=== PATIENT | male | born 1960 | race Caucasian/White ===

== ENCOUNTER 2021-11-06 21:36 | Inpatient (IN) ==
[2021-11-06] MEDS ORDERED: ONDANSETRON INJ 2 MG/ML 2 ML VIAL IV STA (21:45)
[2021-11-06 22:00] LABS: Basophils # (auto) 0.04 K/uL (0-0.2); Basophils % (auto) 0.6 %; Eosinophils # (auto) 0.27 K/uL (0-0.5); Eosinophils % (auto) 4.1 %; Hematocrit (blood only) 45.3 % (42-52); Hemoglobin 15.7 g/dL (14.0-18.0); Lymphocytes # (auto) 2.44 K/uL (1.2-3.4); Lymphocytes % (auto) 37.1 %; Mean Corpuscular Hemoglobin 31.6 pg (25-34); Mean Corpuscular Hgb Conc 34.7 g/dL (32-36); Mean Corpuscular Volume 91.1 fL (80-100); Mean Platelet Volume 11.5 fL (7.4-10.4); Monocytes # (auto) 0.62 K/uL (0.11-0.59); Monocytes % (auto) 9.4 %; Neutrophils # (auto) 3.21 K/uL (1.4-6.5); Neutrophils % (auto) 48.8 %; Platelet Count 203 K/uL (130-400); RDW Standard Deviation 47.1 fL (36.4-46.3); Red Blood Count 4.97 M/uL (4.7-6.1); White Blood Count 6.58 K/uL (4.8-10.8)
[2021-11-06 22:23] LABS: Albumin Globulin Ratio 1.5 (0.9-2); Albumin Level 4.4 gm/dl (3.4-5.0); BUN Creatinine Ratio 15.2 (10-20); Bilirubin,Total 0.8 mg/dl (0.2-1.0); Calcium 9.5 mg/dl (8.5-10.1); Creatinine Clr Calc Pharmacy 91.1 ml/min; Est GFR (African American) 88.4 ml/min; Est GFR (Non-African American) 76.2 ml/min; Globulin 2.9 gm/dl (2.5-4.0); Potassium 3.5 mmol/L (3.5-5.1); Total Protein 7.3 gm/dl (6.0-8.3)
[2021-11-06 22:26] LABS: Troponin I 0.14 ng/ml (0-0.04)
[2021-11-06] MEDS ORDERED: Heparin IV Adult Wt-Based Standard WITH Bolus Protocol IV STA (22:51)
[2021-11-06] MEDS ORDERED: HEPARIN SOD (PORCINE) 1000 UNIT/ML IV ONE (23:06)
[2021-11-06] MEDS ORDERED: HEPARIN SODIUM/DEXTROSE 25,000 UNITS/500 ML BAG IV SCH (23:15)
--- NOTE | 2021-11-06 23:18 | Emergency Department Note ---
History of Present Illness General Chief complaint: Cardiac Assessment Time Seen by Provider: 11/06/21 21:44 History of Present Illness This 61-year-old on Xarelto for history of blood clots presents to the ER co mplaining of pain with nausea and diaphoresis tonight that has resolved after aspirin times Location: Chest Quality: Discomfort Severity: Moderate Duration: Tonight Timing: Tonight Context: Patient was concerned and called EMS Modifying factors: better with aspirin; worse with nothing Patient states he took a Xarelto and then vomited immediately afterwards tonight. He thought his chest pain was from reflux as this appears to be recurrent problem for him. He has appointment next month with cardiology for stress test. No prior heart attack. Patient denies dyspnea, abdominal pain, f ever, chills, flulike illness. Home Medications Medication Instructions Recorded Confirmed Type cholecalciferol (vitamin D3) 50 2,000 mcg PO DAILY 05/28/20 11/06/21 History mcg (2,000 unit) capsule losartan 25 mg tablet 25 mg PO DAILY 05/28/20 11/06/21 History metoprolol succinate 25 mg 25 mg PO DAILY 05/28/20 11/06/21 History tablet,extended release 24 hr rivaroxaban 10 mg tablet (Xarelto) 10 mg PO QPM 05/28/20 11/06/21 History atorvastatin 10 mg tablet 10 mg PO QAM 11/06/21 11/06/21 History levothyroxine 25 mcg tablet 25 mcg PO QAM 11/06/21 11/06/21 History omeprazole 40 mg capsule,delayed 40 mg PO QAM PRN 11/06/21 11/06/21 History release omeprazole 40 mg capsule,delayed 40 mg PO QPM 11/06/21 11/06/21 History release triamcinolone acetonide 0.1 % 1 applic MUCOUS MEMBRANE TID 11/06/21 11/06/21 History dental paste (Oralone) Allergies Allergy/AdvReac Type Severity Reaction Status Date / Time lisinopril Allergy Unknown dry cough Verified 11/06/21 23:19 Past Med/Surg History Medical History Family history of blood clots Hypertension Surgical History H/O vasectomy Social History Smoking Status: Current every day smoker Tobacco Type: Cigarettes Preferred Language: Italian Feels Safe at Home: Yes Review of Systems A total of 10 systems reviewed and were otherwise negative Physical Exam Vital Signs Vital Signs - 24 hr 11/06/21 21:22 11/06/21 21:45 11/06/21 23:22 Temperature 36.7 C Temperature Source Oral Pulse Rate 66 Pulse Rate [Left Finger] 54 L Pulse Rhythm Regular Pulse Rhythm [Left Finger] Regular Pulse Strength Normal Pulse Strength [Left Finger] Normal Respiratory Rate 16 18 Respiratory Effort / Characteristics Non-Labored Non-Labored Respiratory Depth Normal Normal Respiratory Pattern Regular Blood Pressure [Left Arm] 128/88 121/77 Blood Pressure Mean [Left Arm] 101 91 Blood Pressure Position Semi-fowlers Blood Pressure Position [Left Arm] Semi-fowlers Lying Pulse Oximetry 96 96 97 Oxygen Delivery Method Room Air Room Air Sepsis Recent Fever Within 48 Hours No Sepsis New/Unexplained Change in Mental Status No Sepsis Action Taken by Nursing No Action Required VITALS: Vitals are noted on the nurse's note and reviewed by myself. Vital signs stable. GENERAL: Pleasant male, in no acute distress, nondiaphoretic, well-developed well-nourished. SKIN: The skin was without rashes, erythema, edema, or bruising. There is no tenting of the skin. Capillary reflex less than 2 seconds. HEAD: Normocephalic atraumatic. EARS: External auditory canals clear, EYES: Pupils equal round and reactive to light and accommodation. Conjunctivae without injection, sclerae without icterus. Extraocular movements intact. NOSE: Patent, turbinates without inflammation or discharge. MOUTH: Mucous membranes moist. Pharynx without erythema or exudate. Uvula midline. Airway patent. Tongue does not deviate. NECK: Supple without nuchal rigidity. No lymphadenopathy. No thyromegaly. Cervical spine is nontender. No JVD. HEART: Regular rate and rhythm LUNGS: Clear to auscultation bilaterally without wheezes, rales or rhonchi. No retractions or accessory muscle use. ABDOMEN: Positive bowel sounds x 4. Normal tympanic percussion. Soft, nontender, without masses or organomegaly. Dunne sign negative. No guarding o r rebound tenderness. No CVA tenderness MUSCULOSKELETAL: No muscle atrophy, erythema, or edema noted. NEURO: Patient was alert and oriented to person place and time. Normal sensation to light and sharp touch. No focal neurological deficits. Course Administered Medications Discontinued Medications Ondansetron HCl (Ondansetron Inj 2 Mg/Ml 2 Ml Vial) 4 mg IV NOW STA Stop: 11/06/21 21:46 Last Admin: 11/06/21 21:53 Dose: 4 mg Documented by: [id number] Critical Care Time Critical Care Time: Yes Total Critical Care Time: 35 I have personally spent 35 minutes of critical care time in the direct management of this patient. This includes bedside care, interpretation of diagnostic studies, and testing, discussion with consultants, patient, and family members, and other required patient management activities. This 35 minutes is in excess of all separately billable procedures. Medical Decision Making Medical Records Attestation: I reviewed the patient's medical records. Home Medications Current Medication List: was personally reviewed by me Laboratory Data Attestation: I reviewed the patient's lab results. Result diagrams: 11/06/21 21:50 11/06/21 21:50 Lab Results 11/06/21 11/06/21 11/06/21 Range/Units 21:50 21:50 22:49 WBC 6.58 (4.8-10.8) K/uL RBC 4.97 (4.7-6.1) M/uL Hgb 15.7 (14.0-18.0) g/dL Hct 45.3 (42-52) % MCV 91.1 (80-100) fL MCH 31.6 (25-34) pg MCHC 34.7 (32-36) g/dL RDW Std Deviation 47.1 H (36.4-46.3) fL RDW Coeff of Dane 14.0 (11.5-14.5) % Plt Count 203 (130-400) K/uL MPV 11.5 H (7.4-10.4) fL Immature Gran % (Auto) 0.0 % Neut % (Auto) 48.8 % Lymph % (Auto) 37.1 % [place] % (Auto) 9.4 % Eos % (Auto) 4.1 % Baso % (Auto) 0.6 % Neut # (Auto) 3.21 (1.4-6.5) K/uL Lymph # (Auto) 2.44 (1.2-3.4) K/uL [place] # (Auto) 0.62 H (0.11-0.59) K/uL Eos # (Auto) 0.27 (0-0.5) K/uL Baso # (Auto) 0.04 (0-0.2) K/uL Immature Gran # (Auto) 0.00 (0.00-0.02) K/uL PT (9.0-12.0) Seconds INR (0.9-1.1) APTT (21.0-31.0) Seconds PTT Ratio Sodium 138 (136-145) mmol/L Potassium 3.5 (3.5-5.1) mmol/L Chloride 102 (98-107) mmol/L Carbon Dioxide 29 (21-32) mmol/L Anion Gap 7 (3-11) BUN 16 (6-23) mg/dl Creatinine 1.05 (0.6-1.4) mg/dl Est Cr Clr Drug Dosing 91.1 ml/min Est GFR ( Amer) 88.4 ml/min Est GFR (Non-Af Amer) 76.2 ml/min BUN/Creatinine Ratio 15.2 (10-20) Glucose 104 H (70-99(Fasting)) mg/dl Calcium 9.5 (8.5-10.1) mg/dl Total Bilirubin 0.8 (0.2-1.0) mg/dl AST 18 (13-39) U/L ALT 14 (7-52) U/L Alkaline Phosphatase 52 (34-104) U/L Troponin I 0.14 H* (0-0.04) ng/ml Total Protein 7.3 (6.0-8.3) gm/dl Albumin 4.4 (3.4-5.0) gm/dl Globulin 2.9 (2.5-4.0) gm/dl Albumin/Globulin Ratio 1.5 (0.9-2) Lipase 22 (11-82) U/L SARS-CoV-2, RNA, NAAT NEGATIVE (NEGATIVE) 11/06/21 Range/Units 23:05 WBC (4.8-10.8) K/uL RBC (4.7-6.1) M/uL Hgb (14.0-18.0) g/dL Hct (42-52) % MCV (80-100) fL MCH (25-34) pg MCHC (32-36) g/dL RDW Std Deviation (36.4-46.3) fL RDW Coeff of Dane (11.5-14.5) % Plt Count (130-400) K/uL MPV (7.4-10.4) fL Immature Gran % (Auto) % Neut % (Auto) % Lymph % (Auto) % [place] % (Auto) % Eos % (Auto) % Baso % (Auto) % Neut # (Auto) (1.4-6.5) K/uL Lymph # (Auto) (1.2-3.4) K/uL [place] # (Auto) (0.11-0.59) K/uL Eos # (Auto) (0-0.5) K/uL Baso # (Auto) (0-0.2) K/uL Immature Gran # (Auto) (0.00-0.02) K/uL PT 11.1 (9.0-12.0) Seconds INR 1.0 (0.9-1.1) APTT 29.5 (21.0-31.0) Seconds PTT Ratio 1.1 Sodium (136-145) mmol/L Potassium (3.5-5.1) mmol/L Chloride (98-107) mmol/L Carbon Dioxide (21-32) mmol/L Anion Gap (3-11) BUN (6-23) mg/dl Creatinine (0.6-1.4) mg/dl Est Cr Clr Drug Dosing ml/min Est GFR ( Amer) ml/min Est GFR (Non-Af Amer) ml/min BUN/Creatinine Ratio (10-20) Glucose (70-99(Fasting)) mg/dl Calcium (8.5-10.1) mg/dl Total Bilirubin (0.2-1.0) mg/dl AST (13-39) U/L ALT (7-52) U/L Alkaline Phosphatase (34-104) U/L Troponin I (0-0.04) ng/ml Total Protein (6.0-8.3) gm/dl Albumin (3.4-5.0) gm/dl Globulin (2.5-4.0) gm/dl Albumin/Globulin Ratio (0.9-2) Lipase (11-82) U/L SARS-CoV-2, RNA, NAAT (NEGATIVE) Imaging Data Attestation: I personally reviewed and interpreted this imaging study as follows: MDM Narrative Prior records/ancillary studies reviewed. Triage Nursing notes reviewed. Additional history obtained from EMS. The patient's history was concerning for chest pain. Differential diagnosis: Etiologies such as cardiac ischemia, aortic dissection, pulmonary embolism, pneumonia, pneumothorax, musculoskeletal, infections, pericarditis, myocarditis, esophageal rupture, gastrointestinal, as well as others were entertained. Physical examination: As above. ER treatment provided: An order was placed for continuous cardiac monitoring. The monitor shows a rate of 60-100 with a sinus rhythm. Heparin On reassessment the patient felt better. Diagnostic interpretation by me: #1 the electrocardiogram was ordered for chest pain EKG: Normal sinus, normal intervals, T wave inversion in aVL, T wave depression in the lateral leads, rate of 63. EKG compared to prior EKG with new ST-T wave changes noted. Impression normal sinus rhythm with ST-T wave changes interpreted by myself I think arrhythmia is unlikely. EKG shows normal sinus rhythm with no interval abnormalities such as QT prolongation or WPW. There are no findings to suggest Brugada syndrome. Cardiac monitoring in the emergency department reveals no tachycardic or bradycardic dysrhythmia. Hypertrophic cardiomyopathy was considered but there are no clear historical elements pointing toward this. EKG is not suggestive. The QRS voltage is not extremely large and there are no suggestive Q waves. #2 the electrocardiogram was ordered for chest pain EKG: Normal sinus, normal intervals, T wave inversion in aVL, T wave depression in the lateral leads, rate of 58. EKG compared to prior EKG with new ST-T wave changes noted. Impression sinus bradycardia with ST-T wave changes interpreted by myself I think arrhythmia is unlikely. EKG shows normal sinus rhythm with no interval abnormalities such as QT prolongation or WPW. There are no findings to suggest Brugada syndrome. Cardiac monitoring in the emergency department reveals no tachycardic or bradycardic dysrhythmia. Hypertrophic cardiomyopathy was considered but there are no clear historical elements pointing toward this. EKG is not suggestive. The QRS voltage is not extremely large and there are no suggestive Q waves. I did review the rhythm strips from EMS. The labs elevated troponin Imaging studies: Chest x-ray with no acute consolidation, pneumothorax or free air per my interpretation HEART SCORE: Hx: high/mod/low suspicion: 2 ECG: ST depression/nonspecific changes/normal: 2 Age: Greater than 65/45-64/less than 45: 1 Risk factors: (Hypertension, hyperlipidemia, diabetes, coronary disease, tobacco use, cocaine use): 1 Troponin: Greater than 2 times normal limits/1-2 times normal limits/normal: 1 Total: 7 Consultation: A consultation was placed with the hospitalist. The case was discussed and diagnostics were reviewed. The patient was evaluated in the ER for further treatment. Exam and history seem consistent with NSTEMI. Patient was given heparin. This was discussed with my attending. Results reviewed with patient and . All questions were answered. Patient will be admitted. Hospitalist was consulted. By the evaluation outlined above emergent etiologies such as aortic dissection, pulmonary embolism, pneumonia, pneumothorax, gastrointestinal, as well as others were deemed relatively unlikely. The pt informed about the findings as listed above. All questions were answered and pleased with the treatment. The chart was completed utilizing [employer] voice recognition software. Grammatical errors, random word insertions, pronoun errors, and incomplete sentences are an occassional consequence of this system due to software limitations, ambient noise, and hardware issues. Any formal questions or concerns about the content, text, or information contained within the body of this dictation should be directly addressed to the physician access services assistant for clarification. Impression & Plan Acute non-ST elevation myocardial infarction (NSTEMI) Discharge Plan Visit Data Chief Complaint: Cardiac Assessment ED Provider: Jad Agrawal ED Midlevel Provider: Andria Moss Discharge Problem: Acute non-ST elevation myocardial infarction (NSTEMI) Patient Disposition: Admitted As Inpatient Condition: Good Forms Stand Alone Forms: My [facility] Prescriptions Prescriptions: No Action losartan 25 mg tablet 25 mg PO DAILY RF: 0 metoprolol succinate 25 mg tablet extended release 24 hr 25 mg PO DAILY RF: 0 cholecalciferol (vitamin D3) 50 mcg (2,000 unit) capsule 2,000 mcg PO DAILY RF: 0 Xarelto 10 mg tablet 10 mg PO QPM RF: 0 atorvastatin 10 mg tablet 10 mg PO QAM RF: 0 omeprazole 40 mg capsule,delayed release(DR/EC) 40 mg PO QPM RF: 0 omeprazole 40 mg capsule,delayed release(DR/EC) 40 mg PO QAM PRN (Reason: Acid Reflux) RF: 0 levothyroxine 25 mcg tablet 25 mcg PO QAM RF: 0 triamcinolone acetonide [Oralone] 0.1 % paste 1 applic mucous membrane TID RF: 0 Referrals Referrals: Martita Urbina PA-C [Primary Care Provider] -
[2021-11-06 23:41] LABS: Partial Thromboplastin Ratio 1.1; Partial Thromboplastin Time 29.5 Seconds (21.0-31.0); Prothrombin Time 11.1 Seconds (9.0-12.0)
--- NOTE | 2021-11-07 00:42 | History & Physical Report ---
Date of Service November 07, 2021 Assessment & Plan (1) Acute non-ST elevation myocardial infarction (NSTEMI): Plan: hx nonocclusive CAD/PVD hypertension, stable hyperlipidemia on statin Rx LE DVT on Xarelto hx pituitary microadenoma/hypophysitis, stable hypothyroidism, euthyroid as of today's TSH prediabetes, hemoglobin A1c of 6 from 2017 Hypokalemia secondary to emesis ongoing tobacco abuse PCU Aspirin, beta-sherita, statin; nitro as needed IV heparin Follow troponin TTE, Cardiology consult Re: Non-STEMI N.p.o./hold Xarelto until patient seen by cardiology in a.m. Update lipid profile and hemoglobin A1c Nicotine patch as needed Replace potassium DVT prophylaxis. IV heparin Full code Text document was generated using [employer] voice recognition software. It may contain grammatical or spelling errors. Kindly contact undersigned for clarification of any documentation item in question. History of Present Illness Chief Complaint: Chest pain Primary Care Provider: Martita Urbina History obtained from patient and records. Medical history significant for nonocclusive CAD, history of myopericarditis, PVD, hypertension, hyperlipidemia, LE DVT on Xarelto, pituitary microadenoma/hypophysitis, hypothyroidism, prediabetes, ongoing tobacco abuse. Last confinement July 2009 for non-STEMI. Patient transferred to [facility]. Cardiac cath demonstrated 50% lesion mid LAD not found to be hemodynamically significant. EF initially found to be 49%. In the last month, patient noted 2 episodes of achy chest discomfort noted at night with shortness of breath relieved by antacid intake. Intermittent palpitation episodes. PCP recommended outpatient cardiology evaluation. Patient seen by [facility] cardiology last week. 14-day 0 monitor recommended. Stress echo and outpatient GI referral for possible EGD recommended. Patient counseled to resume home aspirin intake which patient has not been compliant with for a few years. Last night after dinner, patient noted achy chest discomfort initially relieved by Tums but later on noted to be persistent and more intense with radiation to the neck/jaw and with associated diaphoresis symptoms. Some relief with ASA intake at home. Nausea/emesis symptoms at the ER. IV heparin initiated at the ER. 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 Allergies Allergy/AdvReac Type Severity Reaction Status Date / Time lisinopril Allergy Unknown dry cough Verified 11/06/21 23:19 Home Medications Medication Instructions Recorded Confirmed Type cholecalciferol (vitamin D3) 50 2,000 mcg PO DAILY 05/28/20 11/06/21 History mcg (2,000 unit) capsule losartan 25 mg tablet 25 mg PO DAILY 05/28/20 11/06/21 History metoprolol succinate 25 mg 25 mg PO DAILY 05/28/20 11/06/21 History tablet,extended release 24 hr rivaroxaban 10 mg tablet (Xarelto) 10 mg PO QPM 05/28/20 11/06/21 History atorvastatin 10 mg tablet 10 mg PO QAM 11/06/21 11/06/21 History levothyroxine 25 mcg tablet 25 mcg PO QAM 11/06/21 11/06/21 History omeprazole 40 mg capsule,delayed 40 mg PO QAM PRN 11/06/21 11/06/21 History release omeprazole 40 mg capsule,delayed 40 mg PO QPM 11/06/21 11/06/21 History release triamcinolone acetonide 0.1 % 1 applic MUCOUS MEMBRANE TID 11/06/21 11/06/21 History dental paste (Oralone) Past Med/Surg History Medical History Family history of blood clots Hypertension Surgical History H/O vasectomy Social History Smoking Status: Current every day smoker Tobacco Type: Cigarettes Tobacco Cessation Education Requested by Patient: No Hx Alcohol Use: No Hx Substance Use: No Preferred Language: Mongolian Communication Ability: Effective Contestant Coordinator Required: No Beliefs That Will Affect Care: None Current Living Situation: Spouse Other Information That Helps Us Care for You: No Feels Safe at Home: Yes Safety Concerns: Feels Safe At This Time Assistive Devices: None Review of Systems Review of Systems: As per HPI, all 10 systems reviewed, all other ROS negative Physical Exam Physical Exam: GENERAL: Comfortable, pleasant, no respiratory distress SKIN: Normal color, warm HEENT: Partial alopecia, bespectacled, [place] palpebral conjunctivae, no ptosis, moist buccal mucosa NECK : Supple, no tenderness CHEST : CTA, no tenderness HEART : Bradycardic, no obvious murmurs ABDOMEN: Some distention, nontender EXTREMITIES : No LE swelling/tenderness, no other conspicuous deformities noted NEUROLOGIC : Coherent, no facial asymmetry, no other gross focality Results & Data Results & Data ([facility]) Vital Signs (Past 12 Hours) Vital Signs Temp Pulse Pulse Resp BP Pulse Ox 11/06/21 23:22 54 L 18 121/77 97 11/06/21 21:45 96 11/06/21 21:22 36.7 C 66 16 128/88 96 Laboratory Results Laboratory Results WBC 6.58 K/uL (4.8-10.8) 11/06/21 21:50 RBC 4.97 M/uL (4.7-6.1) 11/06/21 21:50 Hgb 15.7 g/dL (14.0-18.0) 11/06/21 21:50 Hct 45.3 % (42-52) 11/06/21 21:50 MCV 91.1 fL (80-100) 11/06/21 21:50 MCH 31.6 pg (25-34) 11/06/21 21:50 MCHC 34.7 g/dL (32-36) 11/06/21 21:50 RDW Std Deviation 47.1 fL (36.4-46.3) H 11/06/21 21:50 RDW Coeff of Dane 14.0 % (11.5-14.5) 11/06/21 21:50 Plt Count 203 K/uL (130-400) 11/06/21 21:50 MPV 11.5 fL (7.4-10.4) H 11/06/21 21:50 Immature Gran % (Auto) 0.0 % 11/06/21 21:50 Neut % (Auto) 48.8 % 11/06/21 21:50 Lymph % (Auto) 37.1 % 11/06/21 21:50 [place] % (Auto) 9.4 % 11/06/21 21:50 Eos % (Auto) 4.1 % 11/06/21 21:50 Baso % (Auto) 0.6 % 11/06/21 21:50 Neut # (Auto) 3.21 K/uL (1.4-6.5) 11/06/21 21:50 Lymph # (Auto) 2.44 K/uL (1.2-3.4) 11/06/21 21:50 [place] # (Auto) 0.62 K/uL (0.11-0.59) H 11/06/21 21:50 Eos # (Auto) 0.27 K/uL (0-0.5) 11/06/21 21:50 Baso # (Auto) 0.04 K/uL (0-0.2) 11/06/21 21:50 Immature Gran # (Auto) 0.00 K/uL (0.00-0.02) 11/06/21 21:50 PT 11.1 Seconds (9.0-12.0) 11/06/21 23:05 INR 1.0 (0.9-1.1) 11/06/21 23:05 APTT 29.5 Seconds (21.0-31.0) 11/06/21 23:05 PTT Ratio 1.1 11/06/21 23:05 Sodium 138 mmol/L (136-145) 11/06/21 21:50 Potassium 3.5 mmol/L (3.5-5.1) 11/06/21 21:50 Chloride 102 mmol/L (98-107) 11/06/21 21:50 Carbon Dioxide 29 mmol/L (21-32) 11/06/21 21:50 Anion Gap 7 (3-11) 11/06/21 21:50 BUN 16 mg/dl (6-23) 11/06/21 21:50 Creatinine 1.05 mg/dl (0.6-1.4) 11/06/21 21:50 Est Cr Clr Drug Dosing 91.1 ml/min 11/06/21 21:50 Est GFR ( Amer) 88.4 ml/min 11/06/21 21:50 Est GFR (Non-Af Amer) 76.2 ml/min 11/06/21 21:50 BUN/Creatinine Ratio 15.2 (10-20) 11/06/21 21:50 Glucose 104 mg/dl (70-99(Fasting)) H 11/06/21 21:50 Calcium 9.5 mg/dl (8.5-10.1) 11/06/21 21:50 Total Bilirubin 0.8 mg/dl (0.2-1.0) 11/06/21 21:50 AST 18 U/L (13-39) 11/06/21 21:50 ALT 14 U/L (7-52) 11/06/21 21:50 Alkaline Phosphatase 52 U/L (34-104) 11/06/21 21:50 Troponin I 0.14 ng/ml (0-0.04) H* 11/06/21 21:50 Total Protein 7.3 gm/dl (6.0-8.3) 11/06/21 21:50 Albumin 4.4 gm/dl (3.4-5.0) 11/06/21 21:50 Globulin 2.9 gm/dl (2.5-4.0) 11/06/21 21:50 Albumin/Globulin Ratio 1.5 (0.9-2) 11/06/21 21:50 Lipase 22 U/L (11-82) 11/06/21 21:50 SARS-CoV-2, RNA, NAAT NEGATIVE (NEGATIVE) 11/06/21 22:49 Diagnostic Findings Chest x-ray as per my interpretation atelectasis, elevated right hemidiaphragm EKG as per my interpretation : Rate 55, sinus bradycardia, LAD, LAFB, T wave abnormalities lateral leads
[2021-11-07] MEDS ORDERED: LACTATED RINGER'S 1,000 ML IV SCH (01:00)
--- NOTE | 2021-11-07 02:01 | Emergency Department Note ---
ED Visit Note Patient was seen in conjunction with the physician assistant infant teacher, please see her note for full details. In brief, the patient is a 61-year-old gentleman who presented to the emergency department with chief complaint of transient episode of chest pain.His initial EKG did not show any evidence of ST elevation, on my assessment he is pain-free and he has been largely pain-free throughout his stay here in the ED. His troponin was noted to be elevated initially at 0.14, patient was placed on a heparin drip and admitted to the hospitalist service. While still here in the ED although admitted to the hospitalist service, he was noted to have an elevation in his troponin to 4.7 on repeat, I did evaluate the patient in the room at this point and I did repeat an EKG that shows some more pronounced T wave inversions in leads V2 through V5, there is no ST elevation, patient remains pain-free at this time, he is on heparin drip, he was already given aspirin. Patient states he is currently comfortable. He tells me he does not have any chest pain. I discussed the above findings with the on-call hospitalist, Dr. Hanson, who is aware of these lab and EKG changes,and he is updated that the patient is still pain-free. We will plan for cardiology consultation in the morning for likely diagnostic catheterization. Patient is updated and aware and he was admitted in stable condition. .
[2021-11-07] MEDS ORDERED: PROMETHAZINE HCL 12.5 MG in SODIUM CHLORIDE 0.9% 50 ML IV PRN (02:44)
[2021-11-07] MEDS ORDERED: traMADol HCL 50 MG TABLET PO PRN (02:44)
[2021-11-07] MEDS ORDERED: MoRPHine SULFATE 4 MG/ML 1 ML CARP\\VIAL IV PRN (02:44)
[2021-11-07] MEDS ORDERED: NITROGLYCERIN SL 0.4 MG/TAB TAB SL PRN (02:44)
[2021-11-07] MEDS ORDERED: LORazepam 2 MG/1 ML VIAL IV PRN (02:44)
[2021-11-07] MEDS ORDERED: ACETAMINOPHEN 325 MG TAB PO PRN (02:44)
[2021-11-07] MEDS: LEVOTHYROXINE SODIUM 25 MCG TABLET PO SCH (05:36)
[2021-11-07 06:42] LABS: Basophils # (auto) 0.04 K/uL (0-0.2); Basophils % (auto) 0.6 %; Eosinophils # (auto) 0.29 K/uL (0-0.5); Eosinophils % (auto) 4.7 %; Hematocrit (blood only) 42.2 % (42-52); Hemoglobin 14.6 g/dL (14.0-18.0); Immature Granulocytes # (auto) 0.01 K/uL (0.00-0.02); Immature Granulocytes % (auto) 0.2 %; Lymphocytes # (auto) 2.52 K/uL (1.2-3.4); Lymphocytes % (auto) 40.7 %; Mean Corpuscular Hemoglobin 31.2 pg (25-34); Mean Corpuscular Hgb Conc 34.6 g/dL (32-36); Mean Corpuscular Volume 90.2 fL (80-100); Mean Platelet Volume 11.8 fL (7.4-10.4); Monocytes # (auto) 0.54 K/uL (0.11-0.59); Monocytes % (auto) 8.7 %; Neutrophils # (auto) 2.79 K/uL (1.4-6.5); Neutrophils % (auto) 45.1 %; Platelet Count 191 K/uL (130-400); RDW Coefficient of Variation 14.2 % (11.5-14.5); RDW Standard Deviation 46.5 fL (36.4-46.3); Red Blood Count 4.68 M/uL (4.7-6.1); White Blood Count 6.19 K/uL (4.8-10.8)
[2021-11-07 06:47] LABS: Estimated Average Glucose 120 mg/dl; Hemoglobin A1C 5.8 % (4.5-5.6)
[2021-11-07 06:53] LABS: BUN Creatinine Ratio 17.4 (10-20); Calcium 8.1 mg/dl (8.5-10.1); Chol HDL Ratio 4.1 (0-5); Creatinine Clr Calc Pharmacy 95.3 ml/min; Est GFR (African American) 103.7 ml/min; Est GFR (Non-African American) 89.5 ml/min; Potassium 3.9 mmol/L (3.5-5.1)
[2021-11-07 06:57] LABS: Troponin I 9.9 ng/ml (0-0.04)
[2021-11-07 07:02] LABS: Partial Thromboplastin Ratio > 5.1
[2021-11-07] MEDS ORDERED: PERFLUTREN LIPID MICROSPHERE (DEFINITY) IV ONE (07:09)
[2021-11-07 07:21] LABS: Partial Thromboplastin Time > 139.0 Seconds (21.0-31.0)
--- NOTE | 2021-11-07 07:52 | XRay Report ---
XR chest 1V portable HISTORY: 61 years-old Male Chest Pain acute atypical chest pain COMPARISON: Chest radiograph 05/06/2021 TECHNIQUE: Portable AP view of the chest FINDINGS: The cardiac silhouette is upper limits of normal in size. No pneumothorax, large pleural effusion or overt pulmonary edema. Mild blunting of the left costophrenic angle with minimal bibasilar densities suggestive of atelectasis. Degenerative changes of the shoulders and spine. IMPRESSION: Mild blunting of the left costophrenic angle, likely secondary to atelectasis versus trac e pleural effusion. ACT 112: Negative or not required by law. The above report was generated using voice recognition software. It may contain grammatical, syntax o r spelling errors. Electronically signed by: David Rubin M.D. 11/07/2021 7:51 AM
--- NOTE | 2021-11-07 08:24 | Cardiology Consultation ---
Date of Consultation November 07, 2021 History of Present Illness Reason for Consultation: EKG changes, abnormal echo, NSTEMI Requesting Physician: [facility] Hospitalist team Attending Physician: Tata Mcgregor MD History of Present Illness 61 year old male- presented to ED d/t two episodes of achy chest discomfort over the last mon that was noted at night. Last evening while eating dinner he had an intense chest pressure that radiated to his neck and jaw. Became diaphoretic. Took ASA with some relief in symptoms. His initial EKG did not show any evidence of ST elevation, he was pain-free. His troponin was noted to be elevated initially at 0.14, patient was placed on a heparin drip and admitted. While still in ED he was noted to have an elevation in his troponin to 4.7 on repeat. Repeat EKG shows some more pronounced T wave inversions in leads V2 through V5, there is no ST elevation, again patient was pain free. He was on a heparin drip and given aspirin. Of note, follows with Jad Casey as an outpatient and was seen on 10/30. Noted increased HORTON and burning chest discomfort while in bed aided by PRN Tums. Labs today showed a stable renal function. Troponin increased from 0.14>>9.90 Cardiac Problem List: 1.Presentation to [facility] on 07/27/09 with chest discomfort. EKG was within normal limits. He was found to have elevated troponin I with peak level of 2.5 mg/mL and was treated medically initially for a NSTEMI. Patient transferred to [facility] in [place] with car diac catheterization performed on 07/30/09, demonstrating a 50% lesion of the mid left anterior descending coronary which was found to not be hemodynamically significant by FFR. The other coronary arteries were free of angiographically significant disease. Cardiac MRI was performed with findings consistent with myopericarditis. The left ventricle was found to be moderately enlarged with mild reduction in left ventricular systolic function. The calculated ejection fraction was found to be 49%. There were findings of subepicardial scar noted in the infero apex as well as the basal anteroseptum. 2. Hypertension 3.Dyslipidemia 4.Tobacco abuse, 1/2 ppd 5.History of unprovoked right lower extremity in May 2015 with Hematologic recommendations for life long anticoagulation Allergies Allergy/AdvReac Type Severity Reaction Status Date / Time lisinopril Allergy Unknown dry cough Verified 11/06/21 23:19 Home Medications Medication Instructions Recorded Confirmed Type cholecalciferol (vitamin D3) 50 2,000 mcg PO DAILY 05/28/20 11/06/21 History mcg (2,000 unit) capsule losartan 25 mg tablet 25 mg PO DAILY 05/28/20 11/06/21 History metoprolol succinate 25 mg 25 mg PO DAILY 05/28/20 11/06/21 History tablet,extended release 24 hr rivaroxaban 10 mg tablet (Xarelto) 10 mg PO QPM 05/28/20 11/06/21 History atorvastatin 10 mg tablet 10 mg PO QAM 11/06/21 11/06/21 History levothyroxine 25 mcg tablet 25 mcg PO QAM 11/06/21 11/06/21 History omeprazole 40 mg capsule,delayed 40 mg PO QAM PRN 11/06/21 11/06/21 History release omeprazole 40 mg capsule,delayed 40 mg PO QPM 11/06/21 11/06/21 History release triamcinolone acetonide 0.1 % 1 applic MUCOUS MEMBRANE TID 11/06/21 11/06/21 History dental paste (Oralone) Patient History Medical History Family history of blood clots Hypertension Surgical History H/O vasectomy Social History Smoking Status: Current every day smoker Tobacco Type: Cigarettes Tobacco Cessation Education Requested by Patient: No Hx Alcohol Use: No Hx Substance Use: No Preferred Language: [place] Communication Ability: Effective Community Health Promoter Required: No Beliefs That Will Affect Care: None Current Living Situation: Spouse Other Information That Helps Us Care for You: No Feels Safe at Home: Yes Safety Concerns: Feels Safe At This Time Assistive Devices: None Review of Systems Review of Systems: All systems reviewed & are unremarkable except as noted in HPI & below Physical Exam Physical Exam: General: alert, healthy, no distress, well nourished, well developed, comfortable and cooperative Skin: no rashes or significant lesions Eyes: PER. Conjunctiva pink, sclera clear. HENT: Normocephalic. Atraumatic. Neck: No carotid bruits. No JVD. No HJR. Heart: Regular at 58 bpm. No murmur. No rub. No gallop. PMI is nondisplaced. Lungs: Diminished. Decreased. Left mid rhonchi. No wheeze. Abdomen: +BS. Soft. Nontender. No masses. No organomegaly. Extremities: No clubbing, cyanosis, or edema. Pulses: radial=2/4, posterior tibial=2/4. Limited neurological examination: No focal deficit. Results & Data ([facility]) Vital Signs (Past 12 Hours) Vital Signs Temp Pulse Pulse Resp BP Pulse Ox 11/07/21 07:35 36.6 C 54 L 20 93/58 L 95 11/07/21 03:04 53 L 11/07/21 02:27 36.4 C L 53 L 109/72 94 11/07/21 01:00 57 L 16 118/72 96 11/06/21 23:22 54 L 18 121/77 97 11/06/21 21:45 96 11/06/21 21:22 36.7 C 66 16 128/88 96 Laboratory Results 11/07/21 11/07/21 11/07/21 Range/Units 05:53 05:53 05:53 WBC 6.19 (4.8-10.8) K/uL RBC 4.68 L (4.7-6.1) M/uL Hgb 14.6 (14.0-18.0) g/dL Hct 42.2 (42-52) % MCV 90.2 (80-100) fL MCH 31.2 (25-34) pg MCHC 34.6 (32-36) g/dL RDW Std Deviation 46.5 H (36.4-46.3) fL RDW Coeff of Dane 14.2 (11.5-14.5) % Plt Count 191 (130-400) K/uL MPV 11.8 H (7.4-10.4) fL Immature Gran % (Auto) 0.2 % Neut % (Auto) 45.1 % Lymph % (Auto) 40.7 % [place] % (Auto) 8.7 % Eos % (Auto) 4.7 % Baso % (Auto) 0.6 % Neut # (Auto) 2.79 (1.4-6.5) K/uL Lymph # (Auto) 2.52 (1.2-3.4) K/uL [place] # (Auto) 0.54 (0.11-0.59) K/uL Eos # (Auto) 0.29 (0-0.5) K/uL Baso # (Auto) 0.04 (0-0.2) K/uL Immature Gran # (Auto) 0.01 (0.00-0.02) K/uL PT (9.0-12.0) Seconds INR (0.9-1.1) APTT > 139.0 H* (21.0-31.0) Seconds PTT Ratio > 5.1 Sodium 138 (136-145) mmol/L Potassium 3.9 (3.5-5.1) mmol/L Chloride 106 (98-107) mmol/L Carbon Dioxide 25 (21-32) mmol/L Anion Gap 7 (3-11) BUN 16 (6-23) mg/dl Creatinine 0.92 (0.6-1.4) mg/dl Est Cr Clr Drug Dosing 95.3 ml/min Est GFR ( Amer) 103.7 ml/min Est GFR (Non-Af Amer) 89.5 ml/min BUN/Creatinine Ratio 17.4 (10-20) Glucose 95 (70-99(Fasting)) mg/dl Estimat Average Glucose mg/dl Hemoglobin A1c (4.5-5.6) % Calcium 8.1 L (8.5-10.1) mg/dl Total Bilirubin (0.2-1.0) mg/dl AST (13-39) U/L ALT (7-52) U/L Alkaline Phosphatase (34-104) U/L Troponin I 9.90 H* (0-0.04) ng/ml Total Protein (6.0-8.3) gm/dl Albumin (3.4-5.0) gm/dl Globulin (2.5-4.0) gm/dl Albumin/Globulin Ratio (0.9-2) Triglycerides 93 (0-150) mg/dl Cholesterol 173 (0-200) mg/dl LDL Cholesterol, Calc 112 mg/dl VLDL Cholesterol, Calc 19 (0-30) mg/dl HDL Cholesterol 42 mg/dl Cholesterol/HDL Ratio 4.1 (0-5) Lipase (11-82) U/L TSH (0.300-4.500) uIu/ml SARS-CoV-2, RNA, NAAT (NEGATIVE) 11/07/21 11/06/21 11/06/21 Range/Units 01:00 23:05 22:49 WBC (4.8-10.8) K/uL RBC (4.7-6.1) M/uL Hgb (14.0-18.0) g/dL Hct (42-52) % MCV (80-100) fL MCH (25-34) pg MCHC (32-36) g/dL RDW Std Deviation (36.4-46.3) fL RDW Coeff of Dane (11.5-14.5) % Plt Count (130-400) K/uL MPV (7.4-10.4) fL Immature Gran % (Auto) % Neut % (Auto) % Lymph % (Auto) % [place] % (Auto) % Eos % (Auto) % Baso % (Auto) % Neut # (Auto) (1.4-6.5) K/uL Lymph # (Auto) (1.2-3.4) K/uL [place] # (Auto) (0.11-0.59) K/uL Eos # (Auto) (0-0.5) K/uL Baso # (Auto) (0-0.2) K/uL Immature Gran # (Auto) (0.00-0.02) K/uL PT 11.1 (9.0-12.0) Seconds INR 1.0 (0.9-1.1) APTT 29.5 (21.0-31.0) Seconds PTT Ratio 1.1 Sodium (136-145) mmol/L Potassium (3.5-5.1) mmol/L Chloride (98-107) mmol/L Carbon Dioxide (21-32) mmol/L Anion Gap (3-11) BUN (6-23) mg/dl Creatinine (0.6-1.4) mg/dl Est Cr Clr Drug Dosing ml/min Est GFR ( Amer) ml/min Est GFR (Non-Af Amer) ml/min BUN/Creatinine Ratio (10-20) Glucose (70-99(Fasting)) mg/dl Estimat Average Glucose mg/dl Hemoglobin A1c (4.5-5.6) % Calcium (8.5-10.1) mg/dl Total Bilirubin (0.2-1.0) mg/dl AST (13-39) U/L ALT (7-52) U/L Alkaline Phosphatase (34-104) U/L Troponin I 4.72 H* (0-0.04) ng/ml Total Protein (6.0-8.3) gm/dl Albumin (3.4-5.0) gm/dl Globulin (2.5-4.0) gm/dl Albumin/Globulin Ratio (0.9-2) Triglycerides (0-150) mg/dl Cholesterol (0-200) mg/dl LDL Cholesterol, Calc mg/dl VLDL Cholesterol, Calc (0-30) mg/dl HDL Cholesterol mg/dl Cholesterol/HDL Ratio (0-5) Lipase (11-82) U/L TSH (0.300-4.500) uIu/ml SARS-CoV-2, RNA, NAAT NEGATIVE (NEGATIVE) 11/06/21 11/06/21 11/06/21 Range/Units 21:50 21:50 21:50 WBC (4.8-10.8) K/uL RBC (4.7-6.1) M/uL Hgb (14.0-18.0) g/dL Hct (42-52) % MCV (80-100) fL MCH (25-34) pg MCHC (32-36) g/dL RDW Std Deviation (36.4-46.3) fL RDW Coeff of Dane (11.5-14.5) % Plt Count (130-400) K/uL MPV (7.4-10.4) fL Immature Gran % (Auto) % Neut % (Auto) % Lymph % (Auto) % [place] % (Auto) % Eos % (Auto) % Baso % (Auto) % Neut # (Auto) (1.4-6.5) K/uL Lymph # (Auto) (1.2-3.4) K/uL [place] # (Auto) (0.11-0.59) K/uL Eos # (Auto) (0-0.5) K/uL Baso # (Auto) (0-0.2) K/uL Immature Gran # (Auto) (0.00-0.02) K/uL PT (9.0-12.0) Seconds INR (0.9-1.1) APTT (21.0-31.0) Seconds PTT Ratio Sodium 138 (136-145) mmol/L Potassium 3.5 (3.5-5.1) mmol/L Chloride 102 (98-107) mmol/L Carbon Dioxide 29 (21-32) mmol/L Anion Gap 7 (3-11) BUN 16 (6-23) mg/dl Creatinine 1.05 (0.6-1.4) mg/dl Est Cr Clr Drug Dosing 91.1 ml/min Est GFR ( Amer) 88.4 ml/min Est GFR (Non-Af Amer) 76.2 ml/min BUN/Creatinine Ratio 15.2 (10-20) Glucose 104 H (70-99(Fasting)) mg/dl Estimat Average Glucose 120 mg/dl Hemoglobin A1c 5.8 H (4.5-5.6) % Calcium 9.5 (8.5-10.1) mg/dl Total Bilirubin 0.8 (0.2-1.0) mg/dl AST 18 (13-39) U/L ALT 14 (7-52) U/L Alkaline Phosphatase 52 (34-104) U/L Troponin I 0.14 H* (0-0.04) ng/ml Total Protein 7.3 (6.0-8.3) gm/dl Albumin 4.4 (3.4-5.0) gm/dl Globulin 2.9 (2.5-4.0) gm/dl Albumin/Globulin Ratio 1.5 (0.9-2) Triglycerides (0-150) mg/dl Cholesterol (0-200) mg/dl LDL Cholesterol, Calc mg/dl VLDL Cholesterol, Calc (0-30) mg/dl HDL Cholesterol mg/dl Cholesterol/HDL Ratio (0-5) Lipase 22 (11-82) U/L TSH 4.484 (0.300-4.500) uIu/ml SARS-CoV-2, RNA, NAAT (NEGATIVE) 11/06/21 Range/Units 21:50 WBC 6.58 (4.8-10.8) K/uL RBC 4.97 (4.7-6.1) M/uL Hgb 15.7 (14.0-18.0) g/dL Hct 45.3 (42-52) % MCV 91.1 (80-100) fL MCH 31.6 (25-34) pg MCHC 34.7 (32-36) g/dL RDW Std Deviation 47.1 H (36.4-46.3) fL RDW Coeff of Dane 14.0 (11.5-14.5) % Plt Count 203 (130-400) K/uL MPV 11.5 H (7.4-10.4) fL Immature Gran % (Auto) 0.0 % Neut % (Auto) 48.8 % Lymph % (Auto) 37.1 % [place] % (Auto) 9.4 % Eos % (Auto) 4.1 % Baso % (Auto) 0.6 % Neut # (Auto) 3.21 (1.4-6.5) K/uL Lymph # (Auto) 2.44 (1.2-3.4) K/uL [place] # (Auto) 0.62 H (0.11-0.59) K/uL Eos # (Auto) 0.27 (0-0.5) K/uL Baso # (Auto) 0.04 (0-0.2) K/uL Immature Gran # (Auto) 0.00 (0.00-0.02) K/uL PT (9.0-12.0) Seconds INR (0.9-1.1) APTT (21.0-31.0) Seconds PTT Ratio Sodium (136-145) mmol/L Potassium (3.5-5.1) mmol/L Chloride (98-107) mmol/L Carbon Dioxide (21-32) mmol/L Anion Gap (3-11) BUN (6-23) mg/dl Creatinine (0.6-1.4) mg/dl Est Cr Clr Drug Dosing ml/min Est GFR ( Amer) ml/min Est GFR (Non-Af Amer) ml/min BUN/Creatinine Ratio (10-20) Glucose (70-99(Fasting)) mg/dl Estimat Average Glucose mg/dl Hemoglobin A1c (4.5-5.6) % Calcium (8.5-10.1) mg/dl Total Bilirubin (0.2-1.0) mg/dl AST (13-39) U/L ALT (7-52) U/L Alkaline Phosphatase (34-104) U/L Troponin I (0-0.04) ng/ml Total Protein (6.0-8.3) gm/dl Albumin (3.4-5.0) gm/dl Globulin (2.5-4.0) gm/dl Albumin/Globulin Ratio (0.9-2) Triglycerides (0-150) mg/dl Cholesterol (0-200) mg/dl LDL Cholesterol, Calc mg/dl VLDL Cholesterol, Calc (0-30) mg/dl HDL Cholesterol mg/dl Cholesterol/HDL Ratio (0-5) Lipase (11-82) U/L TSH (0.300-4.500) uIu/ml SARS-CoV-2, RNA, NAAT (NEGATIVE) Diagnostic Findings January 14, 2017 [facility] Interpretation Summary (as per Dr. Chou): STRESS STUDY: The stress EKG response showed no evidence of ischemia. The test was terminated due to leg fatigue and shortness of breath. No chest discomfort was reported. Exercise capacity is above average. The resting left ventricular wall motion is normal. The left ventricular ejection fraction increases normally with stress. The left ventricular wall motion with stress is inadequately assessed. The post exercise echocardiographic images are technically limited, with foreshortening of the apical images and therefore the LAD territory was not adequately visualized. RESTING STUDY: Mild mitral regurgitation is present.
--- NOTE | 2021-11-07 08:43 | Electrocardiogram Report ---
Test Reason : Blood Pressure : / mmHG Vent. Rate : 063 BPM Atrial Rate : 063 BPM P-R Int : 200 ms QRS Dur : 096 ms QT Int : 400 ms P-R-T Axes : 027 -15 097 degrees QTc Int : 409 ms Normal sinus rhythm ST depression in Anterior leads , consider ischemia Diffuse Nonspecific T wave abnormality Abnormal ECG When compared with ECG of 06-MAY-2021 04:31, ST now depressed in Anterior leads Confirmed by Ralph Javier ([id number]) on 11/07/2021 8:42:41 AM Referred By: REFERRED SELF Confirmed By:Ralph Javier
--- NOTE | 2021-11-07 08:44 | Electrocardiogram Report ---
Test Reason : Blood Pressure : / mmHG Vent. Rate : 058 BPM Atrial Rate : 058 BPM P-R Int : 202 ms QRS Dur : 098 ms QT Int : 442 ms P-R-T Axes : 014 -22 098 degrees QTc Int : [address] depression in Anterior leads Diffuse Nonspecific T wave abnormality Abnormal ECG When compared with ECG of 06-NOV-2021 21:43, ST depression in Anterior leads less pronounced Confirmed by Ralph Javier ([id number]) on 11/07/2021 8:44:21 AM Referred By: REFERRED SELF Confirmed By:Ralph Javier
--- NOTE | 2021-11-07 08:45 | Cardiology Consultation ---
Date of Consultation November 07, 2021 Assessment & Plan (1) Acute non-ST elevation myocardial infarction (NSTEMI): The patient will need a heart catheterization completed today. I have explained the risk, benefit and intent of the procedure to him. He had a previous cardiac catheterization in 2008 at [facility] so he understands the procedure and would like to proceed. I will have further recommendations following the above. History of Present Illness Attending Physician: Tata Mcgregor MD History of Present Illness This is a 61-year-old male patient with a past medical history as outlined below. He presented with chest pain and was admitted. His cardiac troponins have progressively increased consistent with a non-STEMI. An echocardiogram was obtained that showed wall motion abnormalities in the anterior and apical myocardium. The patient has a previous history of coronary artery disease and in 2008 had a cardiac catheterization completed at [facility] that showed nonobstructive disease of the LAD. He has a history of an unprovoked DVT in 2014 and is on chronic anticoagulation with Xarelto. The Xarelto was held on admission and the patient was started on heparin. He is currently chest pain- free. Past medical history: 1.Presentation to [facility] on 07/27/09 with chest discomfort. EKG was within normal limits. He was found to have elevated troponin I with peak level of 2.5 mg/mL and was treated medically initially for a NSTEMI. Patient transferred to [facility] in [place] with cardiac catheterization performed on 07/30/09, demonstrating a 50% lesion of the mid left anterior descending coronary which was found to not be hemodynamically significant by FFR. The other coronary arteries were free of angiographically significant disease. Cardiac MRI was performed with findings consistent with myopericarditis. The left ventricle was found to be moderately enlarged with mild reduction in left ventricular systolic function. The calculated ejection fraction was found to be 49%. There were findings of subepicardial scar noted in the infero apex as well as the basal anteroseptum. 2.Hypertension 3.Dyslipidemia 4.Tobacco abuse, 1/2 ppd 5.History of unprovoked right lower extremity in May 2015 with Hematologic recommendations for life long anticoagulation 6. hypothyroidism 7. GERD 8. Anterior pituitary hormone deficiency 9. Adrenal insufficiency 10. Impaired fasting glucose Allergies Allergy/AdvReac Type Severity Reaction Status Date / Time lisinopril Allergy Unknown dry cough Verified 11/06/21 23:19 Home Medications Medication Instructions Recorded Confirmed Type cholecalciferol (vitamin D3) 50 2,000 mcg PO DAILY 05/28/20 11/06/21 History mcg (2,000 unit) capsule losartan 25 mg tablet 25 mg PO DAILY 05/28/20 11/06/21 History metoprolol succinate 25 mg 25 mg PO DAILY 05/28/20 11/06/21 History tablet,extended release 24 hr rivaroxaban 10 mg tablet (Xarelto) 10 mg PO QPM 05/28/20 11/06/21 History atorvastatin 10 mg tablet 10 mg PO QAM 11/06/21 11/06/21 History levothyroxine 25 mcg tablet 25 mcg PO QAM 11/06/21 11/06/21 History omeprazole 40 mg capsule,delayed 40 mg PO QAM PRN 11/06/21 11/06/21 History release omeprazole 40 mg capsule,delayed 40 mg PO QPM 11/06/21 11/06/21 History release triamcinolone acetonide 0.1 % 1 applic MUCOUS MEMBRANE TID 11/06/21 11/06/21 History dental paste (Oralone) Patient History Medical History Family history of blood clots Hypertension Surgical History H/O vasectomy Social History Smoking Status: Current every day smoker Tobacco Type: Cigarettes Tobacco Cessation Education Requested by Patient: No Hx Alcohol Use: No Hx Substance Use: No Preferred Language: Korean Communication Ability: Effective 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 All other 10 point review of systems are negative. Physical Exam Physical Exam: General: no acute distress and stated age Head: normocephalic, no masses, lesions, tenderness or abnormalities Eyes: conjunctiva are pink and non-injected, sclera clear Neck: supple, no adenopathy, no bruits, normal jugular venous pulse, no hepatojugular reflux Chest: normal shape and normal respiratory effort Lungs: clear to auscultation and percussion Cardiac Exam: - regular rate & rhythm, no murmurs gallops or rubs - normal S1, normal S2 Pulses: 2(+) throughout Abdomen: abdomen soft, non-tender, no abnormal masses and no hepatosplenomegaly Musculoskeletal: no gait disturbance, no joint inflammation, no deforming arthritis Extremities: no edema and no cyanosis Neuro: grossly normal exam Results & Data ([facility]) Vital Signs (Past 12 Hours) Vital Signs Temp Pulse Pulse Resp BP Pulse Ox 11/07/21 07:35 36.6 C 54 L 20 93/58 L 95 11/07/21 03:04 53 L 11/07/21 02:27 36.4 C L 53 L 109/72 94 11/07/21 01:00 57 L 16 118/72 96 11/06/21 23:22 54 L 18 121/77 97 11/06/21 21:45 96 11/06/21 21:22 36.7 C 66 16 128/88 96 Laboratory Results Laboratory Results - last 24 hr 11/06/21 11/06/21 11/06/21 21:50 21:50 21:50 WBC 6.58 RBC 4.97 Hgb 15.7 Hct 45.3 MCV 91.1 MCH 31.6 MCHC 34.7 RDW Std Deviation 47.1 H RDW Coeff of Dane 14.0 Plt Count 203 MPV 11.5 H Immature Gran % (Auto) 0.0 Neut % (Auto) 48.8 Lymph % (Auto) 37.1 [place] % (Auto) 9.4 Eos % (Auto) 4.1 Baso % (Auto) 0.6 Neut # (Auto) 3.21 Lymph # (Auto) 2.44 [place] # (Auto) 0.62 H Eos # (Auto) 0.27 Baso # (Auto) 0.04 Immature Gran # (Auto) 0.00 PT INR APTT PTT Ratio Sodium 138 Potassium 3.5 Chloride 102 Carbon Dioxide 29 Anion Gap 7 BUN 16 Creatinine 1.05 Est Cr Clr Drug Dosing 91.1 Est GFR ( Amer) 88.4 Est GFR (Non-Af Amer) 76.2 BUN/Creatinine Ratio 15.2 Glucose 104 H Estimat Average Glucose 120 Hemoglobin A1c 5.8 H Calcium 9.5 Total Bilirubin 0.8 AST 18 ALT 14 Alkaline Phosphatase 52 Troponin I 0.14 H* Total Protein 7.3 Albumin 4.4 Globulin 2.9 Albumin/Globulin Ratio 1.5 Triglycerides Cholesterol LDL Cholesterol, Calc VLDL Cholesterol, Calc HDL Cholesterol Cholesterol/HDL Ratio Lipase 22 TSH SARS-CoV-2, RNA, NAAT 11/06/21 11/06/21 11/06/21 21:50 22:49 23:05 WBC RBC Hgb Hct MCV MCH MCHC RDW Std Deviation RDW Coeff of Dane Plt Count MPV Immature Gran % (Auto) Neut % (Auto) Lymph % (Auto) [place] % (Auto) Eos % (Auto) Baso % (Auto) Neut # (Auto) Lymph # (Auto) [place] # (Auto) Eos # (Auto) Baso # (Auto) Immature Gran # (Auto) PT 11.1 INR 1.0 APTT 29.5 PTT Ratio 1.1 Sodium Potassium Chloride Carbon Dioxide Anion Gap BUN Creatinine Est Cr Clr Drug Dosing Est GFR ( Amer) Est GFR (Non-Af Amer) BUN/Creatinine Ratio Glucose Estimat Average Glucose Hemoglobin A1c Calcium Total Bilirubin AST ALT Alkaline Phosphatase Troponin I Total Protein Albumin Globulin Albumin/Globulin Ratio Triglycerides Cholesterol LDL Cholesterol, Calc VLDL Cholesterol, Calc HDL Cholesterol Cholesterol/HDL Ratio Lipase TSH 4.484 SARS-CoV-2, RNA, NAAT NEGATIVE 11/07/21 11/07/21 11/07/21 01:00 05:53 05:53 WBC 6.19 RBC 4.68 L Hgb 14.6 Hct 42.2 MCV 90.2 MCH 31.2 MCHC 34.6 RDW Std Deviation 46.5 H RDW Coeff of Dane 14.2 Plt Count 191 MPV 11.8 H Immature Gran % (Auto) 0.2 Neut % (Auto) 45.1 Lymph % (Auto) 40.7 [place] % (Auto) 8.7 Eos % (Auto) 4.7 Baso % (Auto) 0.6 Neut # (Auto) 2.79 Lymph # (Auto) 2.52 [place] # (Auto) 0.54 Eos # (Auto) 0.29 Baso # (Auto) 0.04 Immature Gran # (Auto) 0.01 PT INR APTT > 139.0 H* PTT Ratio > 5.1 Sodium Potassium Chloride Carbon Dioxide Anion Gap BUN Creatinine Est Cr Clr Drug Dosing Est GFR ( Amer) Est GFR (Non-Af Amer) BUN/Creatinine Ratio Glucose Estimat Average Glucose Hemoglobin A1c Calcium Total Bilirubin AST ALT Alkaline Phosphatase Troponin I 4.72 H* Total Protein Albumin Globulin Albumin/Globulin Ratio Triglycerides Cholesterol LDL Cholesterol, Calc VLDL Cholesterol, Calc HDL Cholesterol Cholesterol/HDL Ratio Lipase TSH SARS-CoV-2, RNA, NAAT 11/07/21 11/07/21 05:53 08:33 WBC RBC Hgb Hct MCV MCH MCHC RDW Std Deviation RDW Coeff of Dane Plt Count MPV Immature Gran % (Auto) Neut % (Auto) Lymph % (Auto) [place] % (Auto) Eos % (Auto) Baso % (Auto) Neut # (Auto) Lymph # (Auto) [place] # (Auto) Eos # (Auto) Baso # (Auto) Immature Gran # (Auto) PT INR APTT 64.5 H* PTT Ratio 2.3 Sodium 138 Potassium 3.9 Chloride 106 Carbon Dioxide 25 Anion Gap 7 BUN 16 Creatinine 0.92 Est Cr Clr Drug Dosing 95.3 Est GFR ( Amer) 103.7 Est GFR (Non-Af Amer) 89.5 BUN/Creatinine Ratio 17.4 Glucose 95 Estimat Average Glucose Hemoglobin A1c Calcium 8.1 L Total Bilirubin AST ALT Alkaline Phosphatase Troponin I 9.90 H* Total Protein Albumin Globulin Albumin/Globulin Ratio Triglycerides 93 Cholesterol 173 LDL Cholesterol, Calc 112 VLDL Cholesterol, Calc 19 HDL Cholesterol 42 Cholesterol/HDL Ratio 4.1 Lipase TSH SARS-CoV-2, RNA, NAAT Medications Administered Current Inpatient Medications Acetaminophen (Acetaminophen 325 Mg Tab) 650 mg PO Q4H PRN PRN Reason: Pain or Fever Stop: 12/07/21 02:43 Aspirin (Aspirin 81 Mg Ectab) 81 mg PO [facility] Stop: 12/07/21 08:59 Atorvastatin Calcium (Atorvastatin 10 Mg Tab) 10 mg PO QAM [facility] Stop: 12/07/21 08:59 Heparin Sodium/Dextrose (Heparin Sodium/Dextrose) 25,000 units in 500 mls @ 31 mls/hr IV .Q16H8M [facility]; Protocol Stop: 12/06/21 23:14 Last Titration: 11/07/21 07:15 Dose: 1,550 units/hr, 31 mls/hr Documented by: Lactated Ringer's (Lr) 1,000 mls @ 60 mls/hr IV .[id number] [facility] Stop: 12/07/21 00:59 Last Admin: 11/07/21 01:33 Dose: 60 mls/hr Documented by: Promethazine HCl 12.5 mg/ (Sodium Chloride) 50.5 mls @ 202 mls/hr IV Q6H PRN PRN Reason: Nausea And Vomiting Stop: 12/07/21 02:43 Levothyroxine Sodium (Levothyroxine Sodium 25 Mcg Tablet) 25 mcg PO DAILYBB [facility] Stop: 12/07/21 06:29 Last Admin: 11/07/21 05:36 Dose: 25 mcg Documented by: Lorazepam (Lorazepam 2 Mg/1 Ml Vial) 0.5 mg IV Q4H PRN PRN Reason: Anxiety Stop: 12/07/21 02:43 Losartan Potassium (Losartan Potassium 25 Mg Tab) 25 mg PO DAILY [facility] Stop: 12/07/21 08:59 Metoprolol Succinate (Metoprolol Succ 25mg Ext Rel Tab) 25 mg PO DAILY [facility] Stop: 12/07/21 08:59 Morphine Sulfate (Morphine Sulfate 4 Mg/Ml 1 Ml Carp\Vial) 4 mg IV Q4H PRN PRN Reason: Pain Stop: 11/21/21 02:43 Nitroglycerin (Nitroglycerin Sl 0.4 Mg/Tab Tab) 0.4 mg SL UD PRN PRN Reason: Chest Pain Stop: 12/07/21 02:43 Pantoprazole Sodium (Pantoprazole 40 Mg Tab) 40 mg PO HS [facility] Stop: 12/07/21 20:59 Tramadol HCl (Tramadol Hcl 50 Mg Tablet) 25 - 50 mg PO Q4H PRN PRN Reason: Pain Stop: 12/07/21 02:43
--- NOTE | 2021-11-07 08:46 | Electrocardiogram Report ---
Test Reason : Blood Pressure : / mmHG Vent. Rate : 052 BPM Atrial Rate : 052 BPM P-R Int : 200 ms QRS Dur : 098 ms QT Int : 484 ms P-R-T Axes : 015 005 116 degrees QTc Int : 450 ms Sinus bradycardia T-wave inversion in Anterior leads , consider ischemia Abnormal ECG When compared with ECG of 06-NOV-2021 22:30, Inverted T waves have replaced nonspecific T wave abnormality in Anterior leads ST depression in Anterior leads no longer present Confirmed by Ralph Javier ([id number]) on 11/07/2021 8:45:50 AM Referred By: REFERRED SELF Confirmed By:Ralph Javier
[2021-11-07] MEDS ORDERED: MIDAZOLAM HCL 1 MG/ML 2ML VIAL ONE (08:47)
[2021-11-07] MEDS ORDERED: HEPARIN (PORCINE) 1000 UNIT/ML 10 ML (CATH LAB USE ONLY) ONE (08:47)
[2021-11-07] MEDS ORDERED: fentaNYL citrate 100 MCG/2 ML VIAL ONE (08:47)
[2021-11-07] MEDS ORDERED: niCARdipine HCL INJ 2.5 MG/ML 10 ML AMP ONE (08:47)
[2021-11-07] MEDS ORDERED: NITROGLYCERIN/D5W 100MCG/ML 20ML SYR ONE (08:48)
[2021-11-07] MEDS ORDERED: LIDOCAINE 1% LOCAL 20 ML VIAL ONE (08:49)
[2021-11-07 09:07] LABS: Partial Thromboplastin Ratio 2.3
[2021-11-07 09:16] LABS: Partial Thromboplastin Time 64.5 Seconds (21.0-31.0)
--- NOTE | 2021-11-07 09:53 | Cardiac Catheterization ---
Date of Service November 07, 2021 Cardiac Cath Report Cardiac Cath Report Procedure: 1. Coronary angiography 2. Left ventriculogram 3. Left heart catheterization History: This is a 61-year-old male patient who presented with a non-STEMI Procedure summary: After informed consent was obtained patient was taken to the cardiac catheterization lab and prepped and draped in the usual manner. A right transradial approach was performed. 5 Japanese diagnostic catheters were utilized for the coronary angiograms. A 5 Japanese pigtail catheter was utilized for left heart pressures and the left ventriculogram. Following the procedure the patient underwent coronary intervention. ACC data: Start time 9:14 AM End time 9:25 AM Opening aortic pressure 101/69 Closing aortic pressure 97/63 LV pressure 102/16 Sedation 1 mg intravenous Versed IV fluid 60 cc normal saline Contrast 108 cc Optiray Fluoroscopy time 3.4 minutes Radiation 856 mGy DAP 70.10 Gy/cm Right dominant system AUC score 9 Coronary angiography: Selective injections of the left coronary artery revealed the left main trunk to be widely patent. The left circumflex artery consists principally of a large lateral marginal branch supplying most of the posterior lateral wall. The left circumflex is widely patent. The LAD has an ulcerated mid high-grade stenosis just after the takeoff of the first septal supreme court justice. There is a large diagonal branch with a suspected high-grade stenosis at the bifurcation. The remainder the LAD and diagonal were widely patent. Injections of the right coronary artery revealed to be large and dominant. The right coronary artery is widely patent. Left ventriculogram: The left ventricle is of normal size. There is hypokinesis of the anterior and apical myocardium. The estimated left ventricular ejection fraction is around 45%. Summary: The patient has a high-grade ulcerated stenosis of the mid LAD as well as the bifurcation with a large diagonal branch. The remainder the coronary anatomy is widely patent. The LV has hypokinesis of the LAD distribution. Recommendations: The recommendations are for coronary intervention on the LAD.
--- NOTE | 2021-11-07 09:53 | Pre Anesthesia Assessment ---
Date of Service November 07, 2021 Pre Sedation Assessment Vital Signs Temp Pulse Pulse Resp BP Pulse Ox 11/07/21 07:35 36.6 C 54 L 20 93/58 L 95 11/07/21 03:04 53 L 11/07/21 02:27 36.4 C L 53 L 109/72 94 11/07/21 01:00 57 L 16 118/72 96 11/06/21 23:22 54 L 18 121/77 97 11/06/21 21:45 96 11/06/21 21:22 36.7 C 66 16 128/88 96 Pre-Sedation Airway Assessment Smoking Status: Current every day smoker Notes The planned sedation has been discussed with the patient. Informed Consent was obtained. I have identified the patient, determined the appropriateness of sedation and have assessed the patient immediately prior to the procedure. All medicine(s) and interventions are by my order.
[2021-11-07] MEDS ORDERED: EPTIFIBATIDE 2 MG/ML 10 ML VIAL (CATH LAB USE ONLY) IV ONE (09:59)
[2021-11-07] MEDS ORDERED: TICAGRELOR 90 MG TAB PO ONE (10:16)
[2021-11-07] MEDS ORDERED: ASPIRIN 81 MG CHEW ONE (10:18)
--- NOTE | 2021-11-07 10:49 | Cardiac Catheterization ---
Cardiac Cath Procedure Full Procedure Date November 07, 2021 Pre-Procedure Diagnosis Pre-Procedure Diagnosis: Non STEMI AUC Score AUC Score: 08 Post-Procedure Diagnosis Post-Procedure Diagnosis: Severe CAD Procedure(s) Performed Procedure(s) Performed: Drug Eluting Stent (mid to distal LAD (2.75x33 mm)) Environmental Protection Inspector Christiano Pretty MD, PhD Estimated Blood Loss Estimated Blood Loss: <20ml Medication(s) Medication(s): Aspirin, Clopidogrel (Ticagrelor 180 mg), Fentanyl, Heparin and Integrilin Summary of Findings Patient was previously prepped and draped in a sterile fashion for the diagnostic catheterization. This was performed by Dr. Roge Tamayo. I was asked to intervene upon the patient's LAD. At the time of my arrival, patient had an indwelling right radial artery glide sheath of 6 Bulgarian. He had received IV heparin for the diagnostic cath. An ACT was checked and additional IV heparin was provided. He had not received dual antiplatelet therapy today. Therefore, after initial PTCA patient was provided Integrilin as a double bolus administration. Additional IV heparin was provided as needed to maintain therapeutic ACT. A 6 Bulgarian EBU 3.5 guide catheter was used to engage the left main coronary artery. Through this, a BMW universal guidewire was advanced and positioned distally in the LAD. Predilatation of the mid and early distal LAD stenosis was performed using a 2.5 x 15 mm trek PTCA balloon with multiple inflations up to 14 joshua. This balloon was then removed. A 2.75 x 33 mm guide point drug-eluting stent was then advanced over the wire and positioned across both lesions spanning from just distal to the first D1 into the early portion of the distal LAD. This was then deployed initially using 12 joshua of pressure. The balloon was deflated and angiography performed. We then postdilated the mid and proximal stent using a 3.0 x 9 mm noncompliant balloon and multiple inflations with 15 ojshua used proximally and 12 joshua used in the mid segment. This balloon was then removed. The guidewire was removed and final angiographic evaluation was performed in orthogonal views. The guide catheter was removed over the J-wire. The radial artery sheath was then removed and hemostasis was obtained using a TR band. At this point, patient then received his Brilinta dose and his aspirin 81 mg. He remained hemo dynamically stable and asymptomatic. This end of the case. Findings: PCI of the LAD-there is 0% residual stenosis in the LAD post PCI ABBI-3 flow post PCI (ABBI II pre-PCI) No evidence of dissection or perforation post PCI Ostium of the second diagonal branch is jailed from plaque shift and stent position. However, there is ABBI-3 flow in the sidebranch. There is a stepdown at the distal stent edge which is relatively small. Hemodynamics Rest Ao:: 107/70 mmHg, mean 85 mmHg Final Ao: Not recorded LV: Recorded in diagnostic procedure Recommendations Recommendations: PCI without planned CABG (Dual antiplatelet therapy with aspirin 81 mg daily and ticagrelor 90 mg p.o. twice daily. GDMT with high intensity statin therapy, beta-sherita, plus or minus AARON inhibitor/ARB.) Radiation Exposure (mGy) 2595 Contrast (mls) 244 Anesthesia Fentanyl Procedural Complication(s) None Disposition Recovery Room\PACU I attest to the content of the Intraoperative Record and any orders documented therein. Any exceptions are noted below. 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 twice daily. GDMT with high intensity statin therapy, beta-sherita, plus or minus AARON inhibitor/ARB.) PCI Indication: PCI for high risk Non-AYAD Lesion Segment Name: Mid and distal LAD Culprit Artery: Yes Stenosis Prior to Rx (%): 95% plus Pre-Procedure ABBI Flow: 2 Previously Treated Lesion: No Lesion Complexity: Non-High/Non-C Lesion Length (mm): 28 Thrombus Present: Yes (Small amount) Bifurcation Lesion: Yes Guidewire Across Lesion: Yes Intraprocedure Events Significant Disection: No Perforation: No
[2021-11-07] MEDS: ASPIRIN 81 MG ECTAB PO SCH (11:20)
[2021-11-07] MEDS: METOPROLOL SUCC 25MG EXT REL TAB PO SCH (11:22)
[2021-11-07] MEDS: LOSARTAN POTASSIUM 25 MG TAB PO SCH (11:28)
[2021-11-07] MEDS: ATORVASTATIN 10 MG TAB PO SCH (11:28)
--- NOTE | 2021-11-07 13:16 | Hospitalist Progress Note ---
Date of Service November 07, 2021 Assessment & Plan (1) Acute non-ST elevation myocardial infarction (NSTEMI): Plan: NSTEMI -s/p cath today with stent to LAD -continue aspirin, brilinta, BB -TTE results noted, EF 40-45%, LV anterior and inferior wall akinesis, mild MR Plan: History of DVT -Was on xarelto, on hold currently. Will obtain LE u/s to evaluate for any residual disease. HTN -losartan 25mg daily, Toprol 25mg daily with hold parameters History of micropituitarism -OP follow up Hypothyroidism -synthroid HLD -statin Admission and Anticipated Discharge Date Admission Date: November 07, 2021 Subjective Went for cardiac cath today Feels well, anxious to go home No chest pain or shortness of breath currently Physical Exam Physical Exam: No acute distress, pleasant and comfortable Respiratory: Breathing comfortably on room air, no wheezing/rhonchi/rales Cardiovascular: regular rate and rhythm, no murmurs/rubs/gallops Gastrointestinal (Abdomen): soft Musculoskeletal: right wrist with no bruising, no bleeding Neurologic: awake, alert, spontaneously moving extremities Results & Data Results & Data ([facility]) Vital Signs (Past 12 Hours) Vital Signs Temp Pulse Pulse Resp BP Pulse Ox 11/07/21 10:44 58 L 17 119/83 95 11/07/21 10:42 36.5 C 56 L 20 116/73 11/07/21 10:30 60 17 122/82 95 11/07/21 07:35 36.6 C 54 L 20 93/58 L 95 11/07/21 03:04 53 L 11/07/21 02:27 36.4 C L 53 L 109/72 94 Laboratory Results Short CBC 11/06/21 11/07/21 Range/Units 21:50 05:53 WBC 6.58 6.19 (4.8-10.8) K/uL Hgb 15.7 14.6 (14.0-18.0) g/dL Hct 45.3 42.2 (42-52) % Plt Count 203 191 (130-400) K/uL BMP 11/06/21 11/07/21 21:50 05:53 Sodium 138 138 Potassium 3.5 3.9 Chloride 102 106 Carbon Dioxide 29 25 BUN 16 16 Creatinine 1.05 0.92 Glucose 104 H 95 Calcium 9.5 8.1 L Cardiac Enzymes 11/06/21 11/07/21 11/07/21 Range/Units 21:50 01:00 05:53 Troponin I 0.14 H* 4.72 H* 9.90 H* (0-0.04) ng/ml Liver Function 11/06/21 Range/Units 21:50 Total Bilirubin 0.8 (0.2-1.0) mg/dl AST 18 (13-39) U/L ALT 14 (7-52) U/L Alkaline Phosphatase 52 (34-104) U/L Albumin 4.4 (3.4-5.0) gm/dl Medications Administered Current Inpatient Medications Acetaminophen (Acetaminophen 325 Mg Tab) 650 mg PO Q4H PRN PRN Reason: Pain or Fever Stop: 12/07/21 02:43 Aspirin (Aspirin 81 Mg Ectab) 81 mg PO [facility] Stop: 12/07/21 08:59 Last Admin: 11/07/21 11:20 Dose: Not Given Documented by: Atorvastatin Calcium (Atorvastatin 10 Mg Tab) 10 mg PO [facility] Stop: 12/07/21 08:59 Last Admin: 11/07/21 11:28 Dose: 10 mg Documented by: Fluticasone Propionate (Fluticasone Propionate Na Spr 16 Gm Btl) 1 sprays NA B ID [facility] Stop: 12/07/21 20:59 Heparin Sodium/Dextrose (Heparin Sodium/Dextrose) 25,000 units in 500 mls @ 0 mls/hr IV .Q0M [facility]; Protocol Stop: 12/06/21 23:14 Last Titration: 11/07/21 07:30 Dose: 0 units/hr, 0 mls/hr Documented by: Promethazine HCl 12.5 mg/ (Sodium Chloride) 50.5 mls @ 202 mls/hr IV Q6H PRN PRN Reason: Nausea And Vomiting Stop: 12/07/21 02:43 Levothyroxine Sodium (Levothyroxine Sodium 25 Mcg Tablet) [facility]: 12/07/21 06:29 Last Admin: 11/07/21 05:36 Dose: 25 mcg Documented by: Lorazepam (Lorazepam 2 Mg/1 Ml Vial) 0.5 mg IV Q4H PRN PRN Reason: Anxiety Stop: 12/07/21 02:43 Losartan Potassium (Losartan Potassium 25 Mg Tab) 25 mg PO DAILY [facility] Stop: 12/07/21 08:59 Last Admin: 11/07/21 11:28 Dose: 25 mg Documented by: Metoprolol Succinate (Metoprolol Succ 25mg Ext Rel Tab) 25 mg PO DAILY [facility] Stop: 12/07/21 08:59 Last Admin: 11/07/21 11:22 Dose: Not Given Documented by: Morphine Sulfate (Morphine Sulfate 4 Mg/Ml 1 Ml Carp\Vial) 4 mg IV Q4H PRN PRN Reason: Pain Stop: 11/21/21 02:43 Nitroglycerin (Nitroglycerin Sl 0.4 Mg/Tab Tab) 0.4 mg SL UD PRN PRN Reason: Chest Pain Stop: 12/07/21 02:43 Pantoprazole Sodium (Pantoprazole 40 Mg Tab) 40 mg PO HS [facility] Stop: 12/07/21 20:59 Ticagrelor (Ticagrelor 90 Mg Tab) 90 mg PO BID [facility] Stop: 12/07/21 20:59 Tramadol HCl (Tramadol Hcl 50 Mg Tablet) 25 - 50 mg PO Q4H PRN PRN Reason: Pain Stop: 12/07/21 02:43
--- NOTE | 2021-11-07 15:41 | Electrocardiogram Report ---
Test Reason : Blood Pressure : / mmHG Vent. Rate : 056 BPM Atrial Rate : 056 BPM P-R Int : 204 ms QRS Dur : 096 ms QT Int : 482 ms P-R-T Axes : 014 017 126 degrees QTc Int : 465 ms Sinus bradycardia Prolonged QT Abnormal ECG When compared with ECG of 07-NOV-2021 01:51, No significant change was found Confirmed by Ralph Javier ([id number] on 11/07/2021 3:41:18 PM Referred By: REFERRED SELF Confirmed By:Ralph Javier
--- NOTE | 2021-11-07 16:58 | Ultrasound Report ---
US venous doppler LE BI CLINICAL HISTORY: evaluate for DVT COMPARISON: None available at the time of this dictation. TECHNIQUE: Right lower extremity real-time compression venous ultrasound with Color Doppler imaging. Utilizing real-time ultrasonic imaging multiple real time high-resolution ultrasonic images with comp ression and noncompression maneuvers of the deep venous system in addition to color doppler imaging w ere performed from the common femoral vein through the proximal calf veins. FINDINGS: Currently there is normal compressibility of the deep venous system from the common femoral vein thro ugh the proximal calf veins. No current evidence of acute thrombosis is identified. Very slow flow is seen bilaterally. Impression: No evidence of deep venous thrombus. ACT 112: Negative or not required by law. Electronically signed by: Anand Angel M.D. 11/07/2021 4:56 PM
[2021-11-07] MEDS: FLUTICASONE PROPIONATE NA SPR 16 GM BTL SCH (20:18)
[2021-11-07] MEDS ORDERED: PANTOprazole 40 MG TAB PO SCH (21:00)
[2021-11-07] MEDS: TICAGRELOR 90 MG TAB PO SCH (21:27)
[2021-11-07] MEDS ORDERED: MELATONIN 3 MG TAB PO PRN (22:01)
[2021-11-08] MEDS: LEVOTHYROXINE SODIUM 25 MCG TABLET PO SCH (06:10)
[2021-11-08] MEDS: FLUTICASONE PROPIONATE NA SPR 16 GM BTL SCH (07:39)
[2021-11-08] MEDS: METOPROLOL SUCC 25MG EXT REL TAB PO SCH (07:40)
[2021-11-08] MEDS: ASPIRIN 81 MG ECTAB PO SCH (07:40)
[2021-11-08] MEDS: LOSARTAN POTASSIUM 25 MG TAB PO SCH (07:40)
[2021-11-08] MEDS: TICAGRELOR 90 MG TAB PO SCH (07:41)
[2021-11-08] MEDS: ATORVASTATIN 10 MG TAB PO SCH (07:41)
[2021-11-08 07:58] LABS: Hematocrit (blood only) 43.2 % (42-52); Hemoglobin 14.8 g/dL (14.0-18.0); Mean Corpuscular Hemoglobin 31.1 pg (25-34); Mean Corpuscular Hgb Conc 34.3 g/dL (32-36); Mean Corpuscular Volume 90.8 fL (80-100); Mean Platelet Volume 11.4 fL (7.4-10.4); Platelet Count 183 K/uL (130-400); RDW Standard Deviation 46.4 fL (36.4-46.3); Red Blood Count 4.76 M/uL (4.7-6.1); White Blood Count 6.35 K/uL (4.8-10.8)
[2021-11-08 09:11] LABS: BUN Creatinine Ratio 17.5 (10-20); Calcium 8.4 mg/dl (8.5-10.1); Creatinine Clr Calc Pharmacy 97.8 ml/min; Est GFR (African American) 97.3 ml/min; Est GFR (Non-African American) 83.9 ml/min; Potassium 3.6 mmol/L (3.5-5.1)
--- NOTE | 2021-11-08 10:17 | Cardiology Progress Note ---
Date of Service November 08, 2021 Assessment & Plan (1) Acute non-ST elevation myocardial infarction (NSTEMI): Plan: The patient will return home on dual antiplatelet therapy. I think the risk versus benefit of him continuing Xarelto would favor stopping this medication while he is on dual antiplatelet therapy. He has a remote history of a one-time DVT which was unprovoked and it was felt that he should be on lifelong anticoagulation. He has had no additional events and I think it is reasonable to stop the Xarelto and continue with dual antiplatelet therapy instead of taking the risk of triple therapy and bleeding. He can be discharged home today. I will arrange follow-up. Admission and Anticipated Discharge Date Admission Date: November 07, 2021 Subjective The patient had an uneventful night. Review of Systems Review of Systems: Review of Systems: See HPI for pertinent positives. All other 10 point review of systems are negative. Physical Exam Physical Exam: General: no acute distress and stated age Head: normocephalic, no masses, lesions, tenderness or abnormalities Eyes: conjunctiva are pink and non-injected, sclera clear Neck: supple, no adenopathy, no bruits, normal jugular venous pulse, no hepatojugular reflux Chest: normal shape and normal respiratory effort Lungs: clear to auscultation and percussion Cardiac Exam: - regular rate & rhythm, no murmurs gallops or rubs - normal S1, normal S2 Pulses: 2(+) throughout Abdomen: abdomen soft, non-tender, no abnormal masses and no hepatosplenomegaly Musculoskeletal: no gait disturbance, no joint inflammation, no deforming arthritis Extremities: no edema and no cyanosis Neuro: grossly normal exam Results & Data ([facility]) Vital Signs (Past 12 Hours) Vital Signs Temp Pulse Pulse Resp BP Pulse Ox 11/08/21 07:31 36.8 C 58 L 16 101/68 96 11/08/21 03:41 36.6 C 95 H 18 86/50 L 93 11/07/21 23:40 36.6 C 61 18 87/56 L 95 11/07/21 23:01 61 Laboratory Results Laboratory Results - last 24 hr 11/07/21 11/07/21 11/07/21 09:50 10:06 11:16 WBC RBC Hgb Hct MCV MCH MCHC RDW Std Deviation RDW Coeff of Dane Plt Count MPV Activ Coag Time Kaolin 190 H 422 H Sodium Potassium Chloride Carbon Dioxide Anion Gap BUN Creatinine Est Cr Clr Drug Dosing Est GFR ( Amer) Est GFR (Non-Af Amer) BUN/Creatinine Ratio Glucose POC Glucose 97 Calcium 11/08/21 11/08/21 07:29 07:29 WBC 6.35 RBC 4.76 Hgb 14.8 Hct 43.2 MCV 90.8 MCH 31.1 MCHC 34.3 RDW Std Deviation 46.4 H RDW Coeff of Dane 14.0 Plt Count 183 MPV 11.4 H Activ Coag Time Kaolin Sodium 136 Potassium 3.6 Chloride 106 Carbon Dioxide 23 Anion Gap 7 BUN 17 Creatinine 0.97 Est Cr Clr Drug Dosing 97.8 Est GFR ( Amer) 97.3 Est GFR (Non-Af Amer) 83.9 BUN/Creatinine Ratio 17.5 Glucose 104 H POC Glucose Calcium 8.4 L Medications Administered Current Inpatient Medications Acetaminophen (Acetaminophen 325 Mg Tab) 650 mg PO Q4H PRN PRN Reason: Pain or Fever Stop: 12/07/21 02:43 Aspirin (Aspirin 81 Mg Ectab) 81 mg PO [facility] Stop: 12/07/21 08:59 Last Admin: 11/08/21 07:40 Dose: 81 mg Documented by: Atorvastatin Calcium (Atorvastatin 10 Mg Tab) 10 mg PO [facility] Stop: 12/07/21 08:59 Last Admin: 11/08/21 07:41 Dose: 10 mg Documented by: Fluticasone Propionate (Fluticasone Propionate Na Spr 16 Gm Btl) 1 sprays NA BID [facility] Stop: 12/07/21 20:59 Last Admin: 11/08/21 07:39 Dose: 1 sprays Documented by: Promethazine HCl 12.5 mg/ (Sodium Chloride) 50.5 mls @ 202 mls/hr IV Q6H PRN PRN Reason: Nausea And Vomiting Stop: 12/07/21 02:43 Levothyroxine Sodium (Levothyroxine Sodium 25 Mcg Tablet) [facility] Stop: 12/07/21 06:29 Last Admin: 11/08/21 06:10 Dose: 25 mcg Documented by: Lorazepam (Lorazepam 2 Mg/1 Ml Vial) 0.5 mg IV Q4H PRN PRN Reason: Anxiety Stop: 12/07/21 02:43 Losartan Potassium (Losartan Potassium 25 Mg Tab) 25 mg PO DAILY [facility] Stop: 12/07/21 08:59 Last Admin: 11/08/21 07:40 Dose: 25 mg Documented by: Melatonin (Melatonin 3 Mg Tab) 3 mg PO HS PRN PRN Reason: Sleep Stop: 12/07/21 22:00 Last Admin: 11/07/21 22:27 Dose: 3 mg Documented by: Metoprolol Succinate (Metoprolol Succ 25mg Ext Rel Tab) 25 mg PO DAILY [facility] Stop: 12/07/21 08:59 Last Admin: 11/08/21 07:40 Dose: 25 mg Documented by: Morphine Sulfate (Morphine Sulfate 4 Mg/Ml 1 Ml Carp\Vial) 4 mg IV Q4H PRN PRN Reason: Pain Stop: 11/21/21 02:43 Nitroglycerin (Nitroglycerin Sl 0.4 Mg/Tab Tab) 0.4 mg SL UD PRN PRN Reason: Chest Pain Stop: 12/07/21 02:43 Pantoprazole Sodium (Pantoprazole 40 Mg Tab) 40 mg PO HS [facility] Stop: 12/07/21 20:59 Last Admin: 11/07/21 20:18 Dose: 40 mg Documented by: Ticagrelor (Ticagrelor 90 Mg Tab) 90 mg PO BID [facility] Stop: 12/07/21 20:59 Last Admin: 11/08/21 07:41 Dose: 90 mg Documented by: Tramadol HCl (Tramadol Hcl 50 Mg Tablet) 25 - 50 mg PO Q4H PRN PRN Reason: Pain Stop: 12/07/21 02:43
--- NOTE | 2021-11-08 11:33 | Discharge Summary ---
Date of Service November 08, 2021 Admission HPI Per Admitting Provider History obtained from patient and records. Medical history significant for nonocclusive CAD, history of myopericarditis, PVD, hypertension, hyperlipidemia, LE DVT on Xarelto, pituitary microadenoma/hypophysitis, hypothyroidism, prediabetes, ongoing tobacco abuse. Last confinement July 2009 for non-STEMI. Patient transferred to [facility]. Cardiac cath demonstrated 50% lesion mid LAD not found to be hemodyn amically significant. EF initially found to be 49%. In the last month, patient noted 2 episodes of achy chest discomfort noted at night with shortness of breath relieved by antacid intake. Intermittent palpitation episodes. PCP recommended outpatient cardiology evaluation. Patient seen by [facility] last week. 14-day 0 monitor recommended. Stress echo and outpatient GI referral for poss ible EGD recommended. Patient counseled to resume home aspirin intake which patient has not been compliant with for a few years. Last night after dinner, patient noted achy chest discomfort initially relieved by Tums but later on noted to be persistent and more intense with radiation to the neck/jaw and with associated diaphoresis symptoms. Some relief with ASA intake at home. Nausea/emesis symptoms at the ER. IV heparin initiated at the ER. 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 Principal Diagnosis NSTEMI Discharge Exam Appears well, pleasant and comfortable Regular rate and rhythm, no murmurs/rubs/gallops Breathing comfortably on room air, no wheezing/rhonchi/rales Right wrist is clean/dry/intact (site of cath) No leg swelling Discharge Data Allergies Allergy/AdvReac Type Severity Reaction Status Date / Time lisinopril Allergy Unknown dry cough Verified 11/06/21 23:19 Consultations 11/06/21 23:59 ED Decision to Admit Stat 11/07/21 02:44 Consult Cardiology Routine Procedures Performed Operation Date: 11/07/21 09:30 Actual Procedures s Cineradiography w/Routine Exam - Roge Tamayo, DO p Cath, Left with Cors and Vent - Roge Tamayo, DO s Drug Eluting Stent SGl Vessel - Christiano Pretty MD, PhD Ordered Studies 11/07/21 09:05 CL Cath Imgs for PACS use only Routine 11/07/21 14:01 US venous doppler LE BI Routine Hospital Course (1) Acute non-ST elevation myocardial infarction (NSTEMI): NSTEMI -s/p cath 11/07/21 with stent to LAD -placed on aspirin, brilinta. and continued on metoprolol while here -TTE results noted, EF 40-45%, LV anterior and inferior wall akinesis, mild MR -Patient will follow up with Cardiology after discharge History of DVT -distant history of DVT several years ago. Lower extremity here negative for DVT but shows flow. Patient notified of results and would recommend follow up with Vascular surgery -To avoid "triple therapy", while he is on aspirin and brilinta, will discontinue Xarelto -would consider follow up with Hematology for hypercoagulable work up HTN -continued on losartan 25mg daily and Toprol 25mg daily Total Time Total Time Spent Total Time Spent (In Minutes): 35 Discharge Plan Discharge Items Patient Disposition: Home - Self-Care Reason For Visit: NSTEMI Discharge Diagnosis: NSTEMI Condition on Discharge: Good Activity: As commented below Exercise/Sports: Wait until after follow-up appointment Driving/Machine Use: Resume 1 day after discharge Weightbearing: Full weightbearing Non-emergency contact: Primary Care Provider and Specialist Call non-emergency contact if: you have any medication questions and your symptoms worsen Follow-up/Referrals: Martita Urbina PA-C [Primary Care Provider] - Diet: Heart Healthy Addtl Attending Provider Instructions: If you have chest pain, please call your doctor or go to the nearest ER You will be discharged on aspirin and Brilinta. You can stop Xarelto. Please follow up with your primary care doctor for referral to see a Vascular Surgeon. You had an ultrasound of your legs while in the hospital which did NOT show a blood clot but did show slow blood flow. Pending Studies at Discharge: No Stand-Alone Forms: My [employer], Smoking Cessation Medications and DC Order Prescriptions: New aspirin 81 mg Tablet,Delayed Release (Dr/Ec) 81 mg PO QAM 30 Days Qty: 30 RF: 2 nitroglycerin [Nitrostat] 0.4 mg Tablet, Sublingual 0.4 mg sublingual UD PRN (Reason: chest pain) 30 Days Qty: 90 RF: 0 Brilinta 90 mg Tablet 90 mg PO BID 30 Days Qty: 60 RF: 2 Continued losartan 25 mg tablet 25 mg PO DAILY RF: 0 metoprolol succinate 25 mg tablet extended release 24 hr 25 mg PO DAILY RF: 0 cholecalciferol (vitamin D3) 50 mcg (2,000 unit) capsule 2,000 mcg PO DAILY RF: 0 atorvastatin 10 mg tablet 10 mg PO QAM RF: 0 omeprazole 40 mg capsule,delayed release(DR/EC) 40 mg PO QAM PRN (Reason: Acid Reflux) RF: 0 levothyroxine 25 mcg tablet 25 mcg PO QAM RF: 0 triamcinolone acetonide [Oralone] 0.1 % paste 1 applic mucous membrane TID RF: 0 Discontinued Xarelto 10 mg tablet 10 mg PO QPM RF: 0 omeprazole 40 mg capsule,delayed release(DR/EC) 40 mg PO QPM RF: 0 Discharge Orders: Discharge Order (Routine); Ordered 11/08/21 Ordered By: Tata Diallo/Other Patient Handouts: Heart Attack Dc, Eating Heart-Healthy Foods Admission Data Admit Date/Time: 11/07/21 00:44 Attending Provider: Tata Mcgregor Admit Provider: Cody Hernández Primary Care Provider: Martita Urbina Other Providers: Fran Olmedo ; Christiano Chou ; Reji Sandoval ; Memo Abarca ; Roge Tamayo ; Jad Casey ; Micheline Murray ; Gabriela Daugherty ; Nina Le ; Geoff Lam ; Cody Hernández
== END 2021-11-08 12:34 | disposition home or self-care (01) | DRG 247 ==
LOC: ED 21:36 → 2S 11-07 00:44

== ENCOUNTER 2023-01-18 18:13 | Inpatient (IN) ==
--- NOTE | 2023-01-18 18:33 | Emergency Department Note ---
Impression & Plan Stroke-like symptoms, Dysphagia, Borderline results on serologic testing for Lyme disease, Hypertension, Left facial numbness, Carotid stenosis, right, Arm paresthesia, left ED Provider Note NAME: LILY SILVEIRA AGE: 62 SEX: M ARRIVES VIA: Walk-In INFORMANT: Patient ED PROVIDER(S): Walter Son MD CHIEF COMPLAINT: Trouble swallowing, left facial numbness, bilateral upper and lower lip numbness, left chest and upper extremity numbness, bilateral lower extremity weakness PLAN: Disposition: Admit MEDICAL DECISION MAKING: The patient is a pleasant 62-year-old gentleman with a past medical history of CAD with history of PCI previously on Brilinta and DVT where he had been on Xarelto prior to starting Brilinta for his stent but no longer on anticoagulati on, hypertension, hyperlipidemia, GERD hypothyroidism who presents to the emergency department, accompanied by his son via walk-in for evaluation of symptoms of left facial numbness and tingling, bilateral upper and lower lip tingling and left chest and arm numbness in the setting of having milder c onstellation of the symptoms on 01/14 mostly notable by difficulty swallowing and had a negative stroke evaluation with CT of the head and CT of the head and neck. He had carotid disease that was identified which the patient reports has always been there. He denies any fevers, chills, cough, congestion, GI or symptoms. He denies any known tick bites. He reports his mother did have Parkinson's but otherwise no history of MS. he denies shortness of breath or abdominal pain. He reports feeling difficulty focusing which is different from his baseline diplopia which is chronic when he looks to the left due to chronic left lateral gaze impairment On arrival the patient is fatigued appearing but no acute distress, afebrile with blood pressure 150s/90s vital signs otherwise stable. He appears clinically dry. He has baseline impairment of left lateral gaze of his left eye that is been this way since . His son feels as though this may be worse than it usually is but the patient acknowledges that this has been this way for some time. He appears clinically dry. He has normal strength of all extremities. He subjectively reports decrease sensation of the left chest and left upper extremity and left face. Otherwise there is no overt facial droop. Uvula and tongue are midline. Speech is fluent. EKG without overt acute ischemia. CXR negative for acute cardiopulmonary pro cess. WBC 4.5, nonspecific. Hemoglobin and platelets within normal limits. Platelets within normal limits. Chemistry without metabolic acidosis. Electrolytes and LFTs without significant abnormality. High-sensitivity troponin 7.0, within normal limits. ESR 41 and CRP 1.3, nonspecific. Lipase not elevated. TSH within normal limits. UA without convincing evidence of infection. Lyme screen was equivocal for IgM antibody with Western blot pending. COVID-19 RNA, BERNARDINO test negative. CT of the head and CT of the head and neck were repeated in addition to CTA of the chest with dissection protocol. These were negative for acute findings. Given the patient's symptoms with equivocal IgM antibody screen for Lyme treatment was initiated with ceftriaxone. However, given persistent and progression of symptoms we will proceed with admission for further stroke evaluation. The patient and his son at bedside were in agreement this plan. [facility]. Triage Nursing notes reviewed and agree them. Prior/outside medical records reviewed Vital Signs: reviewed Differential diagnosis: Infection, dehydration, metabolic abnormality, hypo/hyperglycemia, electrolyte disturbance, anemia, hypoxia, cardiac sources, intracerebral event, toxicologic, neurologic, as well as other pathologies. ER treatment provided: See below. Diagnostics interpreted by me: ECG: Sinus bradycardia, first-degree AV block, 53 bpm, no ectopy, no overt ST elevation or depression, QTc 442, QRS 96. Cardiac Monitoring: An order for continuous cardiac monitoring was placed and demonstrated Sinus bradycardia, first-degree AV block, 53 bpm, no ectopy. Laboratory studies: See below Imaging studies: See below Consultation(s): [facility] for [facility]. HPI: The patient is a pleasant 62-year-old gentleman with a past medical history of CAD with history of PCI previously on Brilinta and DVT where he had been on Xarelto prior to starting Brilinta for his stent but no longer on anticoagulation, hypertension, hyperlipidemia, GERD hypothyroidism who presents to the emergency department, accompanied by his son via walk-in for evaluation of symptoms of left facial numbness and tingling, bilateral upper and lower lip tingling and left chest and arm numbness in the setting of having milder constellation of the symptoms on 5/17 mostly notable by difficulty swallowing and had a negative stroke evaluation with CT of the head and CT of the head and neck. He had carotid disease that was identified which the patient reports has always been there. He denies any fevers, chills, cough, congestion, GI or symptoms. He denies any known tick bites. He reports his mother did have Parkinson's but otherwise no history of MS. he denies shortness of breath or abdominal pain. He reports feeling difficulty focusing which is different from his baseline diplopia which is chronic when he looks to the left due to chronic left lateral gaze impairment ROS: See above HPI for pertinent positives & negatives. A total of 10 systems reviewed and were otherwise negative. VITALS:See Below PHYSICAL EXAMINATION: GENERAL: Awake, alert, fatigued-appearing, in no distress HENT: Normocephalic, atraumatic. Oropharynx with dry mucous membranes and otherwise unremarkable. EYES: Normal conjunctiva. Sclera non-icteric. NECK: Supple. No nuchal rigidity. FROM. No JVD. RESPIRATORY: Clear to auscultation. CARDIAC: Regular rate, normal rhythm. Extremities warm and well perfused. Pulses equal. ABDOMEN: Soft, non-distended. No tenderness to palpation. No rebound or guarding. No masses. RECTAL: Deferred. MUSCULOSKELETAL: Chest examination reveals no tenderness. The back is symmetrical on inspection without obvious abnormality. There is no CVA tenderness to palpation. No joint edema. LOWER EXTREMITIES: Calves are equal size bilaterally and non-tender. No edema. No discoloration. NEURO: Baseline impairment of left lateral gaze of his left eye that is been this way since . His son feels as though this may be worse than it usually is but the patient acknowledges that this has been this way for some time. He appears clinically dry. He has normal strength of all extremities. He subjectively reports decrease sensation of the left chest and left upper extremity and left face. Otherwise there is no overt facial droop. Uvula and tongue are midline. Speech is fluent. SKIN: No rash or jaundice noted. Walter Son MD Past Med/Surg History Medical History Acute non-ST elevation myocardial infarction (NSTEMI) Family history of blood clots Hypertension Surgical History H/O vasectomy Social History Smoking Status: Current every day smoker Tobacco Type: Cigarettes Hx Alcohol Use: Yes Alcohol type: beer Hx Substance Use: No Preferred Language: Hebrew Communication Ability: Effective Electromechanical Assembler Required: No Beliefs That Will Affect Care: None marital status: Current Living Situation: Alone How many Children do You have: 4 Feels Safe at Home: Yes Safety Concerns: Feels Safe At This Time Assistive Devices: Glasses Allergies Allergies Allergy/AdvReac Type Severity Reaction Status Date / Time lisinopril Allergy Unknown dry cough Verified 01/14/23 22:43 doxycycline Allergy Hives Verified 01/14/23 22:44 Home Meds Home Medications Medication Instructions Recorded Confirmed losartan 25 mg tablet 25 mg PO DAILY 05/28/20 01/14/23 metoprolol succinate 25 mg 25 mg PO DAILY 05/28/20 01/14/23 tablet,extended release 24 hr levothyroxine 25 mcg tablet 25 mcg PO QAM 11/06/21 01/14/23 atorvastatin 40 mg tablet 40 mg PO QAM 01/14/23 01/14/23 cholecalciferol (vitamin D3) 50 50 mcg PO QAM 01/14/23 01/14/23 mcg (2,000 unit) capsule omeprazole 20 mg capsule,delayed 20 mg PO QAM 01/14/23 01/14/23 release Previous Rx's Medication Instructions Recorded aspirin 81 mg tablet,delayed 81 mg PO QAM 30 days #30 tabs 11/08/21 release Results & Data (ED) Vital Signs Vital Signs - 24 hr 01/18/23 18:55 01/18/23 18:54 01/18/23 19:00 Pulse Rate 58 L 58 L 52 L Respiratory Rate 13 17 Blood Pressure Blood Pressure Mean Pulse Oximetry 94 95 01/18/23 19:10 01/18/23 19:20 01/18/23 19:30 Pulse Rate 51 L 53 L 56 L Respiratory Rate 19 19 16 Blood Pressure 155/79 H Blood Pressure Mean 104 Pulse Oximetry 96 95 96 01/18/23 19:40 01/18/23 19:50 01/18/23 20:00 Pulse Rate 46 L 69 54 L Respiratory Rate 23 24 15 Blood Pressure Blood Pressure Mean Pulse Oximetry 97 96 97 01/18/23 20:10 05/21/23 20:20 Pulse Rate 54 L 58 L Respiratory Rate 19 20 Blood Pressure 158/79 H Blood Pressure Mean 105 Pulse Oximetry 92 96 Laboratory Data Attestation: I reviewed the patient's lab results. 01/18/23 18:58 01/18/23 18:58 Lab Results 01/18/23 01/18/23 01/18/23 Range/Units 18:58 18:58 18:58 WBC 4.56 L (4.8-10.8) K/ul RBC 4.64 L (4.70-6.10) M/uL Hgb 14.1 (14.0-18.0) g/dl Hct 41.2 L (42.0-52.0) % MCV 88.8 (80.0-100.0) fL MCH 30.4 (25.0-34.0) pg MCHC 34.2 (32.0-36.0) g/dL RDW Std Deviation 43.4 (36.4-46.3) fL RDW Coeff of Dane 13.2 (11.5-14.5) % Plt Count 182 (130-400) K/uL MPV 11.3 (9.4-12.4) fL Immature Gran % (Auto) 0.2 % Neut % (Auto) 44.4 % Lymph % (Auto) 40.1 % Callahan % (Auto) 7.0 % Eos % (Auto) 6.8 % Baso % (Auto) 1.5 % Neut # (Auto) 2.02 (1.40-6.50) K/uL Lymph # (Auto) 1.83 (1.2-3.4) K/uL Callahan # (Auto) 0.32 (0.11-0.59) K/uL Eos # (Auto) 0.31 (0-0.50) K/uL Baso # (Auto) 0.07 (0-0.2) K/uL Immature Gran # (Auto) 0.01 (0.01-0.20) K/uL ESR (0-20) mm/hr Sodium 134 L (136-145) mmol/L Potassium 3.7 (3.5-5.1) mmol/L Chloride 101 (98-107) mmol/L Carbon Dioxide 26 (21-32) mmol/L Anion Gap 7 (3-11) BUN 12 (6-23) mg/dl Creatinine 0.78 (0.6-1.4) mg/dl Est Cr Clr Drug Dosing 111.0 ml/min Est GFR ( Amer) 112.1 ml/min Est GFR (Non-Af Amer) 96.7 ml/min BUN/Creatinine Ratio 15.4 (10-20) Glucose 90 (70-99(Fasting)) mg/dl Calcium 8.3 L (8.6-10.3) mg/dl Phosphorus 2.8 (2.5-4.9) mg/dl Magnesium 2.0 (1.7-2.4) mg/dl Total Bilirubin 0.7 (0.2-1.0) mg/dl AST 17 (13-39) U/L ALT 12 (7-52) U/L Alkaline Phosphatase 55 (34-104) U/L Total Creatine Kinase 81 (30-223) U/L Troponin I High Sens 7.0 (0-20) pg/ml C-Reactive Protein 1.32 H (0-0.5) mg/dl Total Protein 6.6 (6.0-8.3) gm/dl Albumin 3.9 (3.4-5.0) gm/dl Globulin 2.7 (2.5-4.0) gm/dl Albumin/Globulin Ratio 1.4 (0.9-2) Lipase 14 (11-82) U/L TSH 3.295 (0.300-4.500) uIu/ml Lyme Disease IgG Ab (Negative) Lyme Disease IgM Ab (Negative) SARS-CoV-2, RNA, NAAT (NEGATIVE) 01/18/23 01/18/23 01/18/23 Range/Units 18:58 18:58 19:20 WBC (4.8-10.8) K/ul RBC (4.70-6.10) M/uL Hgb (14.0-18.0) g/dl Hct (42.0-52.0) % MCV (80.0-100.0) fL MCH (25.0-34.0) pg MCHC (32.0-36.0) g/dL RDW Std Deviation (36.4-46.3) fL RDW Coeff of Daen (11.5-14.5) % Plt Count (130-400) K/uL MPV (9.4-12.4) fL Immature Gran % (Auto) % Neut % (Auto) % Lymph % (Auto) % Callahan % (Auto) % Eos % (Auto) % Baso % (Auto) % Neut # (Auto) (1.40-6.50) K/uL Lymph # (Auto) (1.2-3.4) K/uL Callahan # (Auto) (0.11-0.59) K/uL Eos # (Auto) (0-0.50) K/uL Baso # (Auto) (0-0.2) K/uL Immature Gran # (Auto) (0.01-0.20) K/uL ESR 41 H (0-20) mm/hr Sodium (136-145) mmol/L Potassium (3.5-5.1) mmol/L Chloride (98-107) mmol/L Carbon Dioxide (21-32) mmol/L Anion Gap (3-11) BUN (6-23) mg/dl Creatinine (0.6-1.4) mg/dl Est Cr Clr Drug Dosing ml/min Est GFR ( Amer) ml/min Est GFR (Non-Af Amer) ml/min BUN/Creatinine Ratio (10-20) Glucose (70-99(Fasting)) mg/dl Calcium (8.6-10.3) mg/dl Phosphorus (2.5-4.9) mg/dl Magnesium (1.7-2.4) mg/dl Total Bilirubin (0.2-1.0) mg/dl AST (13-39) U/L ALT (7-52) U/L Alkaline Phosphatase (34-104) U/L Total Creatine Kinase (30-223) U/L Troponin I High Sens (0-20) pg/ml C-Reactive Protein (0-0.5) mg/dl Total Protein (6.0-8.3) gm/dl Albumin (3.4-5.0) gm/dl Globulin (2.5-4.0) gm/dl Albumin/Globulin Ratio (0.9-2) Lipase (11-82) U/L TSH (0.300-4.500) uIu/ml Lyme Disease IgG Ab Negative (Negative) Lyme Disease IgM Ab Equivocal A (Negative) SARS-CoV-2, RNA, NAAT NEGATIVE (NEGATIVE) Administered Medications Aspirin (Aspirin 81 Mg Ectab) [facility] [place]: 02/18/23 08:59 Last Admin: 01/19/23 08:51 Dose: 81 mg Documented By: CHICHO Atorvastatin Calcium (Atorvastatin 40 Mg Tab) 40 [facility] [place] [place]: 02/18/23 08:59 Last Admin: 01/19/23 08:50 Dose: 40 mg Documented By: CHICHO Clopidogrel Bisulfate (Clopidogrel Bisulfate 75 Mg Tab) 75 [facility] [place]: 02/18/23 09:59 Last Admin: 01/19/23 10:46 Dose: 75 mg Documented By: CHICHO Guaifenesin/Dextromethorphan (Guaifenesin/Dextrom Syrup 100mg/10mg 5ml Udc) 5 ml PO Q6H PRN PRN Reason: Cough Stop: 02/18/23 11:26 Last Admin: 01/19/23 18:08 Dose: 5 ml Documented By: CHICHO Heparin Sodium (Porcine) (Heparin Sod 5,000 Unit/0.5 Ml Vial) 5,000 units SQ Q8 [facility] Stop: 02/18/23 13:59 Last Admin: 01/19/23 14:21 Dose: 5,000 units Documented By: CHICHO Azithromycin 500 mg/ Dextrose 255 mls @ 125 mls/hr IV DAILY [facility] Stop: 01/26/23 17:44 Last Admin: 01/19/23 18:18 Dose: 125 mls/hr Documented By: CHICHO Levothyroxine Sodium (Levothyroxine Sodium 25 Mcg Tablet) 25 mcg PO DAILYBB [facility] Stop: 02/18/23 06:29 Last Admin: 01/19/23 05:41 Dose: 25 mcg Documented By: JAMIL Losartan Potassium (Losartan Potassium 25 Mg Tab) 25 mg PO DAILY [facility] Stop: 02/18/23 08:59 Last Admin: 01/19/23 08:51 Dose: 25 mg Documented By: CHICHO Metoprolol Succinate (Metoprolol Succ 25mg Ext Rel Tab) 25 mg PO DAILY [facility] Stop: 02/18/23 08:59 Last Admin: 01/19/23 08:51 Dose: Not Given Documented By: CHICHO Pantoprazole Sodium (Pantoprazole 40 Mg Tab) 40 mg PO QAM [facility] Stop: 02/18/23 08:59 Last Admin: 01/19/23 08:51 Dose: 40 mg Documented By: CHICHO Sterile Water (Tube Feeding Water Flush) 120 ml NG Q4H [facility] Stop: 02/18/23 15:44 Last Admin: 01/19/23 16:13 Dose: 120 ml Documented By: CHICHO Vitamin D (Cholecalciferol 1,000 Units 25 Mcg Tab) 2,000 units PO QAM [facility] Stop: 02/18/23 08:59 Last Admin: 01/19/23 08:50 Dose: 2,000 units Documented By: CHICHO Discontinued Medications Gadobutrol (Gadobutrol 65ml Vial) 8.5 ml IV ONCE ONE Stop: 01/19/23 05:15 Last Admin: 01/19/23 05:15 Dose: 8.5 ml Documented By: PACO Sodium Chloride (Nss 1000ml) 1,000 mls @ 999 mls/hr IV .Q1H1M ONE Stop: 01/18/23 19:37 Last Infusion: 01/19/23 00:50 Dose: 0 mls/hr Documented By: Admin: 01/18/23 19:18 Dose: 999 mls/hr Documented By: DEMETRIO Ceftriaxone Sodium (Rocephin) 2,000 mg in 70 mls @ 140 mls/hr IV NOW STA Stop: 01/18/23 22:08 Last Infusion: 01/19/23 00:50 Dose: 0 mls/hr Documented By: Admin: 01/18/23 22:53 Dose: 140 mls/hr Documented By: CANELO Sodium Chloride (Nss 1000ml) 1,000 mls @ 80 mls/hr IV .[id number] [facility] Stop: 01/19/23 13:30 Last Infusion: 01/19/23 15:57 Dose: 0 mls/hr Documented By: Infusion: 01/19/23 14:14 Dose: 0 mls/hr Documented By: Admin: 01/19/23 01:50 Dose: 80 mls/hr Documented By: JAMIL Ioversol (Optiray 320 500ml) 106 ml IV ONCE ONE Stop: 01/18/23 20:43 Last Admin: 01/18/23 20:43 Dose: 106 ml Documented By: JEREMIE Zolpidem Tartrate (Zolpidem Tartrate 5 Mg Tab) 5 mg PO NOW STA Stop: 01/19/23 03:51 Last Admin: 01/19/23 03:55 Dose: 5 mg Documented By: [facility] Imaging Data Radiologist's Impression: Chest X-Ray 01/18/23 18:35 XR chest 1V portable CLINICAL HISTORY: Chest pain, nonspecific TECHNIQUE: Single frontal radiograph of the chest was obtained. Comparison: Comparison is made to chest radiograph 11/06/2021 FINDINGS: No lines and tubes are seen. The cardiomediastinal silhouette is normal. The lungs are clear. No evidence of pleural effusion or pneumothorax. IMPRESSION: No acute chest disease. ACT 112: Negative or not required by law. Electronically signed by: Anand Angel M.D. 01/18/2023 7:17 PM Chest CTA 01/18/23 18:56 Exam(s): CTA CHEST W/WO Contrast IV Amt: 106 ml optiray 320 EXAM: CT Angiography Chest Without and With Intravenous Contrast CLINICAL HISTORY: Reason for exam: left face/arm, b/l lip, BLE numbness, CP, HTN. TECHNIQUE: Axial computed tomographic angiography images of the chest without and with intravenous contrast. CTDI is 18.21 mGy and DLP is 715.21 mGy-cm. Automated exposure control was utilized for the study. A dose lowering technique was utilized adhering to the principles of ALARA. MIP reconstructed images were created and reviewed. CONTRAST: Patient received 106 ml optiray 320 of IV contrast COMPARISON: No relevant prior studies available. FINDINGS: Pulmonary arteries: No central PE. Suboptimal bolus timing for evaluation of the distal pulmonary arteries. Aorta: No acute aortic syndrome. Lungs: Atelectasis in the lungs. Pleural space: Unremarkable. Heart: Moderate coronary artery calcifications. Bones/joints: No acute fracture. Soft tissues: Unremarkable. Lymph nodes: Unremarkable. IMPRESSION: No acute findings in the visualized arteries of the chest. Electronically signed by: oCnnor Robles MD 01/18/23 21:[address] 01/18/23 18:56 Exam(s): CT HEAD Without Contrast EXAM: CT Head Without Intravenous Contrast CLINICAL HISTORY: Reason for exam: left face/arm, b/l lip, BLE numbness, CP, HTN. TECHNIQUE: Axial computed tomography images of the head/brain without intravenous contrast. CTDI is 36.79 mGy and DLP is 624.41 mGy-cm. Automated exposure control was utilized for the study. A dose lowering technique was utilized adhering to the principles of ALARA. COMPARISON: Head CT 01/14/2023 FINDINGS: Brain: No hemorrhage, extra-axial fluid collection, mass effect, or edema. Mild chronic microvascular ischemic changes. Ventricles: Unremarkable. Bones/joints: Unremarkable. No fracture. Soft tissues: Unremarkable. Sinuses: No acute sinusitis. Mastoid air cells: Unremarkable as visualized. IMPRESSION: 1. No acute intracranial abnormality. Electronically signed by: Connor Robles MD 01/18/23 21:29 PM Head CTA 01/18/23 18:56 Exam(s): CTA HEAD With Contrast IV Amt: 106 ml optiray 320 EXAM: CT Angiography Head With Intravenous Contrast CLINICAL HISTORY: Reason for exam: left face/arm, b/l lip, BLE numbness, CP, HTN. TECHNIQUE: Axial computed tomographic angiography images of the head with intravenous contrast. Automated exposure control was utilized for the study. A dose lowering technique was utilized adhering to the principles of ALARA. MIP reconstructed images were created and reviewed. CONTRAST: Patient received 106 ml optiray 320 of IV contrast COMPARISON: No relevant prior studies available. FINDINGS: Right internal carotid artery: No acute findings. Intracranial segment is patent with no significant stenosis. No aneurysm. Right anterior cerebral artery: Unremarkable. No occlusion or significant stenosis. No aneurysm. Right middle cerebral artery: Unremarkable. No occlusion or significant stenosis. No aneurysm. Right posterior cerebral artery: Unremarkable. No occlusion or significant stenosis. No aneurysm. Right vertebral artery: Unremarkable as visualized. Left internal carotid artery: No acute findings. Intracranial segment is patent with no significant stenosis. No aneurysm. Left anterior cerebral artery: Unremarkable. No occlusion or significant stenosis. No aneurysm. Left middle cerebral artery: Unremarkable. No occlusion or significant stenosis. No aneurysm. Left posterior cerebral artery: Unremarkable. No occlusion or significant stenosis. No aneurysm. Left vertebral artery: Unremarkable as visualized. Basilar artery: Unremarkable. No occlusion or significant stenosis. No aneurysm. IMPRESSION: Normal head CTA. Electronically signed by: Connor Robles MD 01/18/23 21:38 PM Neck CTA 01/18/23 18:56 Exam(s): CTA NECK With Contrast IV Amt: 106 ml optiray 320 EXAM: CT Angiography Neck With Intravenous Contrast CLINICAL HISTORY: Reason for exam: left face/arm, b/l lip, BLE numbness, CP, HTN. TECHNIQUE: Routine carotid CT angiography protocol was performed with intravenous contrast. NASCET criteria using the distal ICAs for comparison were used for evaluation of stenoses. CTDI is 15.02 mGy and DLP is 987.86 mGy-cm. Automated exposure control was utilized for the study. A dose lowering technique was utilized adhering to the principles of ALARA. MIP reconstructed images were created and reviewed. CONTRAST: Patient received 106 ml optiray 320 of IV contrast COMPARISON: None. FINDINGS: VASCULATURE: Right common carotid artery: Unremarkable. No occlusion or significant stenosis. No dissection. Right internal carotid artery: Atheromatous plaque within the proximal right internal carotid artery causing 40-50 % stenosis. No dissection. Right external carotid artery: Unremarkable. No occlusion. Right vertebral artery: Unremarkable. No occlusion or significant stenosis. No dissection. Left common carotid artery: Unremarkable. No occlusion or significant stenosis. No dissection. Left internal carotid artery: Unremarkable. Extracranial segment is patent with no occlusion or significant stenosis. No dissection. Left external carotid artery: Unremarkable. No occlusion. Left vertebral artery: Unremarkable. No occlusion or significant stenosis. No dissection. NECK: Bones/joints: Unremarkable. Soft tissues: Unremarkable. Lung apices: Clear. CAROTID STENOSIS REFERENCE USING NASCET CRITERIA: % ICA stenosis = (1 - narrowest ICA diameter/diameter of distal cervical ICA) x 100. Mild - <50% stenosis. Moderate - 50-69% stenosis. Severe - 70-94% stenosis. Near occlusion - 95-99% stenosis. Occluded - 100% stenosis. IMPRESSION: Atheromatous plaque within the proximal right internal carotid artery causing 40-50 % stenosis. Electronically signed by: Connor Robles MD 01/18/23 21:36 PM Discharge Plan Visit Data Chief Complaint: Neuro Symptoms/Deficit Stated Complaint: LIP NUMBNESS, LEFT ARM NUMBNESS, BLURRED VISION ED Provider: Walter Son Discharge Problem: Stroke-like symptoms, Dysphagia, Borderline results on serologic testing for Lyme disease, Hypertension, Left facial numbness, Carotid stenosis, right, Arm paresthesia, left Patient Disposition: Admitted As Inpatient Discharge Instructions Interventions: ED Discharge Assessment Last Done: 01/19/23 00:50
[2023-01-18] MEDS ORDERED: SODIUM CHLORIDE 0.9% 1000ML 1,000 ML IV ONE (18:37)
--- NOTE | 2023-01-18 19:19 | XRay Report ---
XR chest 1V portable CLINICAL HISTORY: Chest pain, nonspecific TECHNIQUE: Single frontal radiograph of the chest was obtained. Comparison: Comparison is made to chest radiograph 11/06/2021 FINDINGS: No lines and tubes are seen. The cardiomediastinal silhouette is normal. The lungs are clear. No evid ence of pleural effusion or pneumothorax. IMPRESSION: No acute chest disease. ACT 112: Negative or not required by law. Electronically signed by: Anand Angel M.D. 01/18/2023 7:17 PM
[2023-01-18 19:48] LABS: Basophils # (auto) 0.07 K/uL (0-0.2); Basophils % (auto) 1.5 %; Eosinophils # (auto) 0.31 K/uL (0-0.50); Eosinophils % (auto) 6.8 %; Hematocrit (blood only) 41.2 % (42.0-52.0); Hemoglobin 14.1 g/dl (14.0-18.0); Immature Granulocytes # (auto) 0.01 K/uL (0.01-0.20); Immature Granulocytes % (auto) 0.2 %; Lymphocytes # (auto) 1.83 K/uL (1.2-3.4); Lymphocytes % (auto) 40.1 %; Mean Corpuscular Hemoglobin 30.4 pg (25.0-34.0); Mean Corpuscular Hgb Conc 34.2 g/dL (32.0-36.0); Mean Corpuscular Volume 88.8 fL (80.0-100.0); Mean Platelet Volume 11.3 fL (9.4-12.4); Monocytes # (auto) 0.32 K/uL (0.11-0.59); Neutrophils # (auto) 2.02 K/uL (1.40-6.50); Neutrophils % (auto) 44.4 %; Platelet Count 182 K/uL (130-400); RDW Coefficient of Variation 13.2 % (11.5-14.5); RDW Standard Deviation 43.4 fL (36.4-46.3); Red Blood Count 4.64 M/uL (4.70-6.10); White Blood Count 4.56 K/ul (4.8-10.8)
[2023-01-18 20:07] LABS: Albumin Level 3.9 gm/dl (3.4-5.0); Bilirubin,Total 0.7 mg/dl (0.2-1.0); Calcium 8.3 mg/dl (8.6-10.3); Potassium 3.7 mmol/L (3.5-5.1)
[2023-01-18 20:14] LABS: Albumin Globulin Ratio 1.4 (0.9-2); BUN Creatinine Ratio 15.4 (10-20); C Reactive Protein 1.32 mg/dl (0-0.5); Est GFR (African American) 112.1 ml/min; Est GFR (Non-African American) 96.7 ml/min; Globulin 2.7 gm/dl (2.5-4.0); Phosphorus 2.8 mg/dl (2.5-4.9); Total Protein 6.6 gm/dl (6.0-8.3)
[2023-01-18 20:18] LABS: Lyme Ab IgG w/WB Rflx Negative (Negative)
[2023-01-18 20:40] LABS: Lyme Ab IgM w/WB Rflx Equivocal (Negative)
[2023-01-18] MEDS ORDERED: OPTIRAY 320 500ml IV ONE (20:42)
--- NOTE | 2023-01-18 21:30 | CT Scan Report ---
Exam(s): CT HEAD Without Contrast EXAM: CT Head Without Intravenous Contrast CLINICAL HISTORY: Reason for exam: left face/arm, b/l lip, BLE numbness, CP, HTN. TECHNIQUE: Axial computed tomography images of the head/brain without intravenous contrast. CTDI is 36.79 mGy and DLP is 624.41 mGy-cm. Automated exposure control was utilized for the study. A dose lowering technique was utilized adhering to the principles of ALARA. COMPARISON: Head CT 01/14/2023 FINDINGS: Brain: No hemorrhage, extra-axial fluid collection, mass effect, or edema. Mild chronic microvascular ischemic changes. Ventricles: Unremarkable. Bones/joints: Unremarkable. No fracture. Soft tissues: Unremarkable. Sinuses: No acute sinusitis. Mastoid air cells: Unremarkable as visualized. IMPRESSION: 1. No acute intracranial abnormality. Electronically signed by: Connor Robles MD 01/18/23 21:29 PM
--- NOTE | 2023-01-18 21:36 | CT Scan Report ---
Exam(s): CTA CHEST W/WO Contrast IV Amt: 106 ml optiray 320 EXAM: CT Angiography Chest Without and With Intravenous Contrast CLINICAL HISTORY: Reason for exam: left face/arm, b/l lip, BLE numbness, CP, HTN. TECHNIQUE: Axial computed tomographic angiography images of the chest without and with intravenous contrast. CTDI is 18.21 mGy and DLP is 715.21 mGy-cm. Automated exposure control was utilized for the study. A dose lowering technique was utilized adhering to the principles of ALARA. MIP reconstructed images were created and reviewed. CONTRAST: Patient received 106 ml optiray 320 of IV contrast COMPARISON: No relevant prior studies available. FINDINGS: Pulmonary arteries: No central PE. Suboptimal bolus timing for evaluation of the distal pulmonary arteries. Aorta: No acute aortic syndrome. Lungs: Atelectasis in the lungs. Pleural space: Unremarkable. Heart: Moderate coronary artery calcifications. Bones/joints: No acute fracture. Soft tissues: Unremarkable. Lymph nodes: Unremarkable. IMPRESSION: No acute findings in the visualized arteries of the chest. Electronically signed by: Connor Robles MD 01/18/23 21:34 PM
--- NOTE | 2023-01-18 21:37 | CT Scan Report ---
Exam(s): CTA NECK With Contrast IV Amt: 106 ml optiray 320 EXAM: CT Angiography Neck With Intravenous Contrast CLINICAL HISTORY: Reason for exam: left face/arm, b/l lip, BLE numbness, CP, HTN. TECHNIQUE: Routine carotid CT angiography protocol was performed with intravenous contrast. NASCET criteria using the distal ICAs for comparison were used for evaluation of stenoses. CTDI is 15.02 mGy and DLP is 987.86 mGy-cm. Automated exposure control was utilized for the study. A dose lowering technique was utilized adhering to the principles of ALARA. MIP reconstructed images were created and reviewed. CONTRAST: Patient received 106 ml optiray 320 of IV contrast COMPARISON: None. FINDINGS: VASCULATURE: Right common carotid artery: Unremarkable. No occlusion or significant stenosis. No dissection. Right internal carotid artery: Atheromatous plaque within the proximal right internal carotid artery causing 40-50 % stenosis. No dissection. Right external carotid artery: Unremarkable. No occlusion. Right vertebral artery: Unremarkable. No occlusion or significant stenosis. No dissection. Left common carotid artery: Unremarkable. No occlusion or significant stenosis. No dissection. Left internal carotid artery: Unremarkable. Extracranial segment is patent with no occlusion or significant stenosis. No dissection. Left external carotid artery: Unremarkable. No occlusion. Left vertebral artery: Unremarkable. No occlusion or significant stenosis. No dissection. NECK: Bones/joints: Unremarkable. Soft tissues: Unremarkable. Lung apices: Clear. CAROTID STENOSIS REFERENCE USING NASCET CRITERIA: % ICA stenosis = (1 - narrowest ICA diameter/diameter of distal cervical ICA) x 100. Mild - <50% stenosis. Moderate - 50-69% stenosis. Severe - 70-94% stenosis. Near occlusion - 95-99% stenosis. Occluded - 100% stenosis. IMPRESSION: Atheromatous plaque within the proximal right internal carotid artery causing 40-50 % stenosis. Electronically signed by: Connor Robles MD 01/18/23 21:36 PM
--- NOTE | 2023-01-18 21:38 | CT Scan Report ---
Exam(s): CTA HEAD With Contrast IV Amt: 106 ml optiray 320 EXAM: CT Angiography Head With Intravenous Contrast CLINICAL HISTORY: Reason for exam: left face/arm, b/l lip, BLE numbness, CP, HTN. TECHNIQUE: Axial computed tomographic angiography images of the head with intravenous contrast. Automated exposure control was utilized for the study. A dose lowering technique was utilized adhering to the principles of ALARA. MIP reconstructed images were created and reviewed. CONTRAST: Patient received 106 ml optiray 320 of IV contrast COMPARISON: No relevant prior studies available. FINDINGS: Right internal carotid artery: No acute findings. Intracranial segment is patent with no significant stenosis. No aneurysm. Right anterior cerebral artery: Unremarkable. No occlusion or significant stenosis. No aneurysm. Right middle cerebral artery: Unremarkable. No occlusion or significant stenosis. No aneurysm. Right posterior cerebral artery: Unremarkable. No occlusion or significant stenosis. No aneurysm. Right vertebral artery: Unremarkable as visualized. Left internal carotid artery: No acute findings. Intracranial segment is patent with no significant stenosis. No aneurysm. Left anterior cerebral artery: Unremarkable. No occlusion or significant stenosis. No aneurysm. Left middle cerebral artery: Unremarkable. No occlusion or significant stenosis. No aneurysm. Left posterior cerebral artery: Unremarkable. No occlusion or significant stenosis. No aneurysm. Left vertebral artery: Unremarkable as visualized. Basilar artery: Unremarkable. No occlusion or significant stenosis. No aneurysm. IMPRESSION: Normal head CTA. Electronically signed by: Connor Robles MD 01/18/23 21:38 PM
[2023-01-18] MEDS ORDERED: cefTRIAXone SODIUM 2,000 MG/70 ML BAG IV STA (21:39)
[2023-01-19] MEDS ORDERED: POLYETHYLENE (MIRALAX) 17 GM PACK PO PRN (01:01)
[2023-01-19] MEDS ORDERED: NITROGLYCERIN SL 0.4 MG/TAB TAB SL PRN (01:01)
[2023-01-19] MEDS ORDERED: SODIUM CHLORIDE 0.9% 1000ML 1,000 ML IV SCH (01:01)
[2023-01-19] MEDS ORDERED: ACETAMINOPHEN 325 MG TAB PO PRN (01:01)
[2023-01-19] MEDS ORDERED: PHARMACIST DISCHARGE MED REC CONSULT PRN (01:01)
--- NOTE | 2023-01-19 02:49 | History and Physical Report ---
DATE OF ADMISSION: 01/18/2023. CHIEF COMPLAINT: Numbness on the left side. HISTORY OF PRESENT ILLNESS: This is a 62-year-old male with past medical history significant for ST-elevated [place] in October 2021, status post drug-eluting stent to mid LAD, history of hypophysitis with secondary adrenal insufficiency, hypogonadism, hypothyroidism, treated with steroids and thyroid hormone, his repeat MRI showed improvement, no longer on steroids, prediabetes, venous insufficiency, hypertension, GERD, history of DVT several years ago, used to be on Coumadin and Xarelto .Xarelto was stopped when he was started on Brilinta last year and no longer taking it, comes with difficulty swallowing and also some numbness and ambulatory dysfunction. The patient was here in the ER on 01/14/2023 because the night before he could not swallow and it continued for 24 hours. . At that time, he also felt left side and left arm were somewhat numb and his workup in ER with CTA of the head and CTA of the head were negative, so he was discharged. After going home, symptoms had been waning and waxing and now while walking, he is wobbly and he felt also some numbness in his lips. His difficulty swallowing is on and off and her symptoms are not improving and getting worse. He came to the ER again. Again, today,CT head, CTA of the neck and CTA of the head unremarkable. Resting comfortably, hemodynamically stable. Has some dizziness. No headache. Vision not exact double vision, but seems double vision, started today morning. He chronically has problem left eye lateral gaze He has some ear fullness. No runny nose, no sore throat, no cough, no chest pain, no shortness of breath, no nausea, no abdominal pain. Normal bowel and bladder movements. Hemodynamics are stable.Denies tick bite. ALLERGIES: TO DOXYCYCLINE AND LISINOPRIL. PAST MEDICAL HISTORY: As mentioned above. PAST SURGICAL HISTORY: Left heart catheterization, cardiac stent placement, vasectomy. MEDICATIONS: The patient is on aspirin 81 mg p.o. daily, atorvastatin 40 mg p.o. daily, vitamin D 50 mcg p.o. daily, levothyroxine 25 mcg p.o. daily, losartan 25 mg p.o. daily, metoprolol succinate 25 mg p.o. daily, omeprazole 20 mg p.o. daily. FAMILY HISTORY: Significant for mother has CAD, father has hypertension, mother has hypertension. Maternal grandfather has diabetes, heart disorder. Paternal grandfather has heart disorder. Maternal grandmother has diabetes and heart disorder. Paternal grandmother has diabetes. SOCIAL HISTORY: . Smokes half pack a day for last 15 years. No alcohol. No drug use. REVIEW OF SYSTEMS: As per HPI. Rest of review of systems is negative. PHYSICAL EXAMINATION: GENERAL: The patient is moderate build, not in acute distress. VITAL SIGNS: Temperature 37.1, pulse 50, respiratory rate 20, blood pressure 158/79, oxygen 96% on room air. HEENT: Pupils equal, round and reactive to light. No facial droop. Speech is clear. Oral mucosa moist. Tongue is midline.Ear wax seen. NECK: No JVD, no neck masses. CARDIOVASCULAR: S1 and S2 heard. Regular rate and rhythm. No murmur, no gallop. RESPIRATORY: Normal AP diameter. No accessory muscle use. No wheezing, no crackles. ABDOMEN: Soft, bowel sounds present, nontender, no distention. CENTRAL NERVOUS SYSTEM: Alert and oriented. Speech is clear. Can raise his brows. No facial droop. Tongue is midline. Power 5/5 in all extremities. Coordination of movements normal. No pronator drift. Sensation slightly diminished in the left upper extremity. EXTREMITIES: No edema, no erythema. LABORATORY DATA: WBC 4.5, hemoglobin 14.1, hematocrit 41.2, platelets 182. ESR 41. Sodium 134, potassium 3.7, chloride 101, bicarbonate 26, BUN 12, creatinine 0.7, serum glucose 90, calcium 8.3, phosphorus 2.8, magnesium 2, total bilirubin 0.7, AST 17, ALT 12, alkaline phosphatase 55, total creatine kinase 81. Troponin I high sensitivity 7. C-reactive protein 1.32. TSH 3.2. Lipase 14. Lyme screen equivocal. IMAGING DATA: Neck CTA atheromatous plaque within the proximal right internal carotid artery causing 40%-50% stenosis. Head CTA, normal head CTA. Head CT without contrast, no acute findings. Chest CTA, no acute findings. Chest x- ray, no acute disease in the chest. EKG: Sinus bradycardia with first-degree AV block, rate of 53, no significant change was found. ASSESSMENT AND PLAN: A 62-year-old female, presents with ongoing on and off symptoms with numbness in the side of the face and arm and ambulatory dysfunction. symptoms getting worse and also some difficulty swallowing on and off. 1. Stroke-like symptoms.as above. Workup with CTA of the head and neck and ct head were unremarkable. We will do MRI scan. Speech evaluation. Monitor in [facility] [facility] [facility]. Consult neurology in the a.m. for further recommendations. We will keep him n.p.o. until seen by speech. Continue home aspirin and statin. 2. Questionable Lyme disease. Er started on Rocephin which will be continued. The patient says she was treated for Lyme disease last year by his PCP. 3. History of coronary artery disease, status post stent. Continue his aspirin, statin and beta-sherita. 4. History of hypertension: Continue losartan, metoprolol. We will monitor the blood pressure. 5. History of hypothyroidism: Continue Synthroid. 6. History of deep venous thrombosis several years ago. No longer on anticoagulation at this time. 7. History of prediabetes: Will follow HbA1c levels. 8. History of hypophysitis with adrenal l insufficiency.hypothyroidism and hypogonadism. He was on steroids in the past. Says improved. 10. Deep venous thrombosis prophylaxis: Sequential compression devices for now. DISPOSITION: Closely monitor in the [employer] [facility]. PT/OT prior to discharge. Social service to help with discharge planning. Level 1 full code. Job ID: [id number] [facility]
[2023-01-19] MEDS ORDERED: ZOLPIDEM TARTRATE 5 MG TAB PO STA (03:50)
[2023-01-19 03:58] LABS: Appearance Urine Clear (Clear); Bilirubin Urine Negative (Negative); Blood Urine Negative (Negative); Color Urine Yellow; Glucose Urine UA Negative (Negative); Ketones Urine Negative (Negative); Leukocyte Esterase Urine Negative (Negative); Nitrite Urine Negative (Negative); Protein Urine Negative (Negative); Specific Gravity Urine 1.025 (1.000-1.030); Urobilinogen Urine Negative (Negative); pH Urine 6.5 (4.5-7.5)
[2023-01-19] MEDS ORDERED: GADOBUTROL 65ML VIAL IV ONE (05:14)
[2023-01-19] MEDS: LEVOTHYROXINE SODIUM 25 MCG TABLET PO SCH (05:41)
[2023-01-19 07:52] LABS: Basophils # (auto) 0.06 K/uL (0-0.2); Basophils % (auto) 1.1 %; Eosinophils # (auto) 0.25 K/uL (0-0.50); Eosinophils % (auto) 4.6 %; Hemoglobin 13.1 g/dl (14.0-18.0); Immature Granulocytes # (auto) 0.01 K/uL (0.01-0.20); Immature Granulocytes % (auto) 0.2 %; Lymphocytes % (auto) 24.1 %; Mean Corpuscular Hgb Conc 33.6 g/dL (32.0-36.0); Mean Corpuscular Volume 89.2 fL (80.0-100.0); Monocytes # (auto) 0.34 K/uL (0.11-0.59); Monocytes % (auto) 6.3 %; Neutrophils # (auto) 3.44 K/uL (1.40-6.50); Neutrophils % (auto) 63.7 %; Platelet Count 171 K/uL (130-400); RDW Standard Deviation 42.6 fL (36.4-46.3); Red Blood Count 4.37 M/uL (4.70-6.10)
[2023-01-19 07:59] LABS: Estimated Average Glucose 117 mg/dl; Hemoglobin A1C 5.7 % (4.5-5.6)
[2023-01-19 08:41] LABS: BUN Creatinine Ratio 11.8 (10-20); Calcium 8.4 mg/dl (8.6-10.3); Creatinine Clr Calc Pharmacy 113.9 ml/min; Est GFR (African American) 113.3 ml/min; Est GFR (Non-African American) 97.8 ml/min; Potassium 3.8 mmol/L (3.5-5.1)
[2023-01-19] MEDS: ATORVASTATIN 40 MG TAB PO SCH (08:50)
[2023-01-19] MEDS: CHOLECALCIFEROL 1,000 UNITS 25 MCG TAB PO SCH (08:50)
[2023-01-19] MEDS: METOPROLOL SUCC 25MG EXT REL TAB PO SCH (08:51)
[2023-01-19] MEDS: LOSARTAN POTASSIUM 25 MG TAB PO SCH (08:51)
[2023-01-19] MEDS: ASPIRIN 81 MG ECTAB PO SCH (08:51)
[2023-01-19] MEDS: PANTOprazole 40 MG TAB PO SCH (08:51)
--- NOTE | 2023-01-19 09:00 | Magnetic Resonance Report ---
MR brain wo/w con CLINICAL HISTORY: stroke like symptoms , left facial numbness and tingling TECHNIQUE: Multiplanar and multisequence MR images of the brain were obtained prior to and following administration of gadolinium contrast. Comparison: Comparison is made to MRI brain 07/18/2016 FINDINGS: No abnormal restricted diffusion is identified. Foci of T2 and FLAIR hyperintensity are noted in the paraventricular areas consistent with chronic small vessel ischemic disease. Ex vacuo ventriculomegal y and sulcal enlargement is noted compatible with diffuse volume loss. No mass or abnormal enhancemen t is seen. There is no mass effect or midline shift. There is no evidence of acute intraparenchymal h emorrhage. No extra axial fluid collections are seen. The corpus callosum, pituitary gland, and cereb ellar tonsils appear grossly unremarkable. Flow voids of the major intracranial arterial vessels are identified. The imaged portions of the para nasal sinuses, mastoid air cells, and orbits are unremarkable. Within limits of a nondedicated exam, previously noted pituitary adenoma is not seen on today's exam. IMPRESSION: No acute abnormality and in particular no evidence of acute infarct. ACT 112: Negative or not required by law. Electronically signed by: Anand Angel M.D. 01/19/2023 8:59 AM
--- NOTE | 2023-01-19 09:43 | Neurology Consultation ---
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 Though CTA is negative x2 per radiology, I do suspect a R vertebral artery dissection secondary to chiropractic neck manipulation. There are no high risk features in the vert - no thrombus or visible flap. Recommend the following: -- Continue PT/OT/ST -- Avoid any neck manipulation in the future -- Dual antiplatelet therapy - aspirin 81mg daily and plavix 75mg daily for 21 days, then aspirin monotherapy -- Lipitor 40mg daily -- Echo is of limited utility here -- Follow-up with neurology in 4-6 weeks -- Recommend ophthalmology follow-up after discharge -- Neurology will sign off, please contact us with further questions Telehealth Consultation Telehealth Information Telehealth Information: I performed this visit using a real-time telehealth connection between my location and the patients location ([facility]). After connecting through interactive tele-video, patient was identified by name and date of and/or wristband check.Patient (or authorized healthcare shipping services sales representative) was informed that this was a telemedicine visit and it was being conducted confidentially over secure lines. My office door was closed and no one else was present in the room with me.Patient (or authorized healthcare shipping services sales representative) provided consent to proceed with the visit, expressed an understanding of privacy and security of the telemedicine visit, and gave permission to have a hospital shipping services sales representative in the room in order to assist with the visit and to conduct portions of the visit, as needed. I informed the patient (or authorized healthcare shipping services sales representative) that I reviewed their record and presented the opportunity for them to ask any questions regarding the visit today. The patient agreed to participate. History of Present Illness Reason for Consultation: Dysphagia, concern for stroke Requesting Physician: Dr. Mendez Attending Physician: Everett Mendez MD History of Present Illness Mr. Khalil is a 62 yo M presenting with dizziness, gait instability, dysphagia and left sided numbness after chiropractic neck manipulation on Thursday of last week (6 days ago). Symptoms have been fluctuating since then and he did present to the [facility] ED on 01/14 for dysphagia but was discharged after negative vessel studies. 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 When looking to the right he notes oscillopsia which is new. He also describes a change in sensation whereby hot showers are not felt as hot on the left side of his body. He has no history of stroke in the past and has been taking a daily aspirin prior to admission. Otherwise no recent falls or other trauma. Allergies Allergy/AdvReac Type Severity Reaction Status Date / Time lisinopril Allergy Unknown dry cough Verified 01/14/23 22:43 doxycycline Allergy Hives Verified 01/14/23 22:44 Home Medications Medication Instructions Recorded Confirmed Type losartan 25 mg tablet 25 mg PO DAILY 05/28/20 01/14/23 History metoprolol succinate 25 mg 25 mg PO DAILY 05/28/20 01/14/23 History tablet,extended release 24 hr levothyroxine 25 mcg tablet 25 mcg PO QAM 11/06/21 01/14/23 History aspirin 81 mg tablet,delayed 81 mg PO QAM 30 days #30 tabs 11/08/21 01/14/23 Rx release atorvastatin 40 mg tablet 40 mg PO QAM 01/14/23 01/14/23 History cholecalciferol (vitamin D3) 50 50 mcg PO QAM 01/14/23 01/14/23 History mcg (2,000 unit) capsule omeprazole 20 mg capsule,delayed 20 mg PO QAM 01/14/23 01/14/23 History release Patient History Medical History Family history of blood clots Hypertension Surgical History H/O vasectomy Social History Smoking Status: Current every day smoker Tobacco Type: Cigarettes Hx Alcohol Use: Yes Alcohol type: beer Hx Substance Use: No Preferred Language: Japanese Communication Ability: Effective Jack Spooler Tender Required: No Beliefs That Will Affect Care: None marital status: Current Living Situation: Alone How many Children do You have: 4 Feels Safe at Home: Yes Safety Concerns: Feels Safe At This Time Assistive Devices: Glasses Review of Systems Negative other than HPI. Physical Exam Neurological Examination: Mental Status: Awake and alert. Oriented to person, place, and time. Fluent. Comprehension intact. Affect appropriate. Cranial Nerves: II: pupils 3/3 to 2/2, morales grossly intact. 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 Possible L ptosis V: Facial sensation symmetric to light touch VII: Facial expression symmetric VIII: Hearing intact to voice XII: Tongue midline Motor: Strength was symmetric and antigravity throughout. Pronator drift was absent. There were no abnormal movements. Sensory: Sensation to light touch was intact. Coordination: Finger to nose and heel to jaimes were dysmetric on the left. Reflexes: Unable to assess over telemedicine Results & Data Vital Signs (Past 12 Hours) Vital Signs Temp Pulse Pulse Resp BP BP Pulse Ox 01/19/23 07:59 53 L 01/19/23 07:34 36.4 C L 51 L 18 152/82 H 94 01/19/23 05:53 36.4 C L 59 L 18 150/87 H 94 01/19/23 01:00 53 L 01/19/23 00:51 01/19/23 00:51 36.6 C 18 162/103 H 96 01/19/23 01:01 36.6 C 18 162/103 H 96 01/19/23 01:01 01/19/23 00:06 59 L 15 149/96 H 96 Pulse Ox O2 Del Method O2 Del Method 01/19/23 07:59 01/19/23 07:34 Room Air 01/19/23 05:53 Room Air 01/19/23 01:00 01/19/23 00:51 Room Air 01/19/23 00:51 Room Air 01/19/23 01:01 Room Air 01/19/23 01:01 96 Room Air 01/19/23 00:06 Room Air Laboratory Results Abnormal lab results 01/18/23 01/18/23 01/18/23 Range/Units 18:58 18:58 18:58 WBC 4.56 L (4.8-10.8) K/ul RBC 4.64 L (4.70-6.10) M/uL Hgb (14.0-18.0) g/dl Hct 41.2 L (42.0-52.0) % ESR 41 H (0-20) mm/hr Sodium 134 L (136-145) mmol/L Hemoglobin A1c (4.5-5.6) % Calcium 8.3 L (8.6-10.3) mg/dl C-Reactive Protein 1.32 H (0-0.5) mg/dl Lyme Disease IgM Ab (Negative) 01/18/23 01/19/23 01/19/23 Range/Units 18:58 06:52 06:52 WBC (4.8-10.8) K/ul RBC 4.37 L (4.70-6.10) M/uL Hgb 13.1 L (14.0-18.0) g/dl Hct 39.0 L (42.0-52.0) % ESR (0-20) mm/hr Sodium 134 L (136-145) mmol/L Hemoglobin A1c (4.5-5.6) % Calcium 8.4 L (8.6-10.3) mg/dl C-Reactive Protein (0-0.5) mg/dl Lyme Disease IgM Ab Equivocal A (Negative) 01/19/23 Range/Units 06:52 WBC (4.8-10.8) K/ul RBC (4.70-6.10) M/uL Hgb (14.0-18.0) g/dl Hct (42.0-52.0) % ESR (0-20) mm/hr Sodium (136-145) mmol/L Hemoglobin A1c 5.7 H (4.5-5.6) % Calcium (8.6-10.3) mg/dl C-Reactive Protein (0-0.5) mg/dl Lyme Disease IgM Ab (Negative) Diagnostic Findings MRI brain 01/19 - small R medullar infarct CTA - No evidence of dissection
[2023-01-19] MEDS: CLOPIDOGREL BISULFATE 75 MG TAB PO SCH (10:46)
[2023-01-19] MEDS ORDERED: guaiFENesin/DEXTROM SYRUP 100MG/10MG 5ML UDC PO PRN (11:27)
--- NOTE | 2023-01-19 11:38 | Electrocardiogram Report ---
Test Reason : Blood Pressure : / mmHG Vent. Rate : 053 BPM Atrial Rate : 053 BPM P-R Int : 216 ms QRS Dur : 096 ms QT Int : 472 ms P-R-T Axes : 025 -14 026 degrees QTc Int : 442 ms Sinus bradycardia with 1st degree A-V block Poor R wave progression, consider anterior WI vs. lead placement vs. LVH Abnormal ECG When compared with ECG of 14-JAN-2023 21:02, No significant change was found Confirmed by Iván Velásquez ([id number]) on 01/19/2023 11:37:53 AM Referred By: REFERRED SELF Confirmed By:Iván Velásquez
--- NOTE | 2023-01-19 11:39 | Pharmacy Report ---
- Date of Service January 19, 2023 - Pharmacy CVA/TIA Medication Review Medications to Prevent Stroke handout has been added to the patients discharge packet. Antiplatelet(s) * Aspirin + Plavix Cholesterol * High intensity statin: atorvastatin 40 mg daily DVT Prophylaxis * Pharmacologic and mechanical DVT prophylaxis deferred due to high risk patient Therapeutic Anticoagulation * No history of Afib/Aflutter noted Type 2 Diabetes * Patient does not have T2DM
--- NOTE | 2023-01-19 12:26 | Hospitalist Progress Note ---
Date of Service January 19, 2023 Assessment & Plan (1) Stroke, Wallenberg's syndrome: Plan: Patient presents to the hospital with dizziness, gait instability, dysphagia and left sided numbness after chiropractic neck manipulation on Thursday of last week (6 days ago). Presented to the ED on 01/14 for dysphagia and was discharged after negative vessel studies. 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 Aspirin monotherapy after it. Started on Lipitor 40 mg daily PT OT eval Speech eval Ophthalmology follow-up after discharge (2) Hypertension: Plan: Continue on losartan and metoprolol (3) Hypothyroidism: Plan: Continue levothyroxine Plan DVT prophylaxis heparin Full code Disposition-PT OT eval done; might need rehab. Admission and Anticipated Discharge Date Admission Date: January 18, 2023 Subjective Patient seen and examined at bedside. He is sitting up on the chair; not in distress. He reports cough which is dry. Denies any chest pain or shortness of breath. Telemetry shows normal sinus rhythm. Review of Systems Review of Systems: All systems reviewed & are unremarkable except as noted in Subjective Physical Exam Physical Exam: Constitutional: WD/WN, vitals as above, NAD, sitting up in bed, pleasant, conversing easily Respiratory: normal respiratory effort, lungs clear to auscultation, no wheeze, rales, rhonchi. Normal insp/exp effort, no accessory muscle use Cardiovascular: RRR, no murmur, no edema Vessels: no JVD or carotid bruit Chest: normal inspection of chest Abdomen: normal bowel sounds, soft, nontender, no hepatosplenomegaly Musculoskeletal: no cyanosis or clubbing, extremities motor strength 5/5 Skin: no rashes, warm and dry normal turgor Neurologic: Awake alert oriented x3. 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 Left ptosis. No nystagmus. Strength symmetrical 5/5. Sensation intact. [id number], djkf-ji-[id number] dysmetric on the left Psychiatric: A+Ox3, euthymic affect Lymphatic: no cervical or axillary lymphadenopathy : deferred Results & Data Results & Data Vital Signs (Past 12 Hours) Vital Signs Temp Pulse Pulse Resp BP Pulse Ox Pulse Ox 01/19/23 11:49 36.4 C L 71 18 133/78 95 01/19/23 07:59 53 L 01/19/23 07:34 36.4 C L 51 L 18 152/82 H 94 01/19/23 05:53 36.4 C L 59 L 18 150/87 H 94 01/19/23 01:00 53 L 01/19/23 00:51 01/19/23 00:51 36.6 C 18 162/103 H 96 01/19/23 01:01 36.6 C 18 162/103 H 96 01/19/23 01:01 96 O2 Del Method O2 Del Method 01/19/23 11:49 Room Air 01/19/23 07:59 01/19/23 07:34 Room Air 01/19/23 05:53 Room Air 01/19/23 01:00 01/19/23 00:51 Room Air 01/19/23 00:51 Room Air 01/19/23 01:01 Room Air 01/19/23 01:01 Room Air Laboratory Results Laboratory Results WBC 5.40 K/ul (4.8-10.8) 01/19/23 06:52 RBC 4.37 M/uL (4.70-6.10) L 01/19/23 06:52 Hgb 13.1 g/dl (14.0-18.0) L 01/19/23 06:52 Hct 39.0 % (42.0-52.0) L 01/19/23 06:52 MCV 89.2 fL (80.0-100.0) 01/19/23 06:52 MCH 30.0 pg (25.0-34.0) 01/19/23 06:52 MCHC 33.6 g/dL (32.0-36.0) 01/19/23 06:52 RDW Std Deviation 42.6 fL (36.4-46.3) 01/19/23 06:52 RDW Coeff of [place] 13.0 % (11.5-14.5) 01/19/23 06:52 Plt Count 171 K/uL (130-400) 01/19/23 06:52 MPV 11.0 fL (9.4-12.4) 01/19/23 06:52 Immature Gran % (Auto) 0.2 % 01/19/23 06:52 Neut % (Auto) 63.7 % 01/19/23 06:52 Lymph % (Auto) 24.1 % 01/19/23 06:52 [place] % (Auto) 6.3 % 01/19/23 06:52 Eos % (Auto) 4.6 % 01/19/23 06:52 Baso % (Auto) 1.1 % 01/19/23 06:52 Neut # (Auto) 3.44 K/uL (1.40-6.50) 01/19/23 06:52 Lymph # (Auto) 1.30 K/uL (1.2-3.4) 01/19/23 06:52 [place] # (Auto) 0.34 K/uL (0.11-0.59) 01/19/23 06:52 Eos # (Auto) 0.25 K/uL (0-0.50) 01/19/23 06:52 Baso # (Auto) 0.06 K/uL (0-0.2) 01/19/23 06:52 Immature Gran # (Auto) 0.01 K/uL (0.01-0.20) 01/19/23 06:52 ESR 41 mm/hr (0-20) H 01/18/23 18:58 Sodium 134 mmol/L (136-145) L 01/19/23 06:52 Potassium 3.8 mmol/L (3.5-5.1) 01/19/23 06:52 Chloride 103 mmol/L (98-107) 01/19/23 06:52 Carbon Dioxide 26 mmol/L (21-32) 01/19/23 06:52 Anion Gap 5 (3-11) 01/19/23 06:52 BUN 9 mg/dl (6-23) 01/19/23 06:52 Creatinine 0.76 mg/dl (0.6-1.4) 01/19/23 06:52 Est Cr Clr Drug Dosing 113.9 ml/min 01/19/23 06:52 Est GFR ( Amer) 113.3 ml/min 01/19/23 06:52 Est GFR (Non-Af Amer) 97.8 ml/min 01/19/23 06:52 BUN/Creatinine Ratio 11.8 (10-20) 01/19/23 06:52 Glucose 77 mg/dl (70-99(Fasting)) 01/19/23 06:52 Estimat Average Glucose 117 mg/dl 01/19/23 06:52 Hemoglobin A1c 5.7 % (4.5-5.6) H 01/19/23 06:52 Calcium 8.4 mg/dl (8.6-10.3) L 01/19/23 06:52 Phosphorus 2.8 mg/dl (2.5-4.9) 01/18/23 18:58 Magnesium 2.0 mg/dl (1.7-2.4) 01/18/23 18:58 Total Bilirubin 0.7 mg/dl (0.2-1.0) 01/18/23 18:58 AST 17 U/L (13-39) 01/18/23 18:58 ALT 12 U/L (7-52) 01/18/23 18:58 Alkaline Phosphatase 55 U/L (34-104) 01/18/23 18:58 Total Creatine Kinase 81 U/L (30-223) 01/18/23 18:58 Troponin I High Sens 7.0 pg/ml (0-20) 01/18/23 18:58 C-Reactive Protein 1.32 mg/dl (0-0.5) H 01/18/23 18:58 Total Protein 6.6 gm/dl (6.0-8.3) 01/18/23 18:58 Albumin 3.9 gm/dl (3.4-5.0) 01/18/23 18:58 Globulin 2.7 gm/dl (2.5-4.0) 01/18/23 18:58 Albumin/Globulin Ratio 1.4 (0.9-2) 01/18/23 18:58 Triglycerides 130 mg/dl (0-150) 01/19/23 06:52 Cholesterol 161 mg/dl (0-200) 01/19/23 06:52 LDL Cholesterol, Calc 95 mg/dl 01/19/23 06:52 VLDL Cholesterol, Calc 26 mg/dl (0-30) 01/19/23 06:52 HDL Cholesterol 40 mg/dl 01/19/23 06:52 Cholesterol/HDL Ratio 4.0 (0-5) 01/19/23 06:52 Lipase 14 U/L (11-82) 01/18/23 18:58 Vitamin B12 284 pg/ml (180-914) 01/19/23 06:52 TSH 3.295 uIu/ml (0.300-4.500) 01/18/23 18:58 Urine Color Yellow 01/19/23 03:40 Urine Appearance Clear (Clear) 01/19/23 03:40 Urine pH 6.5 (4.5-7.5) 01/19/23 03:40 Ur Specific [place] 1.025 (1.000-1.030) 01/19/23 03:40 Urine Protein Negative (Negative) 01/19/23 03:40 Urine Glucose (UA) Negative (Negative) 01/19/23 03:40 Urine Ketones Negative (Negative) 01/19/23 03:40 Urine Blood Negative (Negative) 01/19/23 03:40 Urine Nitrite Negative (Negative) 01/19/23 03:40 Urine Bilirubin Negative (Negative) 01/19/23 03:40 Urine Urobilinogen Negative (Negative) 01/19/23 03:40 Ur Leukocyte Esterase Negative (Negative) 01/19/23 03:40 Lyme Disease IgG Ab Negative (Negative) 01/18/23 18:58 Lyme Disease IgM Ab Equivocal (Negative) A 01/18/23 18:58 SARS-CoV-2, RNA, NAAT NEGATIVE (NEGATIVE) 01/18/23 19:20 Impressions Chest X-Ray 01/18/23 18:35 XR chest 1V portable CLINICAL HISTORY: Chest pain, nonspecific TECHNIQUE: Single frontal radiograph of the chest was obtained. Comparison: Comparison is made to chest radiograph 11/06/2021 FINDINGS: No lines and tubes are seen. The cardiomediastinal silhouette is normal. The lungs are clear. No evidence of pleural effusion or pneumothorax. IMPRESSION: No acute chest disease. ACT 112: Negative or not required by law. Electronically signed by: Anand Angel M.D. 01/18/2023 7:17 PM Chest CTA 01/18/23 18:56 Exam(s): CTA CHEST W/WO Contrast IV Amt: 106 ml optiray 320 EXAM: CT Angiography Chest Without and With Intravenous Contrast CLINICAL HISTORY: Reason for exam: left face/arm, b/l lip, BLE numbness, CP, HTN. TECHNIQUE: Axial computed tomographic angiography images of the chest without and with intravenous contrast. CTDI is 18.21 mGy and DLP is 715.21 mGy-cm. Automated exposure control was utilized for the study. A dose lowering technique was utilized adhering to the principles of ALARA. MIP reconstructed images were created and reviewed. CONTRAST: Patient received 106 ml optiray 320 of IV contrast COMPARISON: No relevant prior studies available. FINDINGS: Pulmonary arteries: No central PE. Suboptimal bolus timing for evaluation of the distal pulmonary arteries. Aorta: No acute aortic syndrome. Lungs: Atelectasis in the lungs. Pleural space: Unremarkable. Heart: Moderate coronary artery calcifications. Bones/joints: No acute fracture. Soft tissues: Unremarkable. Lymph nodes: Unremarkable. IMPRESSION: No acute findings in the visualized arteries of the chest. Electronically signed by: Connor Robles MD 01/18/23 21:[address] 01/18/23 18:56 Exam(s): CT HEAD Without Contrast EXAM: CT Head Without Intravenous Contrast CLINICAL HISTORY: Reason for exam: left face/arm, b/l lip, BLE numbness, CP, HTN. TECHNIQUE: Axial computed tomography images of the head/brain without intravenous contrast. CTDI is 36.79 mGy and DLP is 624.41 mGy-cm. Automated exposure control was utilized for the study. A dose lowering technique was utilized adhering to the principles of ALARA. COMPARISON: Head CT 01/14/2023 FINDINGS: Brain: No hemorrhage, extra-axial fluid collection, mass effect, or edema. Mild chronic microvascular ischemic changes. Ventricles: Unremarkable. Bones/joints: Unremarkable. No fracture. Soft tissues: Unremarkable. Sinuses: No acute sinusitis. Mastoid air cells: Unremarkable as visualized. IMPRESSION: 1. No acute intracranial abnormality. Electronically signed by: Connor Robles MD 01/18/23 21:29 PM Head CTA 01/18/23 18:56 Exam(s): CTA HEAD With Contrast IV Amt: 106 ml optiray 320 EXAM: CT Angiography Head With Intravenous Contrast CLINICAL HISTORY: Reason for exam: left face/arm, b/l lip, BLE numbness, CP, HTN. TECHNIQUE: Axial computed tomographic angiography images of the head with intravenous contrast. Automated exposure control was utilized for the study. A dose lowering technique was utilized adhering to the principles of ALARA. MIP reconstructed images were created and reviewed. CONTRAST: Patient received 106 ml optiray 320 of IV contrast COMPARISON: No relevant prior studies available. FINDINGS: Right internal carotid artery: No acute findings. Intracranial segment is patent with no significant stenosis. No aneurysm. Right anterior cerebral artery: Unremarkable. No occlusion or significant stenosis. No aneurysm. Right middle cerebral artery: Unremarkable. No occlusion or significant stenosis. No aneurysm. Right posterior cerebral artery: Unremarkable. No occlusion or significant stenosis. No aneurysm. Right vertebral artery: Unremarkable as visualized. Left internal carotid artery: No acute findings. Intracranial segment is patent with no significant stenosis. No aneurysm. Left anterior cerebral artery: Unremarkable. No occlusion or significant stenosis. No aneurysm. Left middle cerebral artery: Unremarkable. No occlusion or significant stenosis. No aneurysm. Left posterior cerebral artery: Unremarkable. No occlusion or significant stenosis. No aneurysm. Left vertebral artery: Unremarkable as visualized. Basilar artery: Unremarkable. No occlusion or significant stenosis. No aneurysm. IMPRESSION: Normal head CTA. Electronically signed by: Connor Robles MD 01/18/23 21:38 PM Neck CTA 01/18/23 18:56 Exam(s): CTA NECK With Contrast IV Amt: 106 ml optiray 320 EXAM: CT Angiography Neck With Intravenous Contrast CLINICAL HISTORY: Reason for exam: left face/arm, b/l lip, BLE numbness, CP, HTN. TECHNIQUE: Routine carotid CT angiography protocol was performed with intravenous contrast. NASCET criteria using the distal ICAs for comparison were used for evaluation of stenoses. CTDI is 15.02 mGy and DLP is 987.86 mGy-cm. Automated exposure control was utilized for the study. A dose lowering technique was utilized adhering to the principles of ALARA. MIP reconstructed images were created and reviewed. CONTRAST: Patient received 106 ml optiray 320 of IV contrast COMPARISON: None. FINDINGS: VASCULATURE: Right common carotid artery: Unremarkable. No occlusion or significant stenosis. No dissection. Right internal carotid artery: Atheromatous plaque within the proximal right internal carotid artery causing 40-50 % stenosis. No dissection. Right external carotid artery: Unremarkable. No occlusion. Right vertebral artery: Unremarkable. No occlusion or significant stenosis. No dissection. Left common carotid artery: Unremarkable. No occlusion or significant stenosis. No dissection. Left internal carotid artery: Unremarkable. Extracranial segment is patent with no occlusion or significant stenosis. No dissection. Left external carotid artery: Unremarkable. No occlusion. Left vertebral artery: Unremarkable. No occlusion or significant stenosis. No dissection. NECK: Bones/joints: Unremarkable. Soft tissues: Unremarkable. Lung apices: Clear. CAROTID STENOSIS REFERENCE USING NASCET CRITERIA: % ICA stenosis = (1 - narrowest ICA diameter/diameter of distal cervical ICA) x 100. Mild - <50% stenosis. Moderate - 50-69% stenosis. Severe - 70-94% stenosis. Near occlusion - 95-99% stenosis. Occluded - 100% stenosis. IMPRESSION: Atheromatous plaque within the proximal right internal carotid artery causing 40-50 % stenosis. Electronically signed by: Connor Robles MD 01/18/23 21:36 PM Brain MRI 01/19/23 01:01 MR brain wo/w con CLINICAL HISTORY: stroke like symptoms , left facial numbness and tingling TECHNIQUE: Multiplanar and multisequence MR images of the brain were obtained prior to and following administration of gadolinium contrast. Comparison: Comparison is made to MRI brain 07/18/2016 FINDINGS: No abnormal restricted diffusion is identified. Foci of T2 and FLAIR hyperintensity are noted in the paraventricular areas consistent with chronic small vessel ischemic disease. Ex vacuo ventriculomegaly and sulcal enlargement is noted compatible with diffuse volume loss. No mass or abnormal enhancement is seen. There is no mass effect or midline shift. There is no evidence of acute intraparenchymal hemorrhage. No extra axial fluid collections are seen. The corpus callosum, pituitary gland, and cerebellar tonsils appear grossly unremarkable. Flow voids of the major intracranial arterial vessels are identified. The imaged portions of the paranasal sinuses, mastoid air cells, and orbits are unremarkable. Within limits of a nondedicated exam, previously noted pituitary adenoma is not seen on today's exam. IMPRESSION: No acute abnormality and in particular no evidence of acute infarct. ACT 112: Negative or not required by law. Electronically signed by: Anand Angel M.D. 01/19/2023 8:59 AM
[2023-01-19] MEDS: HEPARIN SOD 5,000 UNIT/0.5 ML VIAL SQ SCH ×2 (14:21→21:54)
--- NOTE | 2023-01-19 14:44 | XRay Report ---
XR KUB/Abdomen 1 view CLINICAL HISTORY: coresafe tube placement TECHNIQUE: 1 view of the abdomen was obtained. Comparison: Comparison is made to CT abdomen pelvis 05/28/2020 FINDINGS: Enteric tube terminates below the diaphragm. Degenerative changes are seen in the visualized skeleton . The bowel gas pattern is nonobstructive. A moderate amount of stool is noted within the large bowel . IMPRESSION: Satisfactory position of enteric tube. ACT 112: Negative or not required by law. Electronically signed by: Anand Angel M.D. 01/19/2023 2:43 PM
[2023-01-19] MEDS ORDERED: FIBERSOURCE HN 1.2 CAL 1000 ML BAG NG SCH (15:45)
[2023-01-19] MEDS: TUBE FEEDING WATER FLUSH NG SCH ×2 (16:13→21:39)
[2023-01-19] MEDS: AZITHROMYCIN 500 MG in DEXTROSE 5% 250 ML IV SCH (18:18)
[2023-01-19] MEDS ORDERED: AMPICILLIN/SULBACTAM SOD 3,000 MG in 0.9 % SODIUM CHLORIDE 100 ML IV SCH (21:00)
[2023-01-19] MEDS ORDERED: methylPREDNISolone 50 MG in SYRINGE 0 ML IV STA (21:01)
[2023-01-19] MEDS: cefTRIAXone SODIUM 2,000 MG in DEXTROSE 5% 50 ML IV SCH (21:53)
[2023-01-19] MEDS: metroNIDAZOLE 500 MG/100 ML BAG IV SCH (21:53)
[2023-01-19] MEDS ORDERED: Nursing to Pharmacy Communication SCH (22:45)
[2023-01-20] MEDS: metroNIDAZOLE 500 MG/100 ML BAG IV SCH (04:51)
[2023-01-20] MEDS: LEVOTHYROXINE SODIUM 25 MCG TABLET PO SCH (05:10)
[2023-01-20] MEDS: HEPARIN SOD 5,000 UNIT/0.5 ML VIAL SQ SCH ×2 (05:18→14:02)
--- NOTE | 2023-01-20 06:36 | XRay Report ---
XR chest 1V portable CLINICAL HISTORY: Hypoxia. COMPARISON STUDY: Chest radiograph and chest CT January 18, 2023. FINDINGS: The tip of the feeding tube projects in the proximal body of the stomach. There is no pneum othorax or pleural effusion. Interstitial thickening and mild right lung airspace opacities. Cardiome diastinal silhouette is stable. IMPRESSION: 1. Interval development of interstitial thickening and mild right lung airspace opacities. This favor s pulmonary edema. An infectious process could appear similar. 2. Tip of nasogastric tube projects over the body of the stomach. The tube could be advanced before o btaining a KUB. ACT 112: Negative or not required by law. Electronically signed by: Bucky Viera M.D. 01/20/2023 6:35 AM
[2023-01-20 07:06] LABS: Hematocrit (blood only) 38.2 % (42.0-52.0); Hemoglobin 13.2 g/dl (14.0-18.0); Mean Corpuscular Hemoglobin 30.3 pg (25.0-34.0); Mean Corpuscular Hgb Conc 34.6 g/dL (32.0-36.0); Mean Corpuscular Volume 87.8 fL (80.0-100.0); Platelet Count 168 K/uL (130-400); RDW Coefficient of Variation 12.5 % (11.5-14.5); RDW Standard Deviation 40.3 fL (36.4-46.3); Red Blood Count 4.35 M/uL (4.70-6.10); White Blood Count 9.56 K/ul (4.8-10.8)
[2023-01-20 07:26] LABS: BUN Creatinine Ratio 17.9 (10-20); Calcium 8.7 mg/dl (8.6-10.3); Creatinine Clr Calc Pharmacy 91.1 ml/min; Est GFR (Non-African American) 85.4 ml/min; Potassium 4.1 mmol/L (3.5-5.1)
[2023-01-20 07:33] LABS: Echinocytes 2+; Immature Granulocytes # (auto) 0.02 K/uL (0.01-0.20); Immature Granulocytes % (auto) 0.2 %; Lymphocytes # (auto) 0.47 K/uL (1.2-3.4); Lymphocytes % (auto) 4.9 %; Monocytes # (auto) 0.33 K/uL (0.11-0.59); Monocytes % (auto) 3.5 %; Neutrophils # (auto) 8.74 K/uL (1.40-6.50); Neutrophils % (auto) 91.4 %
[2023-01-20] MEDS: ALBUT/IPRATROP 3MG/0.5MG NEB 3 ML VIAL NEB SCH ×2 (07:54→19:15)
[2023-01-20] MEDS: AZITHROMYCIN 500 MG in DEXTROSE 5% 250 ML IV SCH (09:20)
--- NOTE | 2023-01-20 09:32 | CT Scan Report ---
CT OF THE HEAD WITHOUT CONTRAST CLINICAL HISTORY: Confusion. Recent stroke. COMPARISON STUDY: Head CT and CTA of the head January 18, 2023 and MRI the brain January 19, 2023. CT DOSE: 625.80 mGy.cm TECHNIQUE: Helical axial images of the head were obtained without IV contrast. Automated exposure con trol was utilized for the study. A dose lowering technique was utilized adhering to the principles o f ALARA. FINDINGS: No acute intracranial hemorrhage, midline shift or mass effect is present. White matter hyp odensities are unchanged and suggest small vessel disease. The ventricular system is unremarkable. Th e basal cisterns are patent. No extra-axial collections are present. There are no findings to suggest acute dural sinus thrombosis or acute territorial infarct. The small right lateral medullary infarct on MRI of January 19, [address] visualized [address] CT. No significant calvarial abnormalities are present. Visualized portions of the sinuses and mastoid air cells are clear. IMPRESSION: 1. No acute intracranial hemorrhage or mass effect. 2. Small right lateral medullary infarct on MRI of January 19, [address]. ACT 112: Negative or not required by law. Electronically signed by: Bucky Viera M.D. 01/20/2023 9:30 AM
[2023-01-20] MEDS: LOSARTAN POTASSIUM 25 MG TAB PO SCH (09:43)
[2023-01-20] MEDS: ASPIRIN 81 MG ECTAB PO SCH (09:43)
[2023-01-20] MEDS: CLOPIDOGREL BISULFATE 75 MG TAB PO SCH (09:43)
[2023-01-20] MEDS: PANTOprazole 40 MG TAB PO SCH (09:43)
[2023-01-20] MEDS: ATORVASTATIN 40 MG TAB PO SCH (09:43)
[2023-01-20] MEDS: CHOLECALCIFEROL 1,000 UNITS 25 MCG TAB PO SCH (09:43)
[2023-01-20] MEDS: METOPROLOL SUCC 25MG EXT REL TAB PO SCH (09:43)
--- NOTE | 2023-01-20 12:16 | Hospitalist Progress Note ---
Date of Service January 20, 2023 Assessment & Plan (1) Stroke, Wallenberg's syndrome: (2) Dysphagia: Plan: Patient presents to the hospital with dizziness, gait instability, dysphagia and left sided numbness after chiropractic neck manipulation on Thursday of last week (6 days ago). Presented to the ED on 01/14 for dysphagia and was discharged after negative vessel studies. 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 He has significant oropharyngeal dysphagia secondary to stroke. Discussed with speech; patient will need alternative means of nutrition. GI consulted for possible PEG tube placement. Discussion done with patient at bedside. Patient to be started on dual antiplatelets (aspirin and Plavix for 21 days. Aspirin monotherapy after it.) and Lipitor after placement of PEG tube. Continue PT OT evaluation Ophthalmology follow-up after discharge (3) Hypertension: Plan: Continue on losartan and metoprolol (4) Hypothyroidism: Plan: Continue levothyroxine Plan Discussed with his son Alvin over the phone. Answered question/queries. DVT prophylaxis heparin Full code Disposition-PT OT eval done; will need rehab. Awaiting GI evaluation for PEG tube placement. Admission and Anticipated Discharge Date Admission Date: January 18, 2023 Subjective Overnight, patient desaturated after aspiration events. He needed increasing level of oxygen. When seen in a.m., patient was awake alert oriented x3. He denied any shortness of breath. He continued to have cough with sputum. Review of Systems Review of Systems: All systems reviewed & are unremarkable except as noted in Subjective Physical Exam Physical Exam: Constitutional: WD/WN, vitals as above, NAD, sitting up in bed, pleasant, conversing easily Respiratory: Bilateral coarse crackles. Cardiovascular: RRR, no murmur, no edema Vessels: no JVD or carotid bruit Chest: normal inspection of chest Abdomen: normal bowel sounds, soft, nontender, no hepatosplenomegaly Musculoskeletal: no cyanosis or clubbing, extremities motor strength 5/5 Skin: no rashes, warm and dry normal turgor Neurologic: Awake alert oriented x3. 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 Left ptosis. No nystagmus. Strength symmetrical 5/5. Sensation intact. Yiecer-ok-aiav, vdvh-if-[id number] dysmetric on the left Psychiatric: A+Ox3, euthymic affect Lymphatic: no cervical or axillary lymphadenopathy : deferred Results & Data Results & Data Vital Signs (Past 12 Hours) Vital Signs Temp Pulse Pulse Resp BP Pulse Ox Pulse Ox 01/20/23 07:54 60 20 95 01/20/23 07:53 36.6 C 55 L 16 118/65 93 01/20/23 05:00 36.9 C 82 20 120/68 92 01/20/23 02:08 98 H 01/20/23 01:01 97 O2 Del Method O2 Del Method O2 Flow Rate O2 Flow Rate 01/20/23 07:54 Oxymask 5 01/20/23 07:53 Oxymask 4.5 01/20/23 05:00 Oxymask 6 01/20/23 02:08 01/20/23 01:01 Oxymask 5 Laboratory Results Laboratory Results WBC 9.56 K/ul (4.8-10.8) 01/20/23 06:47 RBC 4.35 M/uL (4.70-6.10) L 01/20/23 06:47 Hgb 13.2 g/dl (14.0-18.0) L 01/20/23 06:47 Hct 38.2 % (42.0-52.0) L 01/20/23 06:47 MCV 87.8 fL (80.0-100.0) 01/20/23 06:47 MCH 30.3 pg (25.0-34.0) 01/20/23 06:47 MCHC 34.6 g/dL (32.0-36.0) 01/20/23 06:47 RDW Std Deviation 40.3 fL (36.4-46.3) 01/20/23 06:47 RDW Coeff of Dane 12.5 % (11.5-14.5) 01/20/23 06:47 Plt Count 168 K/uL (130-400) 01/20/23 06:47 MPV 11.0 fL (9.4-12.4) 01/20/23 06:47 Immature Gran % (Auto) 0.2 % 01/20/23 06:47 Neut % (Auto) 91.4 % 01/20/23 06:47 Lymph % (Auto) 4.9 % 01/20/23 06:47 Nolan % (Auto) 3.5 % 01/20/23 06:47 Eos % (Auto) 0.0 % 01/20/23 06:47 Baso % (Auto) 0.0 % 01/20/23 06:47 Neut # (Auto) 8.74 K/uL (1.40-6.50) H 01/20/23 06:47 Lymph # (Auto) 0.47 K/uL (1.2-3.4) L 01/20/23 06:47 Nolan # (Auto) 0.33 K/uL (0.11-0.59) 01/20/23 06:47 Eos # (Auto) 0.00 K/uL (0-0.50) 01/20/23 06:47 Baso # (Auto) 0.00 K/uL (0-0.2) 01/20/23 06:47 Immature Gran # (Auto) 0.02 K/uL (0.01-0.20) 01/20/23 06:47 Echinocytes 2+ 01/20/23 06:47 ESR 41 mm/hr (0-20) H 01/18/23 18:58 Sodium 129 mmol/L (136-145) L 01/20/23 06:47 Potassium 4.1 mmol/L (3.5-5.1) 01/20/23 06:47 Chloride 96 mmol/L (98-107) L 01/20/23 06:47 Carbon Dioxide 24 mmol/L (21-32) 01/20/23 06:47 Anion Gap 9 (3-11) 01/20/23 06:47 BUN 17 mg/dl (6-23) 01/20/23 06:47 Creatinine 0.95 mg/dl (0.6-1.4) 01/20/23 06:47 Est Cr Clr Drug Dosing 91.1 ml/min 01/20/23 06:47 Est GFR ( Amer) 99.0 ml/min 01/20/23 06:47 Est GFR (Non-Af Amer) 85.4 ml/min 01/20/23 06:47 BUN/Creatinine Ratio 17.9 (10-20) 01/20/23 06:47 Glucose 108 mg/dl (70-99(Fasting)) H 01/20/23 06:47 POC Glucose 129 mg/dl (70-99) H 01/20/23 11:43 Estimat Average Glucose 117 mg/dl 01/19/23 06:52 Hemoglobin A1c 5.7 % (4.5-5.6) H 01/19/23 06:52 Calcium 8.7 mg/dl (8.6-10.3) 01/20/23 06:47 Phosphorus 2.8 mg/dl (2.5-4.9) 01/18/23 18:58 Magnesium 2.0 mg/dl (1.7-2.4) 01/18/23 18:58 Total Bilirubin 0.7 mg/dl (0.2-1.0) 01/18/23 18:58 AST 17 U/L (13-39) 01/18/23 18:58 ALT 12 U/L (7-52) 01/18/23 18:58 Alkaline Phosphatase 55 U/L (34-104) 01/18/23 18:58 Total Creatine Kinase 81 U/L (30-223) 01/18/23 18:58 Troponin I High Sens 7.0 pg/ml (0-20) 01/18/23 18:58 C-Reactive Protein 1.32 mg/dl (0-0.5) H 01/18/23 18:58 Total Protein 6.6 gm/dl (6.0-8.3) 01/18/23 18:58 Albumin 3.9 gm/dl (3.4-5.0) 01/18/23 18:58 Globulin 2.7 gm/dl (2.5-4.0) 01/18/23 18:58 Albumin/Globulin Ratio 1.4 (0.9-2) 01/18/23 18:58 Triglycerides 130 mg/dl (0-150) 01/19/23 06:52 Cholesterol 161 mg/dl (0-200) 01/19/23 06:52 LDL Cholesterol, Calc 95 mg/dl 01/19/23 06:52 VLDL Cholesterol, Calc 26 mg/dl (0-30) 01/19/23 06:52 HDL Cholesterol 40 mg/dl 01/19/23 06:52 Cholesterol/HDL Ratio 4.0 (0-5) 01/19/23 06:52 Lipase 14 U/L (11-82) 01/18/23 18:58 Vitamin B12 284 pg/ml (180-914) 01/19/23 06:52 TSH 3.295 uIu/ml (0.300-4.500) 01/18/23 18:58 Urine Color Yellow 01/19/23 03:40 Urine Appearance Clear (Clear) 01/19/23 03:40 Urine pH 6.5 (4.5-7.5) 01/19/23 03:40 Ur Specific [place] 1.025 (1.000-1.030) 01/19/23 03:40 Urine Protein Negative (Negative) 01/19/23 03:40 Urine Glucose (UA) Negative (Negative) 01/19/23 03:40 Urine Ketones Negative (Negative) 01/19/23 03:40 Urine Blood Negative (Negative) 01/19/23 03:40 Urine Nitrite Negative (Negative) 01/19/23 03:40 Urine Bilirubin Negative (Negative) 01/19/23 03:40 Urine Urobilinogen Negative (Negative) 01/19/23 03:40 Ur Leukocyte Esterase Negative (Negative) 01/19/23 03:40 Lyme Disease IgG Ab Negative (Negative) 01/18/23 18:58 Lyme Disease IgM Ab Equivocal (Negative) A 01/18/23 18:58 SARS-CoV-2, RNA, NAAT NEGATIVE (NEGATIVE) 01/18/23 19:20 Impressions Chest CTA 01/18/23 18:56 Exam(s): CTA CHEST W/WO Contrast IV Amt: 106 ml optiray 320 EXAM: CT Angiography Chest Without and With Intravenous Contrast CLINICAL HISTORY: Reason for exam: left face/arm, b/l lip, BLE numbness, CP, HTN. TECHNIQUE: Axial computed tomographic angiography images of the chest without and with intravenous contrast. CTDI is 18.21 mGy and DLP is 715.21 mGy-cm. Automated exposure control was utilized for the study. A dose lowering technique was utilized adhering to the principles of ALARA. MIP reconstructed images were created and reviewed. CONTRAST: Patient received 106 ml optiray 320 of IV contrast COMPARISON: No relevant prior studies available. FINDINGS: Pulmonary arteries: No central PE. Suboptimal bolus timing for evaluation of the distal pulmonary arteries. Aorta: No acute aortic syndrome. Lungs: Atelectasis in the lungs. Pleural space: Unremarkable. Heart: Moderate coronary artery calcifications. Bones/joints: No acute fracture. Soft tissues: Unremarkable. Lymph nodes: Unremarkable. IMPRESSION: No acute findings in the visualized arteries of the chest. Electronically signed by: Connor Robles MD 01/18/23 21:34 PM Head CTA 01/18/23 18:56 Exam(s): CTA HEAD With Contrast IV Amt: 106 ml optiray 320 EXAM: CT Angiography Head With Intravenous Contrast CLINICAL HISTORY: Reason for exam: left face/arm, b/l lip, BLE numbness, CP, HTN. TECHNIQUE: Axial computed tomographic angiography images of the head with intravenous contrast. Automated exposure control was utilized for the study. A dose lowering technique was utilized adhering to the principles of ALARA. MIP reconstructed images were created and reviewed. CONTRAST: Patient received 106 ml optiray 320 of IV contrast COMPARISON: No relevant prior studies available. FINDINGS: Right internal carotid artery: No acute findings. Intracranial segment is patent with no significant stenosis. No aneurysm. Right anterior cerebral artery: Unremarkable. No occlusion or significant stenosis. No aneurysm. Right middle cerebral artery: Unremarkable. No occlusion or significant stenosis. No aneurysm. Right posterior cerebral artery: Unremarkable. No occlusion or significant stenosis. No aneurysm. Right vertebral artery: Unremarkable as visualized. Left internal carotid artery: No acute findings. Intracranial segment is patent with no significant stenosis. No aneurysm. Left anterior cerebral artery: Unremarkable. No occlusion or significant stenosis. No aneurysm. Left middle cerebral artery: Unremarkable. No occlusion or significant stenosis. No aneurysm. Left posterior cerebral artery: Unremarkable. No occlusion or significant stenosis. No aneurysm. Left vertebral artery: Unremarkable as visualized. Basilar artery: Unremarkable. No occlusion or significant stenosis. No aneurysm. IMPRESSION: Normal head CTA. Electronically signed by: Connor Robles MD 01/18/23 21:38 PM Neck CTA 01/18/23 18:56 Exam(s): CTA NECK With Contrast IV Amt: 106 ml optiray 320 EXAM: CT Angiography Neck With Intravenous Contrast CLINICAL HISTORY: Reason for exam: left face/arm, b/l lip, BLE numbness, CP, HTN. TECHNIQUE: Routine carotid CT angiography protocol was performed with intravenous contrast. NASCET criteria using the distal ICAs for comparison were used for evaluation of stenoses. CTDI is 15.02 mGy and DLP is 987.86 mGy-cm. Automated exposure control was utilized for the study. A dose lowering technique was utilized adhering to the principles of ALARA. MIP reconstructed images were created and reviewed. CONTRAST: Patient received 106 ml optiray 320 of IV contrast COMPARISON: None. FINDINGS: VASCULATURE: Right common carotid artery: Unremarkable. No occlusion or significant stenosis. No dissection. Right internal carotid artery: Atheromatous plaque within the proximal right internal carotid artery causing 40-50 % stenosis. No dissection. Right external carotid artery: Unremarkable. No occlusion. Right vertebral artery: Unremarkable. No occlusion or significant stenosis. No dissection. Left common carotid artery: Unremarkable. No occlusion or significant stenosis. No dissection. Left internal carotid artery: Unremarkable. Extracranial segment is patent with no occlusion or significant stenosis. No dissection. Left external carotid artery: Unremarkable. No occlusion. Left vertebral artery: Unremarkable. No occlusion or significant stenosis. No dissection. NECK: Bones/joints: Unremarkable. Soft tissues: Unremarkable. Lung apices: Clear. CAROTID STENOSIS REFERENCE USING NASCET CRITERIA: % ICA stenosis = (1 - narrowest ICA diameter/diameter of distal cervical ICA) x 100. Mild - <50% stenosis. Moderate - 50-69% stenosis. Severe - 70-94% stenosis. Near occlusion - 95-99% stenosis. Occluded - 100% stenosis. IMPRESSION: Atheromatous plaque within the proximal right internal carotid artery causing 40-50 % stenosis. Electronically signed by: Connor Robles MD 01/18/23 21:36 PM Brain MRI 01/19/23 01:01 MR brain wo/w con CLINICAL HISTORY: stroke like symptoms , left facial numbness and tingling TECHNIQUE: Multiplanar and multisequence MR images of the brain were obtained prior to and following administration of gadolinium contrast. Comparison: Comparison is made to MRI brain 07/18/2016 FINDINGS: No abnormal restricted diffusion is identified. Foci of T2 and FLAIR hyperintensity are noted in the paraventricular areas consistent with chronic small vessel ischemic disease. Ex vacuo ventriculomegaly and sulcal enlargement is noted compatible with diffuse volume loss. No mass or abnormal enhancement is seen. There is no mass effect or midline shift. There is no evidence of acute intraparenchymal hemorrhage. No extra axial fluid collections are seen. The corpus callosum, pituitary gland, and cerebellar tonsils appear grossly unremarkable. Flow voids of the major intracranial arterial vessels are identified. The imaged portions of the paranasal sinuses, mastoid air cells, and orbits are unremarkable. Within limits of a nondedicated exam, previously noted pituitary adenoma is not seen on today's exam. IMPRESSION: No acute abnormality and in particular no evidence of acute infarct. ACT 112: Negative or not required by law. Electronically signed by: Anand Angel M.D. 01/19/2023 8:59 AM KUB X-Ray 01/19/23 13:51 XR KUB/Abdomen 1 view CLINICAL HISTORY: coresafe tube placement TECHNIQUE: 1 view of the abdomen was obtained. Comparison: Comparison is made to CT abdomen pelvis 05/28/2020 FINDINGS: Enteric tube terminates below the diaphragm. Degenerative changes are seen in the visualized skeleton. The bowel gas pattern is nonobstructive. A moderate amount of stool is noted within the large bowel. IMPRESSION: Satisfactory position of enteric tube. ACT 112: Negative or not required by law. Electronically signed by: Anand Angel M.D. 01/19/2023 2:43 PM Chest X-Ray 01/19/23 20:54 XR chest 1V portable CLINICAL HISTORY: Hypoxia. COMPARISON STUDY: Chest radiograph and chest CT January 18, 2023. FINDINGS: The tip of the feeding tube projects in the proximal body of the stomach. There is no pneumothorax or pleural effusion. Interstitial thickening and mild right lung airspace opacities. Cardiomediastinal silhouette is stable. IMPRESSION: 1. Interval development of interstitial thickening and mild right lung airspace opacities. This favors pulmonary edema. An infectious process could appear similar. 2. Tip of nasogastric tube projects over the body of the stomach. The tube could be advanced before obtaining a KUB. ACT 112: Negative or not required by law. Electronically signed by: Bucky Viera M.D. 01/20/2023 6:[address] 01/20/23 07:50 CT OF THE HEAD WITHOUT CONTRAST CLINICAL HISTORY: Confusion. Recent stroke. COMPARISON STUDY: Head CT and CTA of the head January 18, 2023 and MRI the brain January 19, 2023. CT DOSE: 625.80 mGy.cm TECHNIQUE: Helical axial images of the head were obtained without IV contrast. Automated exposure control was utilized for the study. A dose lowering technique was utilized adhering to the principles of ALARA. FINDINGS: No acute intracranial hemorrhage, midline shift or mass effect is present. White matter hypodensities are unchanged and suggest small vessel disease. The ventricular system is unremarkable. The basal cisterns are patent. No extra-axial collections are present. There are no findings to suggest acute dural sinus thrombosis or acute territorial infarct. The small right lateral medullary infarct on MRI of January 19, [address] CT. No significant calvarial abnormalities are present. Visualized portions of the sinuses and mastoid air cells are clear. IMPRESSION: 1. No acute intracranial hemorrhage or mass effect. 2. Small right lateral medullary infarct on MRI of January 19, [address]. ACT 112: Negative or not required by law. Electronically signed by: Bucky Viera M.D. 01/20/2023 9:30 AM
[2023-01-20 13:33] LABS: BUN Creatinine Ratio 19.4 (10-20); Calcium 8.5 mg/dl (8.6-10.3); Creatinine Clr Calc Pharmacy 88.3 ml/min; Est GFR (African American) 95.4 ml/min; Est GFR (Non-African American) 82.3 ml/min
--- NOTE | 2023-01-20 14:35 | Gastrointestinal Consultation ---
Date of Consultation January 20, 2023 Assessment & Plan (1) Dysphagia: Oropharyngeal dysphagia. (2) Stroke, Wallenberg's syndrome: Plan 1. Hold Plavix (already held since NPO), hold SQ Heparin 2. Keep NPO 3. PEG tube insertion procedure discussed including pros/cons and that it does not always prevent aspiration as feedings can reflux up and into the lungs. Pt would like to go forward w a PEG. 4. Plan for EGD w PEG tomorrow by Dr. Bradley. Supervising Physician Co-Signing Physician Notes I performed a history and physical examination of the patient today, including specifically on physical exam - soft abdomen. I have discussed the patient's management with the advanced practitioner. Please refer to the nurse practitioner's note for the documented findings and plan of care. EGD with PEG Patient was explained in detail regarding risks, benefits, limitations and alternatives of the above endoscopic procedure. Risks of intravenous sedation used for procedure were also explained. Risks include, but not limited to perforation, bleeding, infection, respiratory distress, cardiac arrest and . Patient is also aware about the possibility of missed lesion. Patient's q uestions were answered. The patient verbalized understanding the information and agreed to undergo the procedure. History of Present Illness Reason for Consultation: peg tube placement. Oropharyngeal dysphagia Requesting Physician: Dr. Mendez Attending Physician: Everett Mendez MD History of Present Illness Mr. Ming Khalil is a 62 yr old male pt of Martita Urbina PA-C w a hx of ST- elevated [place] in October 2021, S/P drug-eluting stent to mid LAD, hypophysitis with secondary adrenal insufficiency, hypogonadism, hypothyroidism, prediabetes, venous insufficiency, HTN, GERD, DVT presented to the ED for difficulty swallowing. Symptoms began after chiropractic manipulation on . He had presented to the ED on the , evaluated and discharged returning yesterday at which time, neurology eval consistent w "lateral medullary infarct/wallenberg syndrome thought secondary to R vertebral artery dissection secondary to chiropractic neck manipulation. He was evaluated by speech pathology yesterday and today both times w several episodes of aspiration of his liquids and his own secretions, despite coaching on swallowing techniques. A core safe NG was placed yesterday but pt pulled it out during the night and refuses to have it placed again. Speech pathology recommends a PEG. He is currently on ASA/Plavix. He is also receiving Heparin 5k units SQ every 8hrs. He is on Ceftriaxone, Azithromax, prednisone for suggestion of RML pneumonia on CXR yesterday. He is saturating at 92% on 4L of O2 by [place]. He is awake, alert, able to talk though struggles to manage his secretions while he tries to talk, barely able to speak a sentence w/o stopping to cough secretions up to the back of his tongue then uses the Yankar to suction. He tells me that he wants a PEG tube and asks why the NG was placed as he found that very uncomfortable. Allergies Allergy/AdvReac Type Severity Reaction Status Date / Time lisinopril Allergy Unknown dry cough Verified 01/14/23 22:43 doxycycline Allergy Hives Verified 01/14/23 22:44 Home Medications Medication Instructions Recorded Confirmed Type losartan 25 mg tablet 25 mg PO DAILY 05/28/20 01/14/23 History metoprolol succinate 25 mg 25 mg PO DAILY 05/28/20 01/14/23 History tablet,extended release 24 hr levothyroxine 25 mcg tablet 25 mcg PO QAM 11/06/21 01/14/23 History aspirin 81 mg tablet,delayed 81 mg PO QAM 30 days #30 tabs 11/08/21 01/14/23 Rx release atorvastatin 40 mg tablet 40 mg PO QAM 01/14/23 01/14/23 History cholecalciferol (vitamin D3) 50 50 mcg PO QAM 01/14/23 01/14/23 History mcg (2,000 unit) capsule omeprazole 20 mg capsule,delayed 20 mg PO QAM 01/14/23 01/14/23 History release Patient History Medical History (Updated 01/21/23 @ 10:58 by Lilo Stinson MD) Acute non-ST elevation myocardial infarction (NSTEMI) Arm paresthesia, left Borderline results on serologic testing for Lyme disease Carotid stenosis, right Dysphagia Dysphagia Encounter for pre-operative examination Family history of blood clots Hypertension Hypertension Hypothyroidism Left facial numbness Stroke, Wallenberg's syndrome Stroke-like symptoms Surgical History H/O vasectomy Social History Smoking Status: Current every day smoker Tobacco Type: Cigarettes Hx Alcohol Use: Yes Alcohol type: beer Hx Substance Use: No Preferred Language: [place]an Communication Ability: Effective Lead Developer Required: No Beliefs That Will Affect Care: None marital status: Current Living Situation: Alone How many Children do You have: 4 Feels Safe at Home: Yes Safety Concerns: Feels Safe At This Time Assistive Devices: Glasses Review of Systems Review of Systems: ROS: Gen: +Weakness, denies fever Eyes: No eye redness, or pain, no recent vision changes Resp: + cough, mild SOB relieved w O2 Cardio: No palpitations/irregular beats, no chest pain GI: +difficulty swallowing; No abdominal pain, no nausea/vomiting : Denies pain on urination Skin: No jaundice, itching or new rashes M/S: Denies red/swollen joint Physical Exam Constitutional: well developed, well nourished, + ill appearing and cooperative uncomfortable w nearly constant throat coughing/gagging and attempts at throat clearing. ENMT: Ears: no hearing impairment and no external ear abnormality Nose: no external nose abnormality Mouth: + oropharynx abnormality (visible saliva and secretions in the mouth/pharynx; uvula rises mid line) Neck: trachea midline, no thyromegaly Respiratory: Cough; bilat lower lobe crackles and rhonchi present throughout. . Cardiovascular: RRR, no murmur, no edema Gastrointestinal (Abdomen): normal bowel sounds, soft, nontender, no hepatosplenomegaly Musculoskeletal: mild right arm/leg weakness Skin: no rashes, warm and dry Neurologic: awake; not confused slightly garbled speach Psychiatric: Orientation: alert Motor Behavior: n tremor Cognition: recent memory grossly intact, remote memory grossly intact, attention grossly intact and language grossly intact Lymphatic: no cervical or axillary lymphadenopathy Results & Data Vital Signs (Past 12 Hours) Vital Signs Temp Pulse Pulse Resp BP Pulse Ox O2 Del Method 01/20/23 08:00 60 01/20/23 12:16 36.6 C 56 L 16 103/62 92 Nasal Cannula 01/20/23 07:54 60 20 95 Oxymask 01/20/23 07:53 36.6 C 55 L 16 118/65 93 Oxymask 01/20/23 05:00 36.9 C 82 20 120/68 92 Oxymask O2 Flow Rate 01/20/23 08:00 05/23/23 12:16 4 01/20/23 07:54 5 01/20/23 07:53 4.5 01/20/23 05:00 6 Laboratory Results WBC 9.56, Hb 13.2, Hct 38.2, Plts 168, Na 129, K 4.0, Cl 95, CO2 25, BUN 19, Cr 0.98, glucose 108. Diagnostic Findings Multiple Head/Neck CTs and brain MRIs reviewed. See diagnostic imaging reports. CXR yesterday 1. Interval development of interstitial thickening and mild right lung airspace opacities. This favors pulmonary edema. An infectious process could appear similar. 2. Tip of nasogastric tube projects over the body of the stomach. The tube could be advanced before obtaining a KUB.
[2023-01-20] MEDS: D5W AND NSS 1,000 ML IV SCH (15:54)
[2023-01-20] MEDS: SODIUM CHLOR 7% 4 ML NEB NEB SCH (19:15)
[2023-01-20] MEDS: cefTRIAXone SODIUM 2,000 MG in DEXTROSE 5% 50 ML IV SCH (21:11)
[2023-01-21 02:52] LABS: 18KDIGG Band NON-REACTIVE; 23KDIGG Band NON-REACTIVE; 23KDIGM Band NON-REACTIVE; 28KDIGG Band NON-REACTIVE; 30KDIGG Band NON-REACTIVE; 39KDIGG Band NON-REACTIVE; 39KDIGM Band NON-REACTIVE; 41KDIGG Band REACTIVE; 41KDIGM Band NON-REACTIVE; 45KDIGG Band NON-REACTIVE; 58KDIGG Band NON-REACTIVE; 66KDIGG Band NON-REACTIVE; 93KDIGG Band NON-REACTIVE; Lyme Antibodies, WB IgG NEGATIVE (NEGATIVE); Lyme Antibodies, WB IgM NEGATIVE (NEGATIVE)
[2023-01-21] MEDS ORDERED: ACETAMINOPHEN 1,000 MG/100 ML VIAL IV PRN (03:56)
[2023-01-21] MEDS: D5W AND NSS 1,000 ML IV SCH ×2 (04:05→17:42)
[2023-01-21 04:11] LABS: Urine Potassium 44.8 mmol/L
[2023-01-21 04:19] LABS: Creatinine Urine Random 99.1 mg/dl
[2023-01-21] MEDS: LEVOTHYROXINE SODIUM 25 MCG TABLET PO SCH (05:26)
[2023-01-21 06:52] LABS: Basophils # (auto) 0.01 K/uL (0-0.2); Basophils % (auto) 0.1 %; Eosinophils # (auto) 0.03 K/uL (0-0.50); Eosinophils % (auto) 0.4 %; Hematocrit (blood only) 38.2 % (42.0-52.0); Hemoglobin 13.3 g/dl (14.0-18.0); Immature Granulocytes # (auto) 0.01 K/uL (0.01-0.20); Immature Granulocytes % (auto) 0.1 %; Lymphocytes # (auto) 0.92 K/uL (1.2-3.4); Lymphocytes % (auto) 13.2 %; Mean Corpuscular Hemoglobin 30.2 pg (25.0-34.0); Mean Corpuscular Hgb Conc 34.8 g/dL (32.0-36.0); Mean Corpuscular Volume 86.8 fL (80.0-100.0); Mean Platelet Volume 11.8 fL (9.4-12.4); Monocytes # (auto) 0.54 K/uL (0.11-0.59); Monocytes % (auto) 7.7 %; Neutrophils # (auto) 5.48 K/uL (1.40-6.50); Neutrophils % (auto) 78.5 %; Platelet Count 176 K/uL (130-400); RDW Coefficient of Variation 12.7 % (11.5-14.5); RDW Standard Deviation 40.4 fL (36.4-46.3); White Blood Count 6.99 K/ul (4.8-10.8)
[2023-01-21 07:11] LABS: BUN Creatinine Ratio 25.3 (10-20); Calcium 8.6 mg/dl (8.6-10.3); Creatinine Clr Calc Pharmacy 99.5 ml/min; Est GFR (African American) 107.2 ml/min; Est GFR (Non-African American) 92.5 ml/min; Potassium 3.6 mmol/L (3.5-5.1)
[2023-01-21] MEDS: ALBUT/IPRATROP 3MG/0.5MG NEB 3 ML VIAL NEB SCH ×2 (07:41→19:04)
[2023-01-21] MEDS: SODIUM CHLOR 7% 4 ML NEB NEB SCH ×2 (07:41→19:04)
[2023-01-21] MEDS: CHOLECALCIFEROL 1,000 UNITS 25 MCG TAB PO SCH (07:55)
[2023-01-21] MEDS: ATORVASTATIN 40 MG TAB PO SCH (07:55)
[2023-01-21] MEDS: ASPIRIN 81 MG ECTAB PO SCH (07:55)
[2023-01-21] MEDS: LOSARTAN POTASSIUM 25 MG TAB PO SCH (07:55)
[2023-01-21] MEDS: PANTOprazole 40 MG TAB PO SCH (07:56)
[2023-01-21] MEDS: METOPROLOL SUCC 25MG EXT REL TAB PO SCH (07:56)
[2023-01-21] MEDS: AZITHROMYCIN 500 MG in DEXTROSE 5% 250 ML IV SCH (09:01)
--- NOTE | 2023-01-21 10:59 | Anesthesiology Consultation ---
Date of Service January 21, 2023 Assessment & Plan (1) Encounter for pre-operative examination: Chart Review Chart Review: Acceptable Risk for Surgery and Patient NOT seen in Pre Admission Testing History Surgery Operation Date: 01/21/23 07:00 Proposed Procedures p Esophagogastroduodenoscopy with PEG - Flash Bradley MD Operation Date: 01/21/23 10:45 Proposed Procedures p Esophagogastroduodenoscopy - Flash Bradley MD Operation Date: 01/21/23 16:45 Proposed Procedures p Esophagogastroduodenoscopy Dr Bradley with Peg Tube - Flash Bradley MD Height/Weight Height: 6 ft 1 in Weight: 89.2 kg Allergies Allergy/AdvReac Type Severity Reaction Status Date / Time lisinopril Allergy Unknown dry cough Verified 01/14/23 22:43 doxycycline Allergy Hives Verified 01/14/23 22:44 Medications Home Medications Medication Instructions Recorded Confirmed Last Taken losartan 25 mg tablet 25 mg PO DAILY 05/28/20 01/14/23 11/06/21 08:00 metoprolol succinate 25 mg 25 mg PO DAILY 05/28/20 01/14/23 11/06/21 08:00 tablet,extended release 24 hr levothyroxine 25 mcg tablet 25 mcg PO QAM 11/06/21 01/14/23 11/06/21 08:00 aspirin 81 mg tablet,delayed 81 mg PO QAM 30 days #30 tabs 11/08/21 01/14/23 Unknown release atorvastatin 40 mg tablet 40 mg PO QAM 01/14/23 01/14/23 Unknown cholecalciferol (vitamin D3) 50 50 mcg PO QAM 01/14/23 01/14/23 Unknown mcg (2,000 unit) capsule omeprazole 20 mg capsule,delayed 20 mg PO QAM 01/14/23 01/14/23 Unknown release Active Medications Generic Name Dose Route Start Last Admin Trade Name Freq PRN Reason Stop Dose Admin Albuterol 3 ml 01/20/23 07:30 01/21/23 07:41 Albut/Ipratrop 3mg/0.5mg Neb 3 Ml Vial NEB 02/19/23 07:29 3 ml BIDR OSVALDO Administration Protocol Aspirin 81 mg 01/19/23 09:00 01/21/23 07:55 Aspirin 81 Mg Ectab PO 02/18/23 08:59 Not Given QAM OSVALDO Atorvastatin Calcium 40 mg 01/19/23 09:00 01/21/23 07:55 Atorvastatin 40 Mg Tab PO 02/18/23 08:59 Not Given QAM OSVALDO Clopidogrel Bisulfate 75 mg 01/19/23 10:00 01/20/23 09:43 Clopidogrel Bisulfate 75 Mg Tab PO 02/18/23 09:59 Not Given QAM OSVALDO Guaifenesin/Dextromethorphan 5 ml 01/19/23 11:27 01/19/23 18:08 Guaifenesin/Dextrom Syrup 100mg/10mg 5ml Udc PO 02/18/23 11:26 5 ml Q6H PRN Administration Cough Heparin Sodium (Porcine) 5,000 units 01/19/23 14:00 01/20/23 14:02 Heparin Sod 5,000 Unit/0.5 Ml Vial SQ 02/18/23 13:59 5,000 units Q8 OSVALDO Administration Ceftriaxone Sodium 2,000 mg/ 70 mls @ 100 mls/hr 01/19/23 22:00 01/20/23 22:02 Dextrose IV 01/29/23 21:59 Infused Q24H OSVALDO Infusion Protocol Azithromycin 500 mg/ Dextrose 255 mls @ 125 mls/hr 01/19/23 17:45 01/21/23 09:01 IV 01/26/23 17:44 125 mls/hr DAILY OSVALDO Administration Dextrose/Sodium Chloride 1,000 mls @ 80 mls/hr 01/20/23 15:30 01/21/23 04:05 D5w And Nss IV 02/19/23 15:29 80 mls/hr .[id number] OSVALDO Administration Acetaminophen 1,000 mg in 100 mls @ 400 mls/hr 01/21/23 03:56 01/21/23 05:23 Ofirmev IV 01/24/23 03:55 Infused Q8H PRN Infusion Pain or Fever Levothyroxine Sodium 25 mcg 01/19/23 06:30 01/21/23 05:26 Levothyroxine Sodium 25 Mcg Tablet PO 02/18/23 06:29 Not Given DAILYBB OSVALDO Losartan Potassium 25 mg 01/19/23 09:00 01/21/23 07:55 Losartan Potassium 25 Mg Tab PO 02/18/23 08:59 Not Given DAILY OSVALDO Metoprolol Succinate 25 mg 01/19/23 09:00 01/21/23 07:56 Metoprolol Succ 25mg Ext Rel Tab PO 02/18/23 08:59 Not Given DAILY OSVALDO Pantoprazole Sodium 40 mg 01/19/23 09:00 01/21/23 07:56 Pantoprazole 40 Mg Tab PO 02/18/23 08:59 Not Given QAM OSVALDO Sodium Chloride 4 ml 01/20/23 19:00 01/21/23 07:41 Sodium Chlor 7% 4 Ml Neb NEB 02/19/23 18:59 4 ml BIDR OSVALDO Administration Sterile Water 120 ml 01/19/23 15:45 01/19/23 21:39 Tube Feeding Water Flush NG 02/18/23 15:44 120 ml Q4H OSVALDO Administration Vitamin D 2,000 units 01/19/23 09:00 01/21/23 07:55 Cholecalciferol 1,000 Units 25 Mcg Tab PO 02/18/23 08:59 Not Given QAM OSVALDO Past Medical History Medical History (Updated 01/21/23 @ 10:58 by Lilo Stinson MD) Acute non-ST elevation myocardial infarction (NSTEMI) Arm paresthesia, left Borderline results on serologic testing for Lyme disease Carotid stenosis, right Dysphagia Dysphagia Encounter for pre-operative examination Family history of blood clots Hypertension Hypertension Hypothyroidism Left facial numbness Stroke, Wallenberg's syndrome Stroke-like symptoms Past Surgical History Surgical History H/O vasectomy Social History Smoking Status: Current every day smoker tobacco type: cigarettes Hx Alcohol Use: Yes Alcohol type: beer alcohol intake frequency: holidays/special occasions only Hx Substance Use: No substance use type: does not use Physical Exam Vital Signs Last Vital Signs Temp 36.2 C L 01/21/23 08:15 Pulse 56 L 01/21/23 08:15 Resp 16 01/21/23 08:15 BP 127/79 01/21/23 08:15 Pulse Ox 100 01/21/23 08:15 O2 Del Method Nebulizer 01/21/23 08:15 O2 Flow Rate 4 01/21/23 07:48 Testing Laboratory Results 01/21/23 05:46 01/21/23 05:46 Hemoglobin A1c 5.7 % (4.5-5.6) H 01/19/23 06:52 Urine Color Yellow 01/19/23 03:40 Urine Appearance Clear (Clear) 01/19/23 03:40 Urine pH 6.5 (4.5-7.5) 01/19/23 03:40 Ur Specific Bronson 1.025 (1.000-1.030) 01/19/23 03:40 Urine Protein Negative (Negative) 01/19/23 03:40 Urine Glucose (UA) Negative (Negative) 01/19/23 03:40 Urine Ketones Negative (Negative) 01/19/23 03:40 Urine Nitrite Negative (Negative) 01/19/23 03:40 Ur Leukocyte Esterase Negative (Negative) 01/19/23 03:40 01/21/23 01/21/23 06:19 00:01 POC Glucose 99 111 H
--- NOTE | 2023-01-21 11:07 | History & Physical Bridge Note ---
Date of Service January 21, 2023 History & Physical Bridge Note I have examined the patient, reviewed the History & Physical and in the interval since the performance of the History & Physical I have noted the following changes of clinical significance: no changes noted
[2023-01-21] MEDS ORDERED: KETAMINE 50 MG/5 ML SYRINGE ONE (11:36)
[2023-01-21] MEDS ORDERED: PROPOFOL IV EMULSION 10 MG/ML 20 ML VIAL IV ONE (11:36)
[2023-01-21] MEDS ORDERED: LIDOCAINE 2% 2 ML VIAL/AMP(20MG/ML) INFIL ONE (11:36)
--- NOTE | 2023-01-21 12:08 | Hospitalist Progress Note ---
Date of Service January 21, 2023 Assessment & Plan (1) Stroke, Wallenberg's syndrome: (2) Dysphagia: Plan: Patient presents to the hospital with dizziness, gait instability, dysphagia and left sided numbness after chiropractic neck manipulation on Thursday of last week (6 days ago). Presented to the ED on 01/14 for dysphagia and was discharged after negative vessel studies. 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 He has significant oropharyngeal dysphagia secondary to stroke. Discussed with speech; patient will need alternative means of nutrition. GI consulted for possible PEG tube placement. Discussion done with patient at bedside. GI consulted; PEG tube placement done on January 21, 2023. GI recommends to hold Plavix for 4 days. Continue aspirin and Lipitor Nutrition consult Continue PT OT while inpatient. Case management on board for rehab. Currently on D5 NS prevent hypoglycemia. Ophthalmology follow-up after discharge (3) Acute hypoxemic respiratory failure: Plan: On the night of January 20, 2023; patient aspirated and desaturated to less than 90% saturation in room air. RR greater than 22. Suctioning done. NG tube was taken out Continue on airway clearance therapy with DuoNeb and hypertonic saline Currently on ceftriaxone and azithromycin. Provide 5-day course Airway clearance therapy with flutter valve. (4) Hypertension: Plan: At home, on losartan and metoprolol. Currently holding as patient is n.p.o. (5) Hypothyroidism: Plan: On levothyroxine at home. Currently holding as patient is n.p.o. Plan DVT prophylaxis heparin Full code Disposition-PT OT eval done; will need rehab. PEG tube placed. We will start feeding tomorrow. Likely discharge to rehab in 2 to 3 days. Admission and Anticipated Discharge Date Admission Date: January 18, 2023 Subjective Patient seen and examined at bedside. He continues to have increasing cough and is requiring suctioning. Telemetry shows normal sinus rhythm. Plan for PEG placement today. Review of Systems Review of Systems: All systems reviewed & are unremarkable except as noted in Subjective Physical Exam Physical Exam: Constitutional: WD/WN, vitals as above, NAD, sitting up in bed, pleasant, conversing easily Respiratory: Bilateral coarse crackles. Improved from previous day. Cardiovascular: RRR, no murmur, no edema Vessels: no JVD or carotid bruit Chest: normal inspection of chest Abdomen: normal bowel sounds, soft, nontender, no hepatosplenomegaly Musculoskeletal: no cyanosis or clubbing, extremities motor strength 5/5 Skin: no rashes, warm and dry normal turgor Neurologic: Awake alert oriented x3. 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 Left ptosis. No nystagmus. Strength symmetrical 5/5. Sensation intact. Iqsrys-sa-khel, qqlz-ec-liih dysmetric on the left Psychiatric: A+Ox3, euthymic affect Lymphatic: no cervical or axillary lymphadenopathy : deferred Results & Data Results & Data Vital Signs (Past 12 Hours) Vital Signs Temp Pulse Pulse Resp BP BP Pulse Ox 01/21/23 11:08 36.1 C L 62 16 113/78 100 01/21/23 08:15 36.2 C L 56 L 16 127/79 100 01/21/23 07:48 01/21/23 07:41 63 18 98 01/21/23 05:51 62 01/21/23 03:42 36.4 C L 64 16 108/70 94 01/21/23 00:57 67 O2 Del Method O2 Flow Rate 01/21/23 11:08 Nasal Cannula 4 01/21/23 08:15 Nebulizer 01/21/23 07:48 Nasal Cannula 4 01/21/23 07:41 Nasal Cannula 5 01/21/23 05:51 01/21/23 03:42 Nasal Cannula 4 01/21/23 00:57 Laboratory Results Laboratory Results WBC 6.99 K/ul (4.8-10.8) 01/21/23 05:46 RBC 4.40 M/uL (4.70-6.10) L 01/21/23 05:46 Hgb 13.3 g/dl (14.0-18.0) L 01/21/23 05:46 Hct 38.2 % (42.0-52.0) L 01/21/23 05:46 MCV 86.8 fL (80.0-100.0) 01/21/23 05:46 MCH 30.2 pg (25.0-34.0) 01/21/23 05:46 MCHC 34.8 g/dL (32.0-36.0) 01/21/23 05:46 RDW Std Deviation 40.4 fL (36.4-46.3) 01/21/23 05:46 RDW Coeff of Dane 12.7 % (11.5-14.5) 01/21/23 05:46 Plt Count 176 K/uL (130-400) 01/21/23 05:46 MPV 11.8 fL (9.4-12.4) 01/21/23 05:46 Immature Gran % (Auto) 0.1 % 01/21/23 05:46 Neut % (Auto) 78.5 % 01/21/23 05:46 Lymph % (Auto) 13.2 % 01/21/23 05:46 [place] % (Auto) 7.7 % 01/21/23 05:46 Eos % (Auto) 0.4 % 01/21/23 05:46 Baso % (Auto) 0.1 % 01/21/23 05:46 Neut # (Auto) 5.48 K/uL (1.40-6.50) 01/21/23 05:46 Lymph # (Auto) 0.92 K/uL (1.2-3.4) L 01/21/23 05:46 [place] # (Auto) 0.54 K/uL (0.11-0.59) 01/21/23 05:46 Eos # (Auto) 0.03 K/uL (0-0.50) 01/21/23 05:46 Baso # (Auto) 0.01 K/uL (0-0.2) 01/21/23 05:46 Immature Gran # (Auto) 0.01 K/uL (0.01-0.20) 01/21/23 05:46 Echinocytes 2+ 01/20/23 06:47 ESR 41 mm/hr (0-20) H 01/18/23 18:58 Sodium 132 mmol/L (136-145) L 01/21/23 05:46 Potassium 3.6 mmol/L (3.5-5.1) 01/21/23 05:46 Chloride 99 mmol/L (98-107) 01/21/23 05:46 Carbon Dioxide 24 mmol/L (21-32) 01/21/23 05:46 Anion Gap 9 (3-11) 01/21/23 05:46 BUN 22 mg/dl (6-23) 01/21/23 05:46 Creatinine 0.87 mg/dl (0.6-1.4) 01/21/23 05:46 Est Cr Clr Drug Dosing 99.5 ml/min 01/21/23 05:46 Est GFR ( Amer) 107.2 ml/min 01/21/23 05:46 Est GFR (Non-Af Amer) 92.5 ml/min 01/21/23 05:46 BUN/Creatinine Ratio 25.3 (10-20) H 01/21/23 05:46 Glucose 97 mg/dl (70-99(Fasting)) 01/21/23 05:46 POC Glucose 99 mg/dl (70-99) 01/21/23 06:19 Estimat Average Glucose 117 mg/dl 01/19/23 06:52 Hemoglobin A1c 5.7 % (4.5-5.6) H 01/19/23 06:52 Calcium 8.6 mg/dl (8.6-10.3) 01/21/23 05:46 Phosphorus 2.8 mg/dl (2.5-4.9) 01/18/23 18:58 Magnesium 2.0 mg/dl (1.7-2.4) 01/18/23 18:58 Total Bilirubin 0.7 mg/dl (0.2-1.0) 01/18/23 18:58 AST 17 U/L (13-39) 01/18/23 18:58 ALT 12 U/L (7-52) 01/18/23 18:58 Alkaline Phosphatase 55 U/L (34-104) 01/18/23 18:58 Total Creatine Kinase 81 U/L (30-223) 01/18/23 18:58 Troponin I High Sens 7.0 pg/ml (0-20) 01/18/23 18:58 C-Reactive Protein 1.32 mg/dl (0-0.5) H 01/18/23 18:58 Total Protein 6.6 gm/dl (6.0-8.3) 01/18/23 18:58 Albumin 3.9 gm/dl (3.4-5.0) 01/18/23 18:58 Globulin 2.7 gm/dl (2.5-4.0) 01/18/23 18:58 Albumin/Globulin Ratio 1.4 (0.9-2) 01/18/23 18:58 Triglycerides 130 mg/dl (0-150) 01/19/23 06:52 Cholesterol 161 mg/dl (0-200) 01/19/23 06:52 LDL Cholesterol, Calc 95 mg/dl 01/19/23 06:52 VLDL Cholesterol, Calc 26 mg/dl (0-30) 01/19/23 06:52 HDL Cholesterol 40 mg/dl 01/19/23 06:52 Cholesterol/HDL Ratio 4.0 (0-5) 01/19/23 06:52 Lipase 14 U/L (11-82) 01/18/23 18:58 Vitamin B12 284 pg/ml (180-914) 01/19/23 06:52 TSH 3.295 uIu/ml (0.300-4.500) 01/18/23 18:58 Urine Color Yellow 01/19/23 03:40 Urine Appearance Clear (Clear) 01/19/23 03:40 Urine pH 6.5 (4.5-7.5) 01/19/23 03:40 Ur Specific [place] 1.025 (1.000-1.030) 01/19/23 03:40 Urine Protein Negative (Negative) 01/19/23 03:40 Urine Glucose (UA) Negative (Negative) 01/19/23 03:40 Urine Ketones Negative (Negative) 01/19/23 03:40 Urine Blood Negative (Negative) 01/19/23 03:40 Urine Nitrite Negative (Negative) 01/19/23 03:40 Urine Bilirubin Negative (Negative) 01/19/23 03:40 Urine Urobilinogen Negative (Negative) 01/19/23 03:40 Ur Leukocyte Esterase Negative (Negative) 01/19/23 03:40 Urine Osmolality 535 mOsm/kg (500-800) 01/21/23 03:52 Ur Random Creatinine 99.1 mg/dl 01/21/23 03:52 Urine Sodium 32 mmol/L 01/21/23 03:52 Urine Potassium 44.8 mmol/L 01/21/23 03:52 Urine Chloride 31 mmol/L 01/21/23 03:52 Lyme Disease IgG Ab Negative (Negative) 01/18/23 18:58 Lyme IgG (Western Blot) NEGATIVE (NEGATIVE) 01/18/23 18:58 Lyme IgG 18 kDa Band NON-REACTIVE 01/18/23 18:58 Lyme IgG 23 kDa Band NON-REACTIVE 01/18/23 18:58 Lyme IgG 28 kDa Band NON-REACTIVE 01/18/23 18:58 Lyme IgG 30 kDa Band NON-REACTIVE 01/18/23 18:58 Lyme IgG 39 kDa Band NON-REACTIVE 01/18/23 18:58 Lyme IgG 41 kDa Band REACTIVE A 01/18/23 18:58 Lyme IgG 45 kDa Band NON-REACTIVE 01/18/23 18:58 Lyme IgG 58 kDa Band NON-REACTIVE 01/18/23 18:58 Lyme IgG 66 kDa Band NON-REACTIVE 01/18/23 18:58 Lyme IgG 93 kDa Band NON-REACTIVE 01/18/23 18:58 Lyme IgM Ab (WB) NEGATIVE (NEGATIVE) 01/18/23 18:58 Lyme Disease IgM Ab Equivocal (Negative) A 01/18/23 18:58 Lyme IgM 23 kDa Band NON-REACTIVE 01/18/23 18:58 Lyme IgM 39 kDa Band NON-REACTIVE 01/18/23 18:58 Lyme IgM 41 kDa Band NON-REACTIVE 01/18/23 18:58 SARS-CoV-2, RNA, NAAT NEGATIVE (NEGATIVE) 01/18/23 19:20 Impressions Chest CTA 01/18/23 18:56 Exam(s): CTA CHEST W/WO Contrast IV Amt: 106 ml optiray 320 EXAM: CT Angiography Chest Without and With Intravenous Contrast CLINICAL HISTORY: Reason for exam: left face/arm, b/l lip, BLE numbness, CP, HTN. TECHNIQUE: Axial computed tomographic angiography images of the chest without and with intravenous contrast. CTDI is 18.21 mGy and DLP is 715.21 mGy-cm. Automated exposure control was utilized for the study. A dose lowering technique was utilized adhering to the principles of ALARA. MIP reconstructed images were created and reviewed. CONTRAST: Patient received 106 ml optiray 320 of IV contrast COMPARISON: No relevant prior studies available. FINDINGS: Pulmonary arteries: No central PE. Suboptimal bolus timing for evaluation of the distal pulmonary arteries. Aorta: No acute aortic syndrome. Lungs: Atelectasis in the lungs. Pleural space: Unremarkable. Heart: Moderate coronary artery calcifications. Bones/joints: No acute fracture. Soft tissues: Unremarkable. Lymph nodes: Unremarkable. IMPRESSION: No acute findings in the visualized arteries of the chest. Electronically signed by: Connor Robles MD 01/18/23 21:34 PM Head CTA 01/18/23 18:56 Exam(s): CTA HEAD With Contrast IV Amt: 106 ml optiray 320 EXAM: CT Angiography Head With Intravenous Contrast CLINICAL HISTORY: Reason for exam: left face/arm, b/l lip, BLE numbness, CP, HTN. TECHNIQUE: Axial computed tomographic angiography images of the head with intravenous contrast. Automated exposure control was utilized for the study. A dose lowering technique was utilized adhering to the principles of ALARA. MIP reconstructed images were created and reviewed. CONTRAST: Patient received 106 ml optiray 320 of IV contrast COMPARISON: No relevant prior studies available. FINDINGS: Right internal carotid artery: No acute findings. Intracranial segment is patent with no significant stenosis. No aneurysm. Right anterior cerebral artery: Unremarkable. No occlusion or significant stenosis. No aneurysm. Right middle cerebral artery: Unremarkable. No occlusion or significant stenosis. No aneurysm. Right posterior cerebral artery: Unremarkable. No occlusion or significant stenosis. No aneurysm. Right vertebral artery: Unremarkable as visualized. Left internal carotid artery: No acute findings. Intracranial segment is patent with no significant stenosis. No aneurysm. Left anterior cerebral artery: Unremarkable. No occlusion or significant stenosis. No aneurysm. Left middle cerebral artery: Unremarkable. No occlusion or significant stenosis. No aneurysm. Left posterior cerebral artery: Unremarkable. No occlusion or significant stenosis. No aneurysm. Left vertebral artery: Unremarkable as visualized. Basilar artery: Unremarkable. No occlusion or significant stenosis. No aneurysm. IMPRESSION: Normal head CTA. Electronically signed by: Connor Robles MD 01/18/23 21:38 PM Neck CTA 01/18/23 18:56 Exam(s): CTA NECK With Contrast IV Amt: 106 ml optiray 320 EXAM: CT Angiography Neck With Intravenous Contrast CLINICAL HISTORY: Reason for exam: left face/arm, b/l lip, BLE numbness, CP, HTN. TECHNIQUE: Routine carotid CT angiography protocol was performed with intravenous contrast. NASCET criteria using the distal ICAs for comparison were used for evaluation of stenoses. CTDI is 15.02 mGy and DLP is 987.86 mGy-cm. Automated exposure control was utilized for the study. A dose lowering technique was utilized adhering to the principles of ALARA. MIP reconstructed images were created and reviewed. CONTRAST: Patient received 106 ml optiray 320 of IV contrast COMPARISON: None. FINDINGS: VASCULATURE: Right common carotid artery: Unremarkable. No occlusion or significant stenosis. No dissection. Right internal carotid artery: Atheromatous plaque within the proximal right internal carotid artery causing 40-50 % stenosis. No dissection. Right external carotid artery: Unremarkable. No occlusion. Right vertebral artery: Unremarkable. No occlusion or significant stenosis. No dissection. Left common carotid artery: Unremarkable. No occlusion or significant stenosis. No dissection. Left internal carotid artery: Unremarkable. Extracranial segment is patent with no occlusion or significant stenosis. No dissection. Left external carotid artery: Unremarkable. No occlusion. Left vertebral artery: Unremarkable. No occlusion or significant stenosis. No dissection. NECK: Bones/joints: Unremarkable. Soft tissues: Unremarkable. Lung apices: Clear. CAROTID STENOSIS REFERENCE USING NASCET CRITERIA: % ICA stenosis = (1 - narrowest ICA diameter/diameter of distal cervical ICA) x 100. Mild - <50% stenosis. Moderate - 50-69% stenosis. Severe - 70-94% stenosis. Near occlusion - 95-99% stenosis. Occluded - 100% stenosis. IMPRESSION: Atheromatous plaque within the proximal right internal carotid artery causing 40-50 % stenosis. Electronically signed by: Connor Robles MD 01/18/23 21:36 PM Brain MRI 01/19/23 01:01 MR brain wo/w con CLINICAL HISTORY: stroke like symptoms , left facial numbness and tingling TECHNIQUE: Multiplanar and multisequence MR images of the brain were obtained prior to and following administration of gadolinium contrast. Comparison: Comparison is made to MRI brain 07/18/2016 FINDINGS: No abnormal restricted diffusion is identified. Foci of T2 and FLAIR hyperintensity are noted in the paraventricular areas consistent with chronic small vessel ischemic disease. Ex vacuo ventriculomegaly and sulcal enlargement is noted compatible with diffuse volume loss. No mass or abnormal enhancement is seen. There is no mass effect or midline shift. There is no evidence of acute intraparenchymal hemorrhage. No extra axial fluid collections are seen. The corpus callosum, pituitary gland, and cerebellar tonsils appear grossly unremarkable. Flow voids of the major intracranial arterial vessels are identified. The imaged portions of the paranasal sinuses, mastoid air cells, and orbits are unremarkable. Within limits of a nondedicated exam, previously noted pituitary adenoma is not seen on today's exam. IMPRESSION: No acute abnormality and in particular no evidence of acute infarct. ACT 112: Negative or not required by law. Electronically signed by: Anand Angel M.D. 01/19/2023 8:59 AM KUB X-Ray 01/19/23 13:51 XR KUB/Abdomen 1 view CLINICAL HISTORY: coresafe tube placement TECHNIQUE: 1 view of the abdomen was obtained. Comparison: Comparison is made to CT abdomen pelvis 05/28/2020 FINDINGS: Enteric tube terminates below the diaphragm. Degenerative changes are seen in the visualized skeleton. The bowel gas pattern is nonobstructive. A moderate amount of stool is noted within the large bowel. IMPRESSION: Satisfactory position of enteric tube. ACT 112: Negative or not required by law. Electronically signed by: Anand Angel M.D. 01/19/2023 2:43 PM Chest X-Ray 01/19/23 20:54 XR chest 1V portable CLINICAL HISTORY: Hypoxia. COMPARISON STUDY: Chest radiograph and chest CT January 18, 2023. FINDINGS: The tip of the feeding tube projects in the proximal body of the stomach. There is no pneumothorax or pleural effusion. Interstitial thickening and mild right lung airspace opacities. Cardiomediastinal silhouette is stable. IMPRESSION: 1. Interval development of interstitial thickening and mild right lung airspace opacities. This favors pulmonary edema. An infectious process could appear similar. 2. Tip of nasogastric tube projects over the body of the stomach. The tube could be advanced before obtaining a KUB. ACT 112: Negative or not required by law. Electronically signed by: Bucky Viera M.D. 01/20/2023 6:[address] 01/20/23 07:50 CT OF THE HEAD WITHOUT CONTRAST CLINICAL HISTORY: Confusion. Recent stroke. COMPARISON STUDY: Head CT and CTA of the head January 18, 2023 and MRI the brain January 19, 2023. CT DOSE: 625.80 mGy.cm TECHNIQUE: Helical axial images of the head were obtained without IV contrast. Automated exposure control was utilized for the study. A dose lowering technique was utilized adhering to the principles of ALARA. FINDINGS: No acute intracranial hemorrhage, midline shift or mass effect is present. White matter hypodensities are unchanged and suggest small vessel disease. The ventricular system is unremarkable. The basal cisterns are patent. No extra-axial collections are present. There are no findings to suggest acute dural sinus thrombosis or acute territorial infarct. The small right lateral medullary infarct on MRI of January 19, [address] CT. No significant calvarial abnormalities are present. Visualized portions of the sinuses and mastoid air cells are clear. IMPRESSION: 1. No acute intracranial hemorrhage or mass effect. 2. Small right lateral medullary infarct on MRI of January 19, [address]. ACT 112: Negative or not required by law. Electronically signed by: Bucky Viera M.D. 01/20/2023 9:30 AM
--- NOTE | 2023-01-21 12:14 | GI REPORT ---
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 Estimated Blood Loss: Estimated blood loss: none. Procedure: Pre-Anesthesia Assessment: - Prior to the procedure, a History and Physical was performed, and patient medications, allergies and sensitivities were reviewed. The patient's tolerance of previous anesthesia was reviewed. - The risks and benefits of the procedure and the sedation options and risks were discussed with the patient. All questions were answered and informed consent was obtained. - Patient identification and proposed procedure were verified prior to the procedure by the physician and the nurse. The procedure was verified in the procedure room. - Pre-procedure physical examination revealed no contraindications to sedation. After obtaining informed consent, the endoscope was passed under direct vision. Throughout the procedure, the patient's blood pressure, pulse, and oxygen saturations were monitored continuously. The Endoscope was introduced through the mouth, and advanced to the second part of duodenum. The upper GI endoscopy was accomplished without difficulty. The patient tolerated the procedure well. Findings: The examined esophagus was normal. A small hiatal hernia was present. The entire examined stomach was normal. The patient was placed in the supine position for PEG placement. The stomach was insufflated to appose gastric and abdominal modi. A site was located in the body of the stomach with excellent transillumination and manual external pressure for placement. The abdominal wall was marked and prepped in a sterile manner. The trocar needle was introduced through the abdominal wall and into the stomach under direct endoscopic view. A snare was introduced through the endoscope and opened in the gastric lumen. The guide wire was passed through the trocar and into the open snare. The snare was closed around the guide wire. The endoscope and snare were removed, pulling the wire out through the mouth. A skin incision was made at the site of needle insertion. The externally removable 20 Fr Blaise-Cook gastrostomy tube was lubricated. The G-tube was tied to the guide wire and pulled through the mouth and into the stomach. The trocar needle was removed, and the gastrostomy tube was pulled out from the stomach through the skin. The external bumper was attached to the gastrostomy tube, and the tube was cut to remove the guide wire. The final position of the gastrostomy tube was confirmed by relook endoscopy, and skin marking noted to be 2.5 cm at the external bumper. The final tension and compression of the abdominal wall by the PEG tube and external bumper were checked and revealed that the bumper was moderately tight and mildly deforming the skin. The feeding tube was capped, and the tube site cleaned and dressed. The duodenal bulb and second portion of the duodenum were normal. Impression: - Normal esophagus. - Small hiatal hernia. - Normal stomach. - Normal duodenal bulb and second portion of the duodenum. - An externally removable PEG placement was successfully completed. - No specimens collected. Recommendation: - [facility]. - Please follow the post-PEG recommendations including: Nutrition consult for formula and volume, dry dressing only and may use PEG tomorrow for feedings. Flash Bradley MD 01/21/2023 12:14:33 PM This report has been signed electronically. Note Initiated On: 01/21/2023 11:35 AM Number of Addenda: 0 I attest to the content of the Intraoperative Record and orders documented therein, exceptions below {[id number]}
[2023-01-21] MEDS ORDERED: DEXAMETHASONE SOD INJ 4 MG/ML VIAL ONE (12:24)
--- NOTE | 2023-01-21 12:50 | Communication Note ---
Date of Service: January 21, 2023 Patient had PEG tube placement today. Please hold off on Plavix for 4 days.
--- NOTE | 2023-01-21 13:29 | Anesthesiology Progress Note ---
Date of Service January 21, 2023 Anesthesia Post Procedure Vital Signs Vital Signs: Temp Pulse Pulse Resp BP BP Pulse Ox 01/21/23 12:48 58 L 18 126/76 97 01/21/23 12:33 53 L 18 119/68 95 01/21/23 12:18 56 L 16 98/54 L 96 01/21/23 11:08 36.1 C L 62 16 113/78 100 01/21/23 08:15 36.2 C L 56 L 16 127/79 100 01/21/23 07:48 01/21/23 07:41 63 18 98 01/21/23 05:51 62 01/21/23 03:42 36.4 C L 64 16 108/70 94 01/21/23 00:57 67 01/20/23 22:57 36.3 C L 72 20 114/65 94 01/20/23 22:11 01/20/23 20:16 36.3 C L 66 18 114/67 95 01/20/23 19:15 66 22 88 L 01/20/23 16:12 55 L 01/20/23 15:19 36.6 C 59 L 16 105/66 95 O2 Del Method O2 Flow Rate 01/21/23 12:48 Room Air 01/21/23 12:33 Room Air 01/21/23 12:18 Room Air 01/21/23 11:08 Nasal Cannula 4 01/21/23 08:15 Nebulizer 01/21/23 07:48 Nasal Cannula 4 01/21/23 07:41 Nasal Cannula 5 01/21/23 05:51 01/21/23 03:42 Nasal Cannula 4 01/21/23 00:57 01/20/23 22:57 Nasal Cannula 4 01/20/23 22:11 Nasal Cannula 4 01/20/23 20:16 Nasal Cannula 4 01/20/23 19:15 Nasal Cannula 4 01/20/23 16:12 01/20/23 15:19 Nasal Cannula 4 Transfer of Care Handoff Completed per policy Notes Mental Status: alert / awake / arousable and participated in evaluation Patient Amnestic to Procedure: Yes Nausea / Vomiting: adequately controlled Pain: adequately controlled Airway Patency, RR, SpO2: stable & adequate BP & HR: stable & adequate Hydration State: stable & adequate Anesthetic Complications: no major complications apparent and Pt Satisfied with anesthetic care
[2023-01-21] MEDS: TUBE FEEDING WATER FLUSH NG SCH ×4 (20:10→20:21)
[2023-01-21] MEDS: cefTRIAXone SODIUM 2,000 MG in DEXTROSE 5% 50 ML IV SCH (21:18)
[2023-01-22] MEDS: D5W AND NSS 1,000 ML IV SCH (05:38)
[2023-01-22] MEDS: LEVOTHYROXINE SODIUM 25 MCG TABLET PO SCH (05:55)
[2023-01-22] MEDS: SODIUM CHLOR 7% 4 ML NEB NEB SCH ×2 (07:14→19:21)
[2023-01-22] MEDS: ALBUT/IPRATROP 3MG/0.5MG NEB 3 ML VIAL NEB SCH ×2 (07:24→19:21)
[2023-01-22 07:35] LABS: Hematocrit (blood only) 37.6 % (42.0-52.0); Hemoglobin 13.4 g/dl (14.0-18.0); Immature Granulocytes # (auto) 0.03 K/uL (0.01-0.20); Immature Granulocytes % (auto) 0.4 %; Lymphocytes # (auto) 0.84 K/uL (1.2-3.4); Lymphocytes % (auto) 12.4 %; Mean Corpuscular Hgb Conc 35.6 g/dL (32.0-36.0); Mean Platelet Volume 11.1 fL (9.4-12.4); Monocytes # (auto) 0.51 K/uL (0.11-0.59); Monocytes % (auto) 7.5 %; Neutrophils # (auto) 5.42 K/uL (1.40-6.50); Neutrophils % (auto) 79.7 %; Platelet Count 202 K/uL (130-400); RDW Coefficient of Variation 13.1 % (11.5-14.5); RDW Standard Deviation 41.3 fL (36.4-46.3); Red Blood Count 4.32 M/uL (4.70-6.10)
[2023-01-22 07:55] LABS: BUN Creatinine Ratio 18.8 (10-20); Calcium 8.7 mg/dl (8.6-10.3); Creatinine Clr Calc Pharmacy 108.2 ml/min; Est GFR (Non-African American) 95.7 ml/min; Potassium 4.4 mmol/L (3.5-5.1)
[2023-01-22] MEDS: ASPIRIN 81 MG ECTAB PO SCH (08:27)
[2023-01-22] MEDS: PANTOprazole 40 MG TAB PO SCH (08:27)
[2023-01-22] MEDS: METOPROLOL SUCC 25MG EXT REL TAB PO SCH (08:27)
[2023-01-22] MEDS: LOSARTAN POTASSIUM 25 MG TAB PO SCH (08:27)
[2023-01-22] MEDS: CHOLECALCIFEROL 1,000 UNITS 25 MCG TAB PO SCH (08:27)
[2023-01-22] MEDS: HEPARIN SOD 5,000 UNIT/0.5 ML VIAL SQ SCH ×2 (08:27→22:11)
[2023-01-22] MEDS: ATORVASTATIN 40 MG TAB PO SCH (08:27)
[2023-01-22] MEDS: AZITHROMYCIN 500 MG in DEXTROSE 5% 250 ML IV SCH (08:32)
--- NOTE | 2023-01-22 09:54 | Gastroenterology Progress Note ---
Date of Service January 22, 2023 Assessment & Plan (1) Status post insertion of percutaneous endoscopic gastrostomy (PEG) tube: Plan 1. OK to use the PEG for feedings and meds. Formula/amts etc per dietitian. 2. Wash/rinse PEG site gently daily. 3. GI will sign off. Please recall if questions. Admission and Anticipated Discharge Date Admission Date: January 18, 2023 Supervising Physician Co-Signing Physician Notes I performed a history and physical examination of the patient today, including specifically on physical exam - soft abdomen. I have discussed the patient's management with the advanced practitioner. Please refer to the nurse practitioner's note for the documented findings and plan of care. PEG intact and functioning. Recall GI if needed. Subjective 62 yr old male post EGD/PEG insertion day #1. Pt sitting up in bedside chair. Speech is clear, voice strong, able to clear his throat much better today though still needing to suction at time. Review of Systems Review of Systems: ROS: Gen: +Weakness - much improved, denies fever Eyes: No eye redness, or pain, no recent vision changes Resp: Denies CP/SOB, mild cough - much improved. Cardio: No palpitations/irregular beats, no chest pain GI: +difficulty swallowing; No abdominal pain, no nausea/vomiting : Denies pain on urination Skin: No jaundice, itching or new rashes M/S: Denies red/swollen joint Physical Exam Constitutional: well developed, well nourished, + ill appearing and cooperative ENMT: Ears: no hearing impairment and no external ear abnormality Nose: no external nose abnormality Neck: trachea midline, no thyromegaly Respiratory: Few fine crackles at bases, no rhonchi Cardiovascular: RRR, no murmur, no edema Gastrointestinal (Abdomen): normal bowel sounds, soft, nontender, no hepatosplenomegaly PEG tube site clean, dry w/o any bleeding or redness. The tube sits snug against the abdomen at #2, can be turned freely. Skin: no rashes, warm and dry Neurologic: awake; not confused Psychiatric: Orientation: alert Cognition: recent memory grossly intact, remote memory grossly intact, attention grossly intact and language grossly intact Lymphatic: no cervical or axillary lymphadenopathy Results & Data Vital Signs (Past 12 Hours) Vital Signs Temp Pulse Pulse Resp BP BP Pulse Ox 01/22/23 08:00 36.3 C L 65 18 110/61 93 01/22/23 07:14 75 20 95 01/22/23 03:26 36.4 C L 72 18 140/94 93 01/22/23 01:11 67 01/22/23 01:11 01/21/23 22:11 36.4 C L 61 18 126/79 90 01/21/23 22:10 O2 Del Method O2 Del Method O2 Flow Rate 01/22/23 08:00 Room Air 01/22/23 07:14 Room Air 01/22/23 03:26 Room Air 01/22/23 01:11 01/22/23 01:11 Room Air 01/21/23 22:11 Oxymask 2 01/21/23 22:10 Room Air Laboratory Results WBC 6.8, Hb 13.4, Hct 37, Plts 202, Na 139, K 4.4, Cl 107, CO2 27, BUN 5, Cr 15, glucose 93.
--- NOTE | 2023-01-22 10:53 | Hospitalist Progress Note ---
Date of Service January 22, 2023 Assessment & Plan (1) Stroke, Wallenberg's syndrome: (2) Dysphagia: Plan: Patient presents to the hospital with dizziness, gait instability, dysphagia and left sided numbness after chiropractic neck manipulation on Thursday of last week (6 days ago). Presented to the ED on 01/14 for dysphagia and was discharged after negative vessel studies. 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 He has significant oropharyngeal dysphagia secondary to stroke. Discussed with speech; patient will need alternative means of nutrition. GI consulted for possible PEG tube placement. Discussion done with patient at bedside. GI consulted; PEG tube placement done on January 21, 2023. GI recommends to hold Plavix for 4 days. Continue aspirin and Lipitor Nutrition on consult; discussed with nutrition to start water flushes and feeding from today. Continue PT OT while inpatient. Case management on board for rehab. Discontinue IV fluids. Ophthalmology follow-up after discharge (3) Acute hypoxemic respiratory failure: Plan: On the night of January 20, 2023; patient aspirated and desaturated to less than 90% saturation in room air. RR greater than 22. Required oxygen by OxyMask and nasal cannula. Suctioning done. NG tube was taken out Continue on airway clearance therapy with DuoNeb and hypertonic saline Currently on ceftriaxone and azithromycin. Provide 5-day course Airway clearance therapy with flutter valve. (4) Hyponatremia: Plan: Sodium dropped down to 129 on January 20 Urine electrolytes consistent with SIADH. Movement noted with IV hydration. Continue to monitor daily BMP for now (5) Hypertension: Plan: At home, on losartan and metoprolol. Resume by PEG tube. (6) Hypothyroidism: Plan: On levothyroxine at home. Resumed via PEG tube Plan DVT prophylaxis heparin Full code Disposition-PT OT eval done; will need rehab. PEG tube placed. Will be started on PEG tube feeding today.. Likely discharge to rehab in 2 to 3 days. Admission and Anticipated Discharge Date Admission Date: January 18, 2023 Subjective Patient seen and examined at bedside. He is sitting up on the chair; not in any distress. He is saturating well on room air presently. Reports that he still requiring frequent suctioning Review of Systems Review of Systems: All systems reviewed & are unremarkable except as noted in Subjective Physical Exam Physical Exam: Constitutional: WD/WN, vitals as above, NAD, sitting up in bed, pleasant, conversing easily Respiratory: Bilateral coarse crackles. Improved from previous day. Cardiovascular: RRR, no murmur, no edema Vessels: no JVD or carotid bruit Chest: normal inspection of chest Abdomen: PEG tube in place. Surrounding erythema/swelling. Musculoskeletal: no cyanosis or clubbing, extremities motor strength 5/5 Skin: no rashes, warm and dry normal turgor Neurologic: Awake alert oriented x3. 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 Left ptosis. No nystagmus. Strength symmetrical 5/5. Sensation intact. Cjgavo-hs-lhyp, eqea-ro-zntu dysmetric on the left Psychiatric: A+Ox3, euthymic affect Lymphatic: no cervical or axillary lymphadenopathy : deferred Results & Data Results & Data Vital Signs (Past 12 Hours) Vital Signs Temp Pulse Pulse Resp BP BP Pulse Ox 01/22/23 08:00 36.3 C L 65 18 110/61 93 01/22/23 07:14 75 20 95 01/22/23 03:26 36.4 C L 72 18 140/94 93 01/22/23 01:11 67 01/22/23 01:11 O2 Del Method O2 Del Method 01/22/23 08:00 Room Air 01/22/23 07:14 Room Air 01/22/23 03:26 Room Air 01/22/23 01:11 01/22/23 01:11 Room Air Laboratory Results Laboratory Results WBC 6.80 K/ul (4.8-10.8) 01/22/23 07:10 RBC 4.32 M/uL (4.70-6.10) L 01/22/23 07:10 Hgb 13.4 g/dl (14.0-18.0) L 01/22/23 07:10 Hct 37.6 % (42.0-52.0) L 01/22/23 07:10 MCV 87.0 fL (80.0-100.0) 01/22/23 07:10 MCH 31.0 pg (25.0-34.0) 01/22/23 07:10 MCHC 35.6 g/dL (32.0-36.0) 01/22/23 07:10 RDW Std Deviation 41.3 fL (36.4-46.3) 01/22/23 07:10 RDW Coeff of Dane 13.1 % (11.5-14.5) 01/22/23 07:10 Plt Count 202 K/uL (130-400) 01/22/23 07:10 MPV 11.1 fL (9.4-12.4) 01/22/23 07:10 Immature Gran % (Auto) 0.4 % 01/22/23 07:10 Neut % (Auto) 79.7 % 01/22/23 07:10 Lymph % (Auto) 12.4 % 01/22/23 07:10 Davidson % (Auto) 7.5 % 01/22/23 07:10 Eos % (Auto) 0.0 % 01/22/23 07:10 Baso % (Auto) 0.0 % 01/22/23 07:10 Neut # (Auto) 5.42 K/uL (1.40-6.50) 01/22/23 07:10 Lymph # (Auto) 0.84 K/uL (1.2-3.4) L 01/22/23 07:10 Davidson # (Auto) 0.51 K/uL (0.11-0.59) 01/22/23 07:10 Eos # (Auto) 0.00 K/uL (0-0.50) 01/22/23 07:10 Baso # (Auto) 0.00 K/uL (0-0.2) 01/22/23 07:10 Immature Gran # (Auto) 0.03 K/uL (0.01-0.20) 01/22/23 07:10 Echinocytes 2+ 01/20/23 06:47 ESR 41 mm/hr (0-20) H 01/18/23 18:58 Sodium 139 mmol/L (136-145) 01/22/23 07:10 Potassium 4.4 mmol/L (3.5-5.1) D 01/22/23 07:10 Chloride 107 mmol/L (98-107) 01/22/23 07:10 Carbon Dioxide 27 mmol/L (21-32) 01/22/23 07:10 Anion Gap 5 (3-11) 01/22/23 07:10 BUN 15 mg/dl (6-23) 01/22/23 07:10 Creatinine 0.80 mg/dl (0.6-1.4) 01/22/23 07:10 Est Cr Clr Drug Dosing 108.2 ml/min 01/22/23 07:10 Est GFR ( Amer) 111.0 ml/min 01/22/23 07:10 Est GFR (Non-Af Amer) 95.7 ml/min 01/22/23 07:10 BUN/Creatinine Ratio 18.8 (10-20) 01/22/23 07:10 Glucose 93 mg/dl (70-99(Fasting)) 01/22/23 07:10 POC Glucose 99 mg/dl (70-99) 01/21/23 06:19 Estimat Average Glucose 117 mg/dl 01/19/23 06:52 Hemoglobin A1c 5.7 % (4.5-5.6) H 01/19/23 06:52 Calcium 8.7 mg/dl (8.6-10.3) 01/22/23 07:10 Phosphorus 2.8 mg/dl (2.5-4.9) 01/18/23 18:58 Magnesium 2.0 mg/dl (1.7-2.4) 01/18/23 18:58 Total Bilirubin 0.7 mg/dl (0.2-1.0) 01/18/23 18:58 AST 17 U/L (13-39) 01/18/23 18:58 ALT 12 U/L (7-52) 01/18/23 18:58 Alkaline Phosphatase 55 U/L (34-104) 01/18/23 18:58 Total Creatine Kinase 81 U/L (30-223) 01/18/23 18:58 Troponin I High Sens 7.0 pg/ml (0-20) 01/18/23 18:58 C-Reactive Protein 1.32 mg/dl (0-0.5) H 01/18/23 18:58 Total Protein 6.6 gm/dl (6.0-8.3) 01/18/23 18:58 Albumin 3.9 gm/dl (3.4-5.0) 01/18/23 18:58 Globulin 2.7 gm/dl (2.5-4.0) 01/18/23 18:58 Albumin/Globulin Ratio 1.4 (0.9-2) 01/18/23 18:58 Triglycerides 130 mg/dl (0-150) 01/19/23 06:52 Cholesterol 161 mg/dl (0-200) 01/19/23 06:52 LDL Cholesterol, Calc 95 mg/dl 01/19/23 06:52 VLDL Cholesterol, Calc 26 mg/dl (0-30) 01/19/23 06:52 HDL Cholesterol 40 mg/dl 01/19/23 06:52 Cholesterol/HDL Ratio 4.0 (0-5) 01/19/23 06:52 Lipase 14 U/L (11-82) 01/18/23 18:58 Vitamin B12 284 pg/ml (180-914) 01/19/23 06:52 TSH 3.295 uIu/ml (0.300-4.500) 01/18/23 18:58 Urine Color Yellow 01/19/23 03:40 Urine Appearance Clear (Clear) 01/19/23 03:40 Urine pH 6.5 (4.5-7.5) 01/19/23 03:40 Ur Specific Fithian 1.025 (1.000-1.030) 01/19/23 03:40 Urine Protein Negative (Negative) 01/19/23 03:40 Urine Glucose (UA) Negative (Negative) 01/19/23 03:40 Urine Ketones Negative (Negative) 01/19/23 03:40 Urine Blood Negative (Negative) 01/19/23 03:40 Urine Nitrite Negative (Negative) 01/19/23 03:40 Urine Bilirubin Negative (Negative) 01/19/23 03:40 Urine Urobilinogen Negative (Negative) 01/19/23 03:40 Ur Leukocyte Esterase Negative (Negative) 01/19/23 03:40 Urine Osmolality 535 mOsm/kg (500-800) 01/21/23 03:52 Ur Random Creatinine 99.1 mg/dl 01/21/23 03:52 Urine Sodium 32 mmol/L 01/21/23 03:52 Urine Potassium 44.8 mmol/L 01/21/23 03:52 Urine Chloride 31 mmol/L 01/21/23 03:52 Lyme Disease IgG Ab Negative (Negative) 01/18/23 18:58 Lyme IgG (Western Blot) NEGATIVE (NEGATIVE) 01/18/23 18:58 Lyme IgG 18 kDa Band NON-REACTIVE 01/18/23 18:58 Lyme IgG 23 kDa Band NON-REACTIVE 01/18/23 18:58 Lyme IgG 28 kDa Band NON-REACTIVE 01/18/23 18:58 Lyme IgG 30 kDa Band NON-REACTIVE 01/18/23 18:58 Lyme IgG 39 kDa Band NON-REACTIVE 01/18/23 18:58 Lyme IgG 41 kDa Band REACTIVE A 01/18/23 18:58 Lyme IgG 45 kDa Band NON-REACTIVE 01/18/23 18:58 Lyme IgG 58 kDa Band NON-REACTIVE 01/18/23 18:58 Lyme IgG 66 kDa Band NON-REACTIVE 01/18/23 18:58 Lyme IgG 93 kDa Band NON-REACTIVE 01/18/23 18:58 Lyme IgM Ab (WB) NEGATIVE (NEGATIVE) 01/18/23 18:58 Lyme Disease IgM Ab Equivocal (Negative) A 01/18/23 18:58 Lyme IgM 23 kDa Band NON-REACTIVE 01/18/23 18:58 Lyme IgM 39 kDa Band NON-REACTIVE 01/18/23 18:58 Lyme IgM 41 kDa Band NON-REACTIVE 01/18/23 18:58 SARS-CoV-2, RNA, NAAT NEGATIVE (NEGATIVE) 01/18/23 19:20 Impressions Chest CTA 01/18/23 18:56 Exam(s): CTA CHEST W/WO Contrast IV Amt: 106 ml optiray 320 EXAM: CT Angiography Chest Without and With Intravenous Contrast CLINICAL HISTORY: Reason for exam: left face/arm, b/l lip, BLE numbness, CP, HTN. TECHNIQUE: Axial computed tomographic angiography images of the chest without and with intravenous contrast. CTDI is 18.21 mGy and DLP is 715.21 mGy-cm. Automated exposure control was utilized for the study. A dose lowering technique was utilized adhering to the principles of ALARA. MIP reconstructed images were created and reviewed. CONTRAST: Patient received 106 ml optiray 320 of IV contrast COMPARISON: No relevant prior studies available. FINDINGS: Pulmonary arteries: No central PE. Suboptimal bolus timing for evaluation of the distal pulmonary arteries. Aorta: No acute aortic syndrome. Lungs: Atelectasis in the lungs. Pleural space: Unremarkable. Heart: Moderate coronary artery calcifications. Bones/joints: No acute fracture. Soft tissues: Unremarkable. Lymph nodes: Unremarkable. IMPRESSION: No acute findings in the visualized arteries of the chest. Electronically signed by: Connor Robles MD 01/18/23 21:34 PM Head CTA 01/18/23 18:56 Exam(s): CTA HEAD With Contrast IV Amt: 106 ml optiray 320 EXAM: CT Angiography Head With Intravenous Contrast CLINICAL HISTORY: Reason for exam: left face/arm, b/l lip, BLE numbness, CP, HTN. TECHNIQUE: Axial computed tomographic angiography images of the head with intravenous contrast. Automated exposure control was utilized for the study. A dose lowering technique was utilized adhering to the principles of ALARA. MIP reconstructed images were created and reviewed. CONTRAST: Patient received 106 ml optiray 320 of IV contrast COMPARISON: No relevant prior studies available. FINDINGS: Right internal carotid artery: No acute findings. Intracranial segment is patent with no significant stenosis. No aneurysm. Right anterior cerebral artery: Unremarkable. No occlusion or significant stenosis. No aneurysm. Right middle cerebral artery: Unremarkable. No occlusion or significant stenosis. No aneurysm. Right posterior cerebral artery: Unremarkable. No occlusion or significant stenosis. No aneurysm. Right vertebral artery: Unremarkable as visualized. Left internal carotid artery: No acute findings. Intracranial segment is patent with no significant stenosis. No aneurysm. Left anterior cerebral artery: Unremarkable. No occlusion or significant stenosis. No aneurysm. Left middle cerebral artery: Unremarkable. No occlusion or significant stenosis. No aneurysm. Left posterior cerebral artery: Unremarkable. No occlusion or significant stenosis. No aneurysm. Left vertebral artery: Unremarkable as visualized. Basilar artery: Unremarkable. No occlusion or significant stenosis. No aneurysm. IMPRESSION: Normal head CTA. Electronically signed by: Connor Robles MD 01/18/23 21:38 PM Neck CTA 01/18/23 18:56 Exam(s): CTA NECK With Contrast IV Amt: 106 ml optiray 320 EXAM: CT Angiography Neck With Intravenous Contrast CLINICAL HISTORY: Reason for exam: left face/arm, b/l lip, BLE numbness, CP, HTN. TECHNIQUE: Routine carotid CT angiography protocol was performed with intravenous contrast. NASCET criteria using the distal ICAs for comparison were used for evaluation of stenoses. CTDI is 15.02 mGy and DLP is 987.86 mGy-cm. Automated exposure control was utilized for the study. A dose lowering technique was utilized adhering to the principles of ALARA. MIP reconstructed images were created and reviewed. CONTRAST: Patient received 106 ml optiray 320 of IV contrast COMPARISON: None. FINDINGS: VASCULATURE: Right common carotid artery: Unremarkable. No occlusion or significant stenosis. No dissection. Right internal carotid artery: Atheromatous plaque within the proximal right internal carotid artery causing 40-50 % stenosis. No dissection. Right external carotid artery: Unremarkable. No occlusion. Right vertebral artery: Unremarkable. No occlusion or significant stenosis. No dissection. Left common carotid artery: Unremarkable. No occlusion or significant stenosis. No dissection. Left internal carotid artery: Unremarkable. Extracranial segment is patent with no occlusion or significant stenosis. No dissection. Left external carotid artery: Unremarkable. No occlusion. Left vertebral artery: Unremarkable. No occlusion or significant stenosis. No dissection. NECK: Bones/joints: Unremarkable. Soft tissues: Unremarkable. Lung apices: Clear. CAROTID STENOSIS REFERENCE USING NASCET CRITERIA: % ICA stenosis = (1 - narrowest ICA diameter/diameter of distal cervical ICA) x 100. Mild - <50% stenosis. Moderate - 50-69% stenosis. Severe - 70-94% stenosis. Near occlusion - 95-99% stenosis. Occluded - 100% stenosis. IMPRESSION: Atheromatous plaque within the proximal right internal carotid artery causing 40-50 % stenosis. Electronically signed by: Connor Robles MD 01/18/23 21:36 PM Brain MRI 01/19/23 01:01 MR brain wo/w con CLINICAL HISTORY: stroke like symptoms , left facial numbness and tingling TECHNIQUE: Multiplanar and multisequence MR images of the brain were obtained prior to and following administration of gadolinium contrast. Comparison: Comparison is made to MRI brain 07/18/2016 FINDINGS: No abnormal restricted diffusion is identified. Foci of T2 and FLAIR hyperintensity are noted in the paraventricular areas consistent with chronic small vessel ischemic disease. Ex vacuo ventriculomegaly and sulcal enlargement is noted compatible with diffuse volume loss. No mass or abnormal enhancement is seen. There is no mass effect or midline shift. There is no evidence of acute intraparenchymal hemorrhage. No extra axial fluid collections are seen. The corpus callosum, pituitary gland, and cerebellar tonsils appear grossly unremarkable. Flow voids of the major intracranial arterial vessels are identified. The imaged portions of the paranasal sinuses, mastoid air cells, and orbits are unremarkable. Within limits of a nondedicated exam, previously noted pituitary adenoma is not seen on today's exam. IMPRESSION: No acute abnormality and in particular no evidence of acute infarct. ACT 112: Negative or not required by law. Electronically signed by: Anand Angel M.D. 01/19/2023 8:59 AM KUB X-Ray 01/19/23 13:51 XR KUB/Abdomen 1 view CLINICAL HISTORY: coresafe tube placement TECHNIQUE: 1 view of the abdomen was obtained. Comparison: Comparison is made to CT abdomen pelvis 05/28/2020 FINDINGS: Enteric tube terminates below the diaphragm. Degenerative changes are seen in the visualized skeleton. The bowel gas pattern is nonobstructive. A moderate amount of stool is noted within the large bowel. IMPRESSION: Satisfactory position of enteric tube. ACT 112: Negative or not required by law. Electronically signed by: Anand Angel M.D. 01/19/2023 2:43 PM Chest X-Ray 01/19/23 20:54 XR chest 1V portable CLINICAL HISTORY: Hypoxia. COMPARISON STUDY: Chest radiograph and chest CT January 18, 2023. FINDINGS: The tip of the feeding tube projects in the proximal body of the stomach. There is no pneumothorax or pleural effusion. Interstitial thickening and mild right lung airspace opacities. Cardiomediastinal silhouette is stable. IMPRESSION: 1. Interval development of interstitial thickening and mild right lung airspace opacities. This favors pulmonary edema. An infectious process could appear similar. 2. Tip of nasogastric tube projects over the body of the stomach. The tube could be advanced before obtaining a KUB. ACT 112: Negative or not required by law. Electronically signed by: Bucky Viera M.D. 01/20/2023 6:[address] 01/20/23 07:50 CT OF THE HEAD WITHOUT CONTRAST CLINICAL HISTORY: Confusion. Recent stroke. COMPARISON STUDY: Head CT and CTA of the head January 18, 2023 and MRI the brain January 19, 2023. CT DOSE: 625.80 mGy.cm TECHNIQUE: Helical axial images of the head were obtained without IV contrast. Automated exposure control was utilized for the study. A dose lowering technique was utilized adhering to the principles of ALARA. FINDINGS: No acute intracranial hemorrhage, midline shift or mass effect is present. White matter hypodensities are unchanged and suggest small vessel disease. The ventricular system is unremarkable. The basal cisterns are patent. No extra-axial collections are present. There are no findings to suggest acute dural sinus thrombosis or acute territorial infarct. The small right lateral medullary infarct on MRI of January 19, [address] visualized [address] CT. No significant calvarial abnormalities are present. Visualized portions of the sinuses and mastoid air cells are clear. IMPRESSION: 1. No acute intracranial hemorrhage or mass effect. 2. Small right lateral medullary infarct on MRI of January 19, [address]. ACT 112: Negative or not required by law. Electronically signed by: Bucky Viera M.D. 01/20/2023 9:30 AM
[2023-01-22] MEDS ORDERED: FIBERSOURCE HN 1.2 CAL 1000 ML BAG GT SCH (12:00)
[2023-01-22] MEDS: TUBE FEEDING WATER FLUSH NG SCH (12:52)
[2023-01-22] MEDS: TUBE FEEDING WATER FLUSH GT SCH ×3 (14:44→22:11)
[2023-01-22] MEDS: cefTRIAXone SODIUM 2,000 MG in DEXTROSE 5% 50 ML IV SCH (22:08)
[2023-01-23] MEDS: TUBE FEEDING WATER FLUSH GT SCH ×5 (02:00→17:44)
[2023-01-23] MEDS: HEPARIN SOD 5,000 UNIT/0.5 ML VIAL SQ SCH ×2 (05:27→13:38)
[2023-01-23] MEDS: LEVOTHYROXINE SODIUM 25 MCG TABLET PO SCH (05:28)
[2023-01-23] MEDS: ALBUT/IPRATROP 3MG/0.5MG NEB 3 ML VIAL NEB SCH (07:15)
[2023-01-23] MEDS: SODIUM CHLOR 7% 4 ML NEB NEB SCH (07:15)
[2023-01-23 08:57] LABS: Basophils # (auto) 0.06 K/uL (0-0.2); Eosinophils # (auto) 0.07 K/uL (0-0.50); Eosinophils % (auto) 1.1 %; Hematocrit (blood only) 37.9 % (42.0-52.0); Hemoglobin 13.2 g/dl (14.0-18.0); Immature Granulocytes # (auto) 0.03 K/uL (0.01-0.20); Immature Granulocytes % (auto) 0.5 %; Lymphocytes # (auto) 2.09 K/uL (1.2-3.4); Lymphocytes % (auto) 33.4 %; Mean Corpuscular Hemoglobin 30.4 pg (25.0-34.0); Mean Corpuscular Hgb Conc 34.8 g/dL (32.0-36.0); Mean Corpuscular Volume 87.3 fL (80.0-100.0); Mean Platelet Volume 11.2 fL (9.4-12.4); Monocytes # (auto) 0.39 K/uL (0.11-0.59); Monocytes % (auto) 6.2 %; Neutrophils # (auto) 3.62 K/uL (1.40-6.50); Neutrophils % (auto) 57.8 %; Platelet Count 220 K/uL (130-400); RDW Coefficient of Variation 13.3 % (11.5-14.5); RDW Standard Deviation 42.5 fL (36.4-46.3); Red Blood Count 4.34 M/uL (4.70-6.10); White Blood Count 6.26 K/ul (4.8-10.8)
[2023-01-23 09:04] LABS: BUN Creatinine Ratio 25.6 (10-20); Creatinine Clr Calc Pharmacy 100.6 ml/min; Est GFR (African American) 107.7 ml/min; Est GFR (Non-African American) 92.9 ml/min; Potassium 3.7 mmol/L (3.5-5.1)
[2023-01-23] MEDS ORDERED: PANTOprazole 40 MG TAB PO SCH (09:15)
[2023-01-23] MEDS ORDERED: ASPIRIN 81 MG CHEW PO SCH (09:15)
[2023-01-23] MEDS: ATORVASTATIN 40 MG TAB PO SCH (09:50)
[2023-01-23] MEDS: CHOLECALCIFEROL 1,000 UNITS 25 MCG TAB PO SCH (09:51)
[2023-01-23] MEDS: LOSARTAN POTASSIUM 25 MG TAB PO SCH (09:51)
[2023-01-23] MEDS: METOPROLOL SUCC 25MG EXT REL TAB PO SCH (09:51)
[2023-01-23] MEDS: ASPIRIN 81 MG ECTAB PO SCH (10:07)
[2023-01-23] MEDS: PANTOprazole 40 MG TAB PO SCH (10:07)
[2023-01-23] MEDS ORDERED: METOPROLOL TARTRATE 25 MG TAB PO SCH (10:15)
--- NOTE | 2023-01-23 13:27 | Discharge Summary ---
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 The patient was here in the ER on 01/14/2023 because the night before he could not swallow and it continued for 24 hours. . At that time, he also felt left side and left arm were somewhat numb and his workup in ER with CTA of the head and CTA of the head were negative, so he was discharged. After going home, symptoms had been waning and waxing and now while walking, he is wobbly and he felt also some numbness in his lips. His difficulty swallowing is on and off and her symptoms are not improving and getting worse. He came to the ER again. Again, today,CT head, CTA of the neck and CTA of the head unremarkable. Resting comfortably, hemodynamically stable. Has some dizziness. No headache. Vision not exact double vision, but seems double vision, started today morning. He chronically has problem left eye lateral gaze He has some ear fullness. No runny nose, no sore throat, no cough, no chest pain, no shortness of breath, no nausea, no abdominal pain. Normal bowel and bladder movements. Hemodynamics are stable.Denies tick bite. Admission Exam Per Admitting Provider GENERAL: The patient is moderate build, not in acute distress. VITAL SIGNS: Temperature 37.1, pulse 50, respiratory rate 20, blood pressure 158/79, oxygen 96% on room air. HEENT: Pupils equal, round and reactive to light. No facial droop. Speech is clear. Oral mucosa moist. Tongue is midline.Ear wax seen. NECK: No JVD, no neck masses. CARDIOVASCULAR: S1 and S2 heard. Regular rate and rhythm. No murmur, no gal lop. RESPIRATORY: Normal AP diameter. No accessory muscle use. No wheezing, no crackles. ABDOMEN: Soft, bowel sounds present, nontender, no distention. CENTRAL NERVOUS SYSTEM: Alert and oriented. Speech is clear. Can raise his brows. No facial droop. Tongue is midline. Power 5/5 in all extremities. Coordination of movements normal. No pronator drift. Sensation slightly diminished in the left upper extremity. EXTREMITIES: No edema, no erythema. Principal Diagnosis (1) Stroke, Wallenberg's syndrome: (2) Dysphagia PEG tube placement done on January 21, 2023. (3) Acute hypoxemic respiratory failure: Discharge Exam Constitutional: WD/WN, vitals as above, NAD, sitting up in bed, pleasant, conversing easily Respiratory: Bilateral clear breath sound. Cardiovascular: RRR, no murmur, no edema Vessels: no JVD or carotid bruit Chest: normal inspection of chest Abdomen: PEG tube in place. no Surrounding erythema/swelling. Musculoskeletal: no cyanosis or clubbing, extremities motor strength 5/5 Skin: no rashes, warm and dry normal turgor Neurologic: Awake alert oriented x3. 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 Left ptosis. No nystagmus. Strength symmetrical 5/5. Sensation intact. [id number]-ld-[id number], lzqf-ck-toiu dysmetric on the left Psychiatric: A+Ox3, euthymic affect Lymphatic: no cervical or axillary lymphadenopathy : deferred Discharge Data Allergies Allergy/AdvReac Type Severity Reaction Status Date / Time lisinopril Allergy Unknown dry cough Verified 01/14/23 22:43 doxycycline Allergy Hives Verified 01/14/23 22:44 Consultations 01/18/23 21:41 ED Decision to Admit Stat 01/19/23 08:00 Consult Neurology Routine 01/20/23 11:36 Consult Gastroenterology Routine Procedures Performed Operation Date: 01/21/23 16:45 Actual Procedures p EGD Gastric Tube Placement - Flash Bradley MD Ordered Studies 01/18/23 18:56 CT angio chest dissec wo/w con Stat CT angio head w con Stat CT angio neck with con Stat CT head/brain wo con Stat 01/19/23 01:01 MR brain wo/w con Routine 01/20/23 07:50 CT head/brain wo con Urgent Hospital Course (1) Stroke, Wallenberg's syndrome: (2) Dysphagia: Patient presents to the hospital with dizziness, gait instability, dysphagia and left sided numbness after chiropractic neck manipulation on Thursday of last week (6 days ago). 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 He has significant oropharyngeal dysphagia secondary to stroke. Discussed with speech; patient will need alternative means of nutrition. Discussion done with patient at bedside. GI consulted; PEG tube placement done on January 21, 2023. Nutrition consult was done during the hospitalization. Patient was started on tube feeding and tolerating well. He was at 45 cc/h of tube feeds; plan is to continue to advance tube feed every 6 hours by 10 cc/h; goal is 75 cc/h. GI recommended to hold Plavix for 4 days after procedure. Patient to be started on Plavix on January 25. Continue aspirin indefinitely. Continue aspiration precautions, swallowing speech therapy at rehab. (3) Acute hypoxemic respiratory failure: On the night of January 20, 2023; patient aspirated and desaturated to less than 90% saturation in room air. RR greater than 22. Required oxygen by OxyMask and nasal cannula. Suctioning done. NG tube was taken out Complete antibiotic course At rehab; continue on airway clearance therapy with DuoNeb and hypertonic saline, Airway clearance therapy with flutter valve. (4) Hyponatremia: Sodium dropped down to 129 on January 20 Urine electrolytes consistent with SIADH. Movement noted with IV hydration. Continue to monitor daily BMP for now (5) Hypertension: At home, on losartan and metoprolol. Resume by PEG tube. (6) Hypothyroidism: On levothyroxine at home. Resumed via PEG tube Plan Patient was discharged to acute rehab. Please note the above document was generated using voice recognition software. It may contain grammatical, syntax or spelling errors. Any formal questions or concerns about the content, text or information contained within the body of this dictation should be directly addressed to the provider for clarification Total Time Total Time Spent Total Time Spent (In Minutes): 45 Total Time Includes: Examination of the Patient, Discharge Planning, Medication Reconciliation, Communication With Other Providers and Other Discharge Plan Discharge Items Patient Disposition: Transfer Inpatient Rehab Fac Reason For Visit: NEURO SYMPTOMS Discharge Diagnosis: (1) Stroke, Wallenberg's syndrome: (2) Dysphagia: 3) acute hypoxic respiratory failure secondary to aspiration pneumonia Activity: Resume your previous activity Non-emergency contact: Primary Care Provider Call non-emergency contact if: you have any medication questions and your symptoms worsen Follow-up/Referrals: Gabriela Sevilla PA-C [Physician Development Writer] - (Date & Time 02/25/2023 11:20 AM Provider Gabriela Sevilla PA-C Department Neurology [facility] ) Martita Urbina PA-C [Primary Care Provider] - Diet: Nothing by Mouth Addtl Attending Provider Instructions: A) You were admitted to the hospital with a stroke. You underwent PEG tube placement on January 20, 2023 for dysphagia. B) Please follow the Nutrition recommendations: 1) Fibersource HN @ 15/hr to advance as tolerated by 10 mL/h every 6 hours to 75 mL/h continuous. Currently, patient is at 45 mL/h. Please continue to advance it as tolerated in the rehab. 2) free water flushes of 120 mL every 4 hours. 3) keep head elevated to greater than 30 to 45 degrees at all times 4) provide mouth care every 4 hours. C) Please start on Plavix on January 25, 2023 and stop it on February 15, 2023( After 3 weeks). Please continue aspirin indefinitely. D) Please continue aspiration precautions, DuoNeb, hypertonic saline nebs for airway clearance. Also use flutter valve for airway clearance. Continue swallow any speech therapy at the rehab. Pending Studies at Discharge: No Stand-Alone Forms: My [facility] Skilled Items Patient informed of condition?: Yes DNR: No Discharge Level of Care: Acute rehab Communicable Disease: No Discharge Prognosis: Stable Lines: None Urinary Catheter: No Medications and DC Order Prescriptions: New ipratropium-albuterol 0.5 mg-3 mg(2.5 mg base)/3 mL Solution For Nebulization 3 ml NEB BIDR Qty: 90 0RF pantoprazole 40 mg Tablet,Delayed Release (Dr/Ec) 40 mg PO QAM Qty: 30 0RF aspirin [Children's Aspirin] 81 mg Tablet,Chewable 81 mg PO DAILY Qty: 30 0RF metoprolol tartrate 25 mg Tablet 12.5 mg PO BID Qty: 60 0RF sodium chloride 7 % Solution For Nebulization 4 ml NEB BIDR Qty: 120 0RF Continued losartan 25 mg tablet 25 mg PO DAILY levothyroxine 25 mcg tablet 25 mcg PO QAM cholecalciferol (vitamin D3) 50 mcg (2,000 unit) capsule 50 mcg PO QAM atorvastatin 40 mg tablet 40 mg PO QAM Discontinued metoprolol succinate 25 mg tablet extended release 24 hr 25 mg PO DAILY aspirin 81 mg Tablet,Delayed Release (Dr/Ec) 81 mg PO QAM 30 Days Qty: 30 2RF omeprazole 20 mg capsule,delayed release(DR/EC) 20 mg PO QAM Discharge Orders: Discharge Order (Routine); Ordered 01/23/23 Ordered By: Everett Mendez Admission Data Admit Date/Time: 01/18/23 23:28 Attending Provider: Everett Mendez Admit Provider: Wood Cox Primary Care Provider: Martita Urbina Other Providers: Wood Cox ; Abdirizak Hampton ; Amilcar Segura ; Zuleyka Hawk ; Brooke Neri ; Mahi Contreras ; Jerica Velásquez ; Mac Wharton ; Pollo Sigala ; Jr Carlson ; Bhargavi Slater ; Hao Cerrato ; Francisca Mcintyre ; Sravani Farley ; Pushpa Dumont ; Laya Green ; Flash Bradley ; Vito Villalobos ; Buck Jarrett ; Nina Resendez ; Milvia Glover Jr ; [facility] ; [facility] Other Interventions: Discharge Summary Assessment (RN) Last Done: 01/21/23 12:48
--- NOTE | 2023-01-27 15:26 | Coding Query ---
To promote full compliance with coding requirements relating to patient care, provider participation is requested in all cases of sales recruitment specialist uncertainty. Please assist us with the question(s) below: Coding Question(s): The diagnosis(es) below was documented in the H&P then subsequently fell off all further documentation. Please indicate if it was still a possible diagnosis or ruled out on discharge. Documentation in the H&P states, " Questionable Lyme disease. Er started on Rocephin which will be continued. The patient says he was treated for Lyme disease last year by his PCP. Lyme screen equivocal." Physician's Response(s): Lyme Disease ( ) Diagnosed and treated ( X ) Ruled out ( ) Other (please specify) Thank you for your time, FLOR Figueroa, EDGE CUTTING MACHINE OPERATOR ANJUMD
== END 2023-01-23 18:41 | DRG 64 ==
LOC: ED 18:13 → SUATTDRO 23:28 → 2N 23:28